=== PATIENT | female | born 1995 | race Caucasian/White ===

== ENCOUNTER 2016-05-26 13:53 | Emergency (ER) | payer MEDICAID, OTHER ==
[~2016-05-26 13:53] MED LIST: ACCUTES VI; CLIN1CAP5 PO; METF500T PO; [UNRECOGNIZED DRUG - CODE] VI
--- NOTE | 2016-05-26 16:03 | EDDOCDS ---
Nurse's Notes [facility] Name: Elena Morejon Age: 20 yrs Sex: Female : 1995 Arrival Date: 05/26/2016 Time: 13:53 Bed [facility] Private MD: NO PRIMARY PHYSICIAN, . Diagnosis: Adjustment disorder with depressed mood Presentation: 05/26 14:02 Presenting complaint: Patient states: MHE, states feeling sad because her father joann doesn't love her. Denies feeling suicidal or homicidal, ''I just want to talk to someone''. Mental Health Triage Level: Level 1- Pt displays no suicidal or homicidal ideations and does not appear to be a danger to self or others. Adult Sepsis Screening: The patient does not have new or worsening altered mentation. Patient's respiratory rate is less than 22. Systolic blood pressure is greater than 100. Patient has a qSOFA score of 0- Negative Sepsis Screen. Suicide/Homicide risk assessment- the patient denies having any suicidal and/or homicidal ideations and does not present with any other emotional, behavioral or mental health complaints. Status: Patient is not a food service substitute or dependent. Transition of care: patient was not received from another setting of care. 14:02 Acuity: SILVIA Level 4 [facility] 14:02 Method Of Arrival: Walkin/Carried/Asstd [facility] 14:11 Red Flag criteria, patient assessed and taken directly to a bed. [facility] Triage Assessment: 14:07 General: Appears in no apparent distress, comfortable, Behavior is cooperative. Pain: dwg Denies pain. Pt Declines HIV testing. 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 metformin 500 mg Oral Tb24 1 tab 2 times per day (Last dose: 05/26/2016 08:00) 2. Toujeo SoloStar 300 unit/mL (1.5 mL) subcutaneous inpn 26 unit nightly (Last dose: 05/25/2016) 3. NR insulin sliding scale three times a day 4. omeprazole 20 mg Oral cpDR 1 cap 2 times per day (Last dose: 05/26/2016 08:00) - PMHx: GERD; right knee pain; Type 2 Diabetes on Insulin with poor control; - PSHx: Drained fluid form right knee; - Social history: Smoking status: Patient states was never smoker of tobacco. No barriers to communication noted, The patient speaks fluent Italian. - Family history: Not pertinent. - : The pt / caregiver states he / she is not on anticoagulants. Home medication list is obtained from. - Exposure Risk Screening:: None identified. Screenin:00 Infection Control. elp 16:00 Screening information is obtained from the patient. Fall risk: No risks identified. pml Assistance ADL's: requires no assistance with activities of daily living. Abuse/DV Screen: The patient / caregiver reports he/she is: not in a situation that causes fear, pain or injury. Nutritional screening: No deficits noted. Advance Directives: Currently, there is no health care proxy. home support is adequate. Assessment: 14:15 General: Appears in no apparent distress, comfortable, Behavior is appropriate for age, pml crying. General: Appears unkempt. Neurological: Level of Consciousness is awake, alert, Oriented to person, place, time. Cardiovascular: Capillary refill < 3 seconds. Respiratory: Airway is patent Respiratory effort is even, unlabored. GI: Abdomen is non- distended. Derm: Skin is pink, warm & dry. 15:16 General: pt pacing in room. SO at bedside. awaiting conversation with PSA. pml 16:00 General: Appears in no apparent distress, comfortable, Behavior is appropriate for age. pml Neurological: Neurological: Level of Consciousness is awake, alert, Oriented to person, place, time. Cardiovascular: Capillary refill < 3 seconds. Respiratory: Airway is patent Respiratory effort is even, unlabored. Derm: Skin is pink, warm & dry. Vital Signs: 14:01 BP 146 / 95; Pulse 135; Resp 20; Temp 98.8; Pulse Ox 97% ; Weight 104.33 kg; Height 5 elp ft. 10 in. (177.80 cm); Pain 0/10; 16:00 BP 150 / 91; Pulse 120; Resp 20; Temp 97.4; Pulse Ox 98% on R/A; pml 14:01 Body Mass Index 33.00 (104.33 kg, 177.80 cm) elp Vitals: 14:01 Log In Time: May 26, 2016 at 13:59. RN notified that patient meets Red Flag elp criteria. ED Course: 13:59 Patient visited by Patchen, Bernice, LEAD MOBILE DEVELOPER. elp 13:59 Patient moved to Waiting elp 14:00 NO PRIMARY PHYSICIAN, . is Private Physician. elp 14:00 Patient moved to 31 elp 14:04 Triage Initiated dwg 14:29 Patient moved to [facility] pml 14:36 Jaylin Main, MATTHEW [facility]. le 14:42 Patient visited by Liam Oneil. dpm 14:43 Patient visited by Jaylin Main FNP. le 14:50 Patient visited by Liam Oneil. dpm 14:57 Patient visited by Yodit Veras,KOMAL. pml 15:11 Patient visited by Liam Oneil. dpm 15:16 Patient visited by Yodit Veras RN. pml 15:33 Patient visited by Liam Oneil. dpm 15:45 Patient visited by Liam Oneil. dpm 15:45 [facility] [place] Agreement was scanned into [employer] and attached to record. lg 15:47 Referral list, As provided by PFS is Referral Physician. le 16:00 The patient / caregiver is instructed regarding the plan of care and ED course. Patient pml has correct armband on for positive identification. Placed in gown. Bed in low position. Call light in reach. Side rails up X2. 16:00 No IV's were initiated during this patient's visit. No procedures done that require pml assistance. Order Results: There are currently no results for this order. Outcome: 15:47 Discharge ordered by Provider. le 16:00 Discharge Assessment: Patient awake, alert and oriented x 3. No cognitive and/or pml functional deficits noted. Patient verbalized understanding of disposition instructions. patient administered narcotics - no. The following High Risk Discharge criteria are identified: None. Discharged to home ambulatory. Condition: good Condition: stable. Discharge instructions given to patient, Instructed on discharge instructions, follow up and referral plans. No special radiology studies were completed. Property sent home with patient. 16:02 Patient left the ED. pml Signatures: Chance Benson RN RN Enrico Francois, Reg Reg lg Jaylin Main, MATTHEW SALESPERSON [employer] le Yodit Veras RN RN pml Liam Oneil dpm Bernice Rodriguez, LEAD MOBILE DEVELOPER LEAD MOBILE DEVELOPER elp MTDD
--- NOTE | 2016-05-26 16:03 | EDDOCDS ---
Physician Documentation [facility] Name: Elena Morejon Age: 20 yrs Sex: Female : 1995 Arrival Date: 05/26/2016 Time: 13:53 Bed [facility] Private MD: NO PRIMARY PHYSICIAN, . Disposition: 05/26/16 15:47 Discharged to Home/Self Care. Impression: Adjustment disorder with depressed mood. - Condition is Stable. - Discharge Instructions: Depression, Adult. - Medication Reconciliation, Local Pharmacy Hours form. - Follow up: Referral list, As provided by PFS; When: Call to arrange an appointment; Reason: Recheck today's complaints, Continuance of care. - Problem is an acute exacerbation. - Symptoms are unchanged. - Notes: Return to the ED for worsening symptoms. Especially if feeling suicidal Historical: - Allergies: no known allergies; - Home Meds: 1. metformin 500 mg Oral Tb24 1 tab 2 times per day (Last dose: 05/26/2016 08:00) 2. Toujeo SoloStar 300 unit/mL (1.5 mL) subcutaneous inpn 26 unit nightly (Last dose: 05/25/2016) 3. NR insulin sliding scale three times a day 4. omeprazole 20 mg Oral cpDR 1 cap 2 times per day (Last dose: 05/26/2016 08:00) - PMHx: GERD; right knee pain; Type 2 Diabetes on Insulin with poor control; - PSHx: Drained fluid form right knee; - Social history: Smoking status: Patient states was never smoker of tobacco. No barriers to communication noted, The patient speaks fluent Khmer. - Family history: Not pertinent. - : The pt / caregiver states he / she is not on anticoagulants. Home medication list is obtained from. - Exposure Risk Screening:: None identified. 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 10 in. (177.80 cm); Pain 0/10; 16:00 BP 150 / 91; Pulse 120; Resp 20; Temp 97.4; Pulse Ox 98% on R/A; pml 14:01 Body Mass Index 33.00 (104.33 kg, 177.80 cm) elp MDM: 15:29 Financial registration complete. lg 15:45 [facility] Payment Agreement was scanned into [employer] and attached to record. lg Signatures: Chance Benson, RN RN dwEnrico Francois, Reg Reg lg Jaylin Main, COLDFUSION COLDFUSION Yodit Nichole RN RN pml The chart was reviewed and I authenticate all verbal orders and agree with the evaluation and treatment provided.Attachments: 15:45 [facility] Payment Agreement lg MTDD
--- NOTE | 2016-05-28 17:04 | EDDOCDS ---
Physician Documentation [facility] Name: Elena Morejon Age: 20 yrs Sex: Female : 1995 Arrival Date: 05/26/2016 Time: 13:53 Bed [facility] Private MD: NO PRIMARY PHYSICIAN, . Disposition: 05/26/16 15:47 Discharged to Home/Self Care. Impression: Adjustment disorder with depressed mood. - Condition is Stable. - Discharge Instructions: Depression, Adult. - Medication Reconciliation, Local Pharmacy Hours form. - Follow up: Referral list, As provided by PFS; When: Call to arrange an appointment; Reason: Recheck today's complaints, Continuance of care. - Problem is an acute exacerbation. - Symptoms are unchanged. - Notes: Return to the ED for worsening symptoms. Especially if feeling suicidal Historical: - Allergies: no known allergies; - Home Meds: 1. metformin 500 mg Oral Tb24 1 tab 2 times per day (Last dose: 05/26/2016 08:00) 2. Toujeo SoloStar 300 unit/mL (1.5 mL) subcutaneous inpn 26 unit nightly (Last dose: 05/25/2016) 3. NR insulin sliding scale three times a day 4. omeprazole 20 mg Oral cpDR 1 cap 2 times per day (Last dose: 05/26/2016 08:00) - PMHx: GERD; right knee pain; Type 2 Diabetes on Insulin with poor control; - PSHx: Drained fluid form right knee; - Social history: Smoking status: Patient states was never smoker of tobacco. No barriers to communication noted, The patient speaks fluent Azeri. - Family history: Not pertinent. - : The pt / caregiver states he / she is not on anticoagulants. Home medication list is obtained from. - Exposure Risk Screening:: None identified. 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 10 in. (177.80 cm); Pain 0/10; 16:00 BP 150 / 91; Pulse 120; Resp 20; Temp 97.4; Pulse Ox 98% on R/A; pml 14:01 Body Mass Index 33.00 (104.33 kg, 177.80 cm) elp MDM: 15:29 Financial registration complete. lg 15:45 [facility] [place] Payment Agreement was scanned into [employer] and attached to record. lg 16:03 PSA Outpatient Referrals was scanned into [employer] and attached to record. jl 05/27 11:06 T-Sheet-- Draft Copy was scanned into [employer] and attached to record. gb Signatures: Chance Benson, RN RN dwg Markos Smith, PSA PSA jl Brenda Apodaca, Reg Reg gb Enrico Beaulieu, Reg Reg lg Jaylin Main, PRECISION DYER PRECISION DYER Yodit Nichole RN RN pml The chart was reviewed and I authenticate all verbal orders and agree with the evaluation and treatment provided.Attachments: 05/26 15:45 [facility] [place] Payment Agreement lg 05/27 11:06 T-Sheet-- Draft Copy gb Chart Complete MTDD
--- NOTE | 2016-05-28 17:04 | EDDOCDS ---
Nurse's Notes [facility] Name: Elena Morejon Age: 20 yrs Sex: Female : 1995 Arrival Date: 05/26/2016 Time: 13:53 Bed [facility] Private MD: NO PRIMARY PHYSICIAN, . Diagnosis: Adjustment disorder with depressed mood Presentation: 05/26 14:02 Presenting complaint: Patient states: MHE, states feeling sad because her father joann doesn't love her. Denies feeling suicidal or homicidal, ''I just want to talk to someone''. Mental Health Triage Level: Level 1- Pt displays no suicidal or homicidal ideations and does not appear to be a danger to self or others. Adult Sepsis Screening: The patient does not have new or worsening altered mentation. Patient's respiratory rate is less than 22. Systolic blood pressure is greater than 100. Patient has a qSOFA score of 0- Negative Sepsis Screen. Suicide/Homicide risk assessment- the patient denies having any suicidal and/or homicidal ideations and does not present with any other emotional, behavioral or mental health complaints. Status: Patient is not a auto service representative or dependent. Transition of care: patient was not received from another setting of care. 14:02 Acuity: SILVIA Level 4 [facility] 14:02 Method Of Arrival: Walkin/Carried/Asstd [facility] 14:11 Red Flag criteria, patient assessed and taken directly to a bed. [facility] Triage Assessment: 14:07 General: Appears in no apparent distress, comfortable, Behavior is cooperative. Pain: dwg Denies pain. Pt Declines HIV testing. VP INTEGRATION: 14:07 LMP 05/22/2016 [facility] Historical: - Allergies: no known allergies; - Home Meds: 1. metformin 500 mg Oral Tb24 1 tab 2 times per day (Last dose: 05/26/2016 08:00) 2. Toujeo SoloStar 300 unit/mL (1.5 mL) subcutaneous inpn 26 unit nightly (Last dose: 05/25/2016) 3. NR insulin sliding scale three times a day 4. omeprazole 20 mg Oral cpDR 1 cap 2 times per day (Last dose: 05/26/2016 08:00) - PMHx: GERD; right knee pain; Type 2 Diabetes on Insulin with poor control; - PSHx: Drained fluid form right knee; - Social history: Smoking status: Patient states was never smoker of tobacco. No barriers to communication noted, The patient speaks fluent Arabic. - Family history: Not pertinent. - : The pt / caregiver states he / she is not on anticoagulants. Home medication list is obtained from. - Exposure Risk Screening:: None identified. Screenin:00 Infection Control. elp 16:00 Screening information is obtained from the patient. Fall risk: No risks identified. pml Assistance ADL's: requires no assistance with activities of daily living. Abuse/DV Screen: The patient / caregiver reports he/she is: not in a situation that causes fear, pain or injury. Nutritional screening: No deficits noted. Advance Directives: Currently, there is no health care proxy. home support is adequate. Assessment: 14:15 General: Appears in no apparent distress, comfortable, Behavior is appropriate for age, pml crying. General: Appears unkempt. Neurological: Level of Consciousness is awake, alert, Oriented to person, place, time. Cardiovascular: Capillary refill < 3 seconds. Respiratory: Airway is patent Respiratory effort is even, unlabored. GI: Abdomen is non- distended. Derm: Skin is pink, warm & dry. 15:16 General: pt pacing in room. SO at bedside. awaiting conversation with PSA. pml 16:00 General: Appears in no apparent distress, comfortable, Behavior is appropriate for age. pml Neurological: Neurological: Level of Consciousness is awake, alert, Oriented to person, place, time. Cardiovascular: Capillary refill < 3 seconds. Respiratory: Airway is patent Respiratory effort is even, unlabored. Derm: Skin is pink, warm & dry. Mental Health Eval: 16:04 Mental health consult is initiated at 15:15. Status: The patient is not a auto service representative or dependent. [facility] Behavioral Health: The patient is not an established patient of [facility] Behavioral Health. Referral Information: Evaluation referral is generated by the patent herself, after attempting to be seen as a walk-in at [facility] by her s.o.'s therapist. The patient was referred for evaluation because of depressed mood & sadness related to her strained relationship with her father. Subjective: The patients chief complaint is "I went up to the clinic where my boyfriend goes, but they couldn't see me. They said if I came here you could give me a referral". Delusions are denied. Patient's mood is depressed. Hallucinations are denied. Patient is here with her boyfriend, who reports that he sees Edna Mendoza at [facility]. She reports that she attempted to speak with his therapist today as a walk-in, however was advised that it would not be possible. Patent's boyfriend reports that Ms. Mendoza told them that if they came here, they'd be given a referral & could then be seen. Patient describes feeling sad & depressed over the strained relationship with her father. She says that they used to be very close, however he is now involved with a new girlfriend & that his attitude toward her has changed. She states that he doesn't spend much time with her & never tells her that he loves her. She reports seeing him in public today, at which time she approached him. She says that she gave him a hug, told him that she missed him & that she loved him. She states that he did not reciprocate, prompting her to feel rejected. She places the blame upon the new girlfriend & says that her boyfriend even chastised her father for his behavior. She denies SI/HI & is easily able to CFS. She is requesting assistance in getting into treatment with the [facility] clinic, and otherwise denies having any needs. Mental Health history: depression, Mental Health Admissions: None. Current Outpatient Mental Health Services: No current treatment. She states that she used to see the mental health clinic at [facility], although has not been an active patient there for 2-3 months. Current living environment is The patient currently lives with her boyfriend. Patient presents to Emergency Department with the following symptoms within the past 2 weeks: depressed mood, relational problem. Substance abuse: Patient denies having any relevant substance abuse hx & used to see [facility] strictly for mental health. Mental status exam: Patients appearance is disheveled Patient's behavior is cooperative, Speech is normal. Affect is restricted. Mood is depressed. Hallucinations are denied. Appetite is normal. Memory is good. Energy level is normal. Content of thought is normal. Thought process is intact. Cognitive level is oriented to person, place, time and situation Patient's insight is good. Judgement is good. Rapport with interviewer is good. Suicidal Ideation is denied. Homicidal ideation is denied. Disposition: Medically cleared for disposition by Jaylin CASTRO Psychiatric Consult is deferred per ED physician, MATTHEW Quinn. The patient has a safe destination which is home with her boyfriend. [facility] Admission Criteria: Not Applicable. 16:23 Narrative: Sandra Carrilloa, [facility] Sail Repair Person, was unable to be reached by phone. Per patient request, an email has been sent to Ms. Hall, with request to either follow up with the patient or ED PSA on Sunday to arrange patient's intake appointment. Vital Signs: 14:01 BP 146 / 95; Pulse 135; Resp 20; Temp 98.8; Pulse Ox 97% ; Weight 104.33 kg; Height 5 elp ft. 10 in. (177.80 cm); Pain 0/10; 16:00 BP 150 / 91; Pulse 120; Resp 20; Temp 97.4; Pulse Ox 98% on R/A; pml 14:01 Body Mass Index 33.00 (104.33 kg, 177.80 cm) elp Vitals: 14:01 Log In Time: May 26, 2016 at 13:59. RN notified that patient meets Red Flag elp criteria. ED Course: 13:59 Patient visited by Bernice Rodriguez PCA. elp 13:59 Patient moved to Waiting elp 14:00 NO PRIMARY PHYSICIAN, . is Private Physician. elp 14:00 Patient moved to 31 elp 14:04 Triage Initiated dwg 14:29 Patient moved to [facility] pml 14:36 Jaylin Main FNP [facility]. le 14:42 Patient visited by Liam Oneil. dpm 14:43 Patient visited by Jaylin Main FNP. le 14:50 Patient visited by Liam Oneil. dpm 14:57 Patient visited by Yodit Veras,KOMAL. pml 15:11 Patient visited by Liam Oneil. dpm 15:16 Patient visited by Yodit Versa,KOMAL. pml 15:33 Patient visited by Liam Oneil. dpm 15:45 Patient visited by Liam Oneil. dpm 15:45 [facility] [place] was scanned into [employer] and attached to record. lg 15:47 Referral list, As provided by PFS is Referral Physician. le 16:00 The patient / caregiver is instructed regarding the plan of care and ED course. Patient pml has correct armband on for positive identification. Placed in gown. Bed in low position. Call light in reach. Side rails up X2. 16:00 No IV's were initiated during this patient's visit. No procedures done that require pml assistance. 16:03 PSA Outpatient Referrals was scanned into [employer] and attached to record. esvin 05/27 11:06 T-Sheet-- Draft Copy was scanned into [employer] and attached to record. gb Order Results: There are currently no results for this order. Outcome: 05/26 15:47 Discharge ordered by Provider. le 16:00 Discharge Assessment: Patient awake, alert and oriented x 3. No cognitive and/or pml functional deficits noted. Patient verbalized understanding of disposition instructions. patient administered narcotics - no. The following High Risk Discharge criteria are identified: None. Discharged to home ambulatory. Condition: good Condition: stable. Discharge instructions given to patient, Instructed on discharge instructions, follow up and referral plans. No special radiology studies were completed. Property sent home with patient. 16:02 Patient left the ED. pml Signatures: Chance Benson, RN RN dwg Markos Smith, PSA PSA jl Brenda Apodaca, Reg Reg gb Enrico Beaulieu, Reg Reg lg Jaylin Main, DOT COMPLIANCE SPECIALIST DOT COMPLIANCE SPECIALIST Yodit Nichole RN RN pml Liam Oneil dpm, Erin, PV DESIGN AND INSTALLATION TECHNICIAN PV DESIGN AND INSTALLATION TECHNICIAN elp Chart Complete MTDD
--- NOTE | 2016-05-28 17:04 | EDDOCDS ---
Physician Documentation [facility] Name: Elena Morejon Age: 20 yrs Sex: Female : 1995 Arrival Date: 05/26/2016 Time: 13:53 Bed [facility] Private MD: NO PRIMARY PHYSICIAN, . Disposition: 05/26/16 15:47 Discharged to Home/Self Care. Impression: Adjustment disorder with depressed mood. - Condition is Stable. - Discharge Instructions: Depression, Adult. - Medication Reconciliation, Local Pharmacy Hours form. - Follow up: Referral list, As provided by [facility]; When: Call to arrange an appointment; Reason: Recheck today's complaints, Continuance of care. - Problem is an acute exacerbation. - Symptoms are unchanged. - Notes: Return to the ED for worsening symptoms. Especially if feeling suicidal Historical: - Allergies: no known allergies; - Home Meds: 1. metformin 500 mg Oral Tb24 1 tab 2 times per day (Last dose: 05/26/2016 08:00) 2. Toujeo SoloStar 300 unit/mL (1.5 mL) subcutaneous inpn 26 unit nightly (Last dose: 05/25/2016) 3. NR insulin sliding scale three times a day 4. omeprazole 20 mg Oral cpDR 1 cap 2 times per day (Last dose: 05/26/2016 08:00) - PMHx: GERD; right knee pain; Type 2 Diabetes on Insulin with poor control; - PSHx: Drained fluid form right knee; - Social history: Smoking status: Patient states was never smoker of tobacco. No barriers to communication noted, The patient speaks fluent Hebrew. - Family history: Not pertinent. - : The pt / caregiver states he / she is not on anticoagulants. Home medication list is obtained from. - Exposure Risk Screening:: None identified. APPEALS SPECIALIST: 05/26 14:07 LMP 05/22/2016 dwg Vital Signs: 14:01 BP 146 / 95; Pulse 135; Resp 20; Temp 98.8; Pulse Ox 97% ; Weight 104.33 kg / 230.01 elp lbs; Height 5 ft. 10 in. (177.80 cm); Pain 0/10; 16:00 BP 150 / 91; Pulse 120; Resp 20; Temp 97.4; Pulse Ox 98% on R/A; pml 14:01 Body Mass Index 33.00 (104.33 kg, 177.80 cm) elp MDM: 15:29 Financial registration complete. lg 15:45 [facility] Payment Agreement was scanned into [employer] and attached to record. lg 16:03 [facility] Outpatient Referrals was scanned into [employer] and attached to record. jl 05/27 11:06 T-Sheet-- Draft Copy was scanned into [employer] and attached to record. gb Signatures: Chance Benson, RN RN dwg Markos Smith, PSA PSA jl Brenda Apodaca, Reg Reg gb Enrico Beaulieu, Reg Reg lg Jaylin Main, FISH HATCHERY SUPERVISOR FISH HATCHERY SUPERVISOR Yodit Nichole RN RN pml The chart was reviewed and I authenticate all verbal orders and agree with the evaluation and treatment provided.Attachments: 05/26 15:45 [facility] Payment Agreement lg 05/27 11:06 T-Sheet-- Draft Copy gb Chart Complete MTDD
== END 2016-05-26 16:02 | disposition home or self-care (01) ==
LOC: M ED 13:53
DX: F32.9 Major depressive disorder, single episode, unspecified (principal); E11.9 Type 2 diabetes mellitus without complications; K21.9 Gastro-esophageal reflux disease without esophagitis; M25.561 Pain in right knee; Z79.899 Other long term (current) drug therapy; Z79.4 Long term (current) use of insulin; Z79.84 Long term (current) use of oral hypoglycemic drugs

== ENCOUNTER 2016-05-31 20:16 | Emergency (ER) | payer OTHER | END 2016-05-31 20:45 | disposition left against medical advice (07) | LOC: M ED 20:16 | DX: R10.9 Unspecified abdominal pain (principal); Z53.29 Procedure and treatment not carried out because of patient's decision for other reasons ==

== ENCOUNTER 2016-06-13 11:42 | Emergency (ER) | payer OTHER ==
--- NOTE | 2016-06-13 12:51 | EDDOCDS ---
Physician Documentation [facility] Name: Elena Morejon Age: 20 yrs Sex: Female : 1995 Arrival Date: 06/13/2016 Time: 11:42 Bed TR7 Private MD: NO PRIMARY PHYSICIAN, . Disposition: 06/13 12:22 The patient was provided with a printed prescription due complicated or complex ke instructions that prevent electronic transmission. Disposition: 06/13/16 12:48 Discharged to Home/Self Care. Impression: Encounter for issue of repeat prescription. - Condition is Stable. - Discharge Instructions: Medicine Refill at the Emergency Department. - Prescriptions for SOLOSTAR - inject 26 unit by SUBCUTANEOUS route at bedtime; 1 Applicator. insulin NPH and regular human - inject 1 Container by SUBCUTANEOUS route as needed sliding scale as directed; 1 bottle. omeprazole 20 mg Oral capsule,delayed release(DR/EC) - take 1 capsule by ORAL route once daily; 15 capsule. Metformin 500 mg Oral Tablet - take 1 tablet by ORAL route 3 times per day with morning and evening meals; 45 tablet. - Medication Reconciliation, Local Pharmacy Hours form. - Follow up[facility]; When: Call to arrange an appointment; Reason: Recheck today's complaints. - Problem is an ongoing problem. - Symptoms are resolved. Historical: - Allergies: no known allergies; - Home Meds: 1. metformin 500 mg Oral Tb24 1 tab three times a day (Last dose: 06/07/2016) 2. Toujeo SoloStar 300 unit/mL (1.5 mL) subcutaneous inpn 26 unit nightly (Last dose: 06/07/2016) 3. NR insulin sliding scale three times a day (Last dose: 06/07/2016) 4. Vitamin D Oral 25,000 unit weekly (Last dose: 06/07/2016) 5. omeprazole 20 mg Oral cpDR 1 cap 2 times per day (Last dose: 06/12/2016 09:00) - PMHx: GERD; right knee pain; Type 2 Diabetes on Insulin with poor control; - PSHx: Drained fluid form right knee; - Social history: Smoking status: Patient states former smoker of tobacco. No barriers to communication noted, The patient speaks fluent Ecuadorean, Speaks appropriately for age. - : The pt / caregiver states he / she is not on anticoagulants. Home medication list is obtained from the patient, family members, Unable to Verify Home Med List with the patient / caregiver. - Exposure Risk Screening:: None identified. 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 10 in. (177.80 cm); 11:43 Body Mass Index 34.87 (110.22 kg, 177.80 cm) elp MDM: 11:50 Accucheck ordered. cc10 12:43 Financial registration complete. mm15 12:47 [facility] Payment Agreement was scanned into [employer] and attached to record. mm15 Point of Care Testing: Blood Glucose: 12:05 Blood Glucose: 330 mg/dL; mlb1 Ranges: Signatures: Filemon Gray, ELEMENTARY INSTRUCTIONAL COACH ELEMENTARY INSTRUCTIONAL COACH Kaia Chavez RN RN hs1 Audelia Go mm15 Sena Jose RN RN mk4 Vipul Armstrong, PASmitha PA-C cc10 The chart was reviewed and I authenticate all verbal orders and agree with the evaluation and treatment provided.Attachments: 12:47 [facility] Payment Agreement mm15 MTDD
--- NOTE | 2016-06-13 12:51 | EDDOCDS ---
Nurse's Notes [facility] Name: Elena Morejon Age: 20 yrs Sex: Female : 1995 Arrival Date: 06/13/2016 Time: 11:42 Bed TR7 Private MD: NO PRIMARY PHYSICIAN, . Diagnosis: Encounter for issue of repeat prescription Presentation: 06/13 11:45 Presenting complaint: Patient states: does not have primary care provider however is hs1 out of test strips and Novolin insulin, Toujeo Insulin and also out of metformin and Vitamin D. Father reports that she has been out of test strips for 1 week, vitamin D since last , and out of insulins for the past week as well. Adult Sepsis Screening: The patient does not have new or worsening altered mentation. Patient's respiratory rate is less than 22. Systolic blood pressure is greater than 100. Patient has a qSOFA score of 0- Negative Sepsis Screen. Suicide/Homicide risk assessment- the patient denies having any suicidal and/or homicidal ideations and does not present with any other emotional, behavioral or mental health complaints. Status: Patient is not a territory service representative or dependent. Transition of care: patient was not received from another setting of care. 11:45 Method Of Arrival: Walkin/Carried/Asstd hs1 11:52 Acuity: Unassigned hs1 12:05 Acuity: SILVIA Level 4 mlb1 Triage Assessment: 11:51 General: Appears unkempt, Behavior is appropriate for age, inappropriate for age. hs1 General: Patient reports checking her sugar this morning at 321 mg/dL . Pain: Denies pain. HIV screening NA for this visit Offered previously. Respiratory: No deficits noted. Derm: Skin is pink, warm & dry. normal. 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 metformin 500 mg Oral Tb24 1 tab three times a day (Last dose: 06/07/2016) 2. Toujeo SoloStar 300 unit/mL (1.5 mL) subcutaneous inpn 26 unit nightly (Last dose: 06/07/2016) 3. NR insulin sliding scale three times a day (Last dose: 06/07/2016) 4. Vitamin D Oral 25,000 unit weekly (Last dose: 06/07/2016) 5. omeprazole 20 mg Oral cpDR 1 cap 2 times per day (Last dose: 06/12/2016 09:00) - PMHx: GERD; right knee pain; Type 2 Diabetes on Insulin with poor control; - PSHx: Drained fluid form right knee; - Social history: Smoking status: Patient states former smoker of tobacco. No barriers to communication noted, The patient speaks fluent Nauruan, Speaks appropriately for age. - : The pt / caregiver states he / she is not on anticoagulants. Home medication list is obtained from the patient, family members, Unable to Verify Home Med List with the patient / caregiver. - Exposure Risk Screening:: None identified. Screenin:45 Infection Control. elp 12:06 Screening information is obtained from the patient. Fall risk: No risks identified. mlb1 Assistance ADL's: requires no assistance with activities of daily living. Abuse/DV Screen: The patient / caregiver reports he/she is: not in a situation that causes fear, pain or injury. Nutritional screening: No deficits noted. Advance Directives: Currently, there is no health care proxy. home support is adequate. Vital Signs: 11:43 BP 151 / 78; Pulse 102; Resp 16; Temp 98.3(O); Pulse Ox 99% on R/A; Weight 110.22 kg; elp Height 5 ft. 10 in. (177.80 cm); 11:43 Body Mass Index 34.87 (110.22 kg, 177.80 cm) el Vitals: 11:43 Log In Time: June 13, 2016 at 11:41. [facility] ED Course: 11:42 Patient visited by Bernice Rodriguez PCA. elp 11:42 Patient moved to Waiting elp 11:43 NO PRIMARY PHYSICIAN, . is Private Physician. elp 11:44 Patient visited by Bernice Rodriguez PCA. elp 11:44 Patient moved to Pre RCE elp 11:48 Triage Initiated hs1 11:53 Patient moved to Triage 2 hs1 12:05 Vipul Armstrong PA-C is PHCP. cc10 12:05 Zenobia Joya MD is Attending Physician. cc10 12:06 The patient / caregiver is instructed regarding the plan of care and ED course. mlb1 12:10 Filemon Gray FNP is PHCP. ke 12:10 Patient visited by Filemon Gray FNP. ke 12:10 Patient visited by Filemon Gray FNP. ke 12:36 Patient moved to TR7 mk4 12:43 Patient visited by Sena Jose, RN. mk4 12:45 [facility] is Referral Physician. mk4 12:47 [facility] Payment Agreement was scanned into [employer] and attached to record. mm15 Point of Care Testing: Blood Glucose: 12:05 Blood Glucose: 330 mg/dL; mlb1 Ranges: Order Results: Lab Order: Fingerstick Blood Sugar; SPEC'M 06/13/16 12:04 Test: BEDSIDE GLUCOSE; Value: 330; Range: 70-105; Abnormal: Above high normal; Units: MG/DL; Status: F Outcome: 12:48 Discharge ordered by Provider. mk4 12:50 Patient left the ED. ke Signatures: Filemon Gray FNP FNP ke Barney, Michael B, RN RN mlb1 Kaia Marques RN RN hs1 Audelia Go mm15 Bernice Rodriguez, MOWER MECHANIC MOWER MECHANIC elp Sena Jose, RN RN mk4 Vipul Armstrong, PA-C PA-C cc10 Corrections: (The following items were deleted from the chart) 11:52 11:45 Acuity: SILVIA Level 3 hs1 hs1 11:52 11:52 Acuity: SILVIA Level 5 hs1 hs1 MTDD
--- NOTE | 2016-06-15 13:51 | EDDOCDS ---
Nurse's Notes [facility] Name: Elena Morejon Age: 20 yrs Sex: Female : 1995 Arrival Date: 06/13/2016 Time: 11:42 Bed TR7 Private MD: NO PRIMARY PHYSICIAN, . Diagnosis: Encounter for issue of repeat prescription Presentation: 06/13 11:45 Presenting complaint: Patient states: does not have primary care provider however is hs1 out of test strips and Novolin insulin, Toujeo Insulin and also out of metformin and Vitamin D. Father reports that she has been out of test strips for 1 week, vitamin D since last , and out of insulins for the past week as well. Adult Sepsis Screening: The patient does not have new or worsening altered mentation. Patient's respiratory rate is less than 22. Systolic blood pressure is greater than 100. Patient has a qSOFA score of 0- Negative Sepsis Screen. Suicide/Homicide risk assessment- the patient denies having any suicidal and/or homicidal ideations and does not present with any other emotional, behavioral or mental health complaints. Status: Patient is not a service center assistant or dependent. Transition of care: patient was not received from another setting of care. 11:45 Method Of Arrival: Walkin/Carried/Asstd hs1 11:52 Acuity: Unassigned hs1 12:05 Acuity: SILVIA Level 4 mlb1 Triage Assessment: 11:51 General: Appears unkempt, Behavior is appropriate for age, inappropriate for age. hs1 General: Patient reports checking her sugar this morning at 321 mg/dL . Pain: Denies pain. HIV screening NA for this visit Offered previously. Respiratory: No deficits noted. Derm: Skin is pink, warm & dry. normal. 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 metformin 500 mg Oral Tb24 1 tab three times a day (Last dose: 06/07/2016) 2. Toujeo SoloStar 300 unit/mL (1.5 mL) subcutaneous inpn 26 unit nightly (Last dose: 06/07/2016) 3. NR insulin sliding scale three times a day (Last dose: 06/07/2016) 4. Vitamin D Oral 25,000 unit weekly (Last dose: 06/07/2016) 5. omeprazole 20 mg Oral cpDR 1 cap 2 times per day (Last dose: 06/12/2016 09:00) - PMHx: GERD; right knee pain; Type 2 Diabetes on Insulin with poor control; - PSHx: Drained fluid form right knee; - Social history: Smoking status: Patient states former smoker of tobacco. No barriers to communication noted, The patient speaks fluent Central African, Speaks appropriately for age. - Family history: Not pertinent. - : The pt / caregiver states he / she is not on anticoagulants. Home medication list is obtained from the patient, family members, Unable to Verify Home Med List with the patient / caregiver. - Exposure Risk Screening:: None identified. Screenin:45 Infection Control. elp 12:06 Screening information is obtained from the patient. Fall risk: No risks identified. mlb1 Assistance ADL's: requires no assistance with activities of daily living. Abuse/DV Screen: The patient / caregiver reports he/she is: not in a situation that causes fear, pain or injury. Nutritional screening: No deficits noted. Advance Directives: Currently, there is no health care proxy. home support is adequate. Assessment: 12:10 General: Appears in no apparent distress. Pain: Denies pain. Awake, alert, oriented. mk4 Skin warm and dry. Moves all extremities. No apparent distress. The patient / caregiver is instructed regarding the plan of care and ED course. Physical assessment to be completed by PA/EDMD. Vital Signs: 11:43 BP 151 / 78; Pulse 102; Resp 16; Temp 98.3(O); Pulse Ox 99% on R/A; Weight 110.22 kg; elp Height 5 ft. 10 in. (177.80 cm); 11:43 Body Mass Index 34.87 (110.22 kg, 177.80 cm) [facility] Vitals: 11:43 Log In Time: June 13, 2016 at 11:41. [facility] ED Course: 11:42 Patient visited by Bernice Rodriguez PCA. elp 11:42 Patient moved to Waiting el 11:43 NO PRIMARY PHYSICIAN, . is Private Physician. elp 11:44 Patient visited by Bernice Rodriguez PCA. elp 11:44 Patient moved to Pre RCE elp 11:48 Triage Initiated hs1 11:53 Patient moved to Triage 2 hs1 12:05 [place], Vipul, [facility] cc10 12:05 Zenobia Joya MD is Attending Physician. cc10 12:06 The patient / caregiver is instructed regarding the plan of care and ED course. mlb1 12:10 Filemon Gray FNP is PHCP. ke 12:10 Patient visited by Filemon Gray FNP. ke 12:10 Patient visited by Filemon Gray FNP. ke 12:10 Accompanied by Caregiver, Family Member. mk4 12:36 Patient moved to TR7 mk4 12:43 Patient visited by Sena Jose, KOMAL. mk4 12:45 [facility] is Referral Physician. mk4 12:47 [facility] Payment Agreement was scanned into [employer] and attached to record. mm15 12:53 No IV's were initiated during this patient's visit. No procedures done that require mk4 assistance. 15:27 T-Sheet-- Draft Copy was scanned into [employer] and attached to record. gb Point of Care Testing: Blood Glucose: 12:05 Blood Glucose: 330 mg/dL; mlb1 Ranges: Order Results: Lab Order: Fingerstick Blood Sugar; SPEC'M 06/13/16 12:04 Test: BEDSIDE GLUCOSE; Value: 330; Range: 70-105; Abnormal: Above high normal; Units: MG/DL; Status: F Outcome: 12:48 Discharge ordered by Provider. mk4 12:50 Patient left the ED. ke 12:52 Discharge Assessment: Patient awake and alert. patient administered narcotics - no. The [facility] following High Risk Discharge criteria are identified: None. Discharged to home ambulatory. Condition: good Condition: stable. No special radiology studies were completed. Property sent home with patient. 12:53 The following High Risk Discharge criteria are identified: None. Discharged to home [facility] ambulatory. Signatures: Brenda Apodaca, Reg Reg gb Filemon Gray FNP SPOOLER RUBBER STRANDSeth Brannon RN RN mlb1 Kaia Marques RN RN hs1 Audelia Go mm15 Patchen, Bernice, SUPERSONIC ENGINEER SUPERSONIC ENGINEER elp Sena Jose RN RN 4 Vipul Armstrong PA-C PA-C cc10 Corrections: (The following items were deleted from the chart) 11:45 Acuity: SILVIA Level 3 hs1 hs1 11:52 Acuity: SILVIA Level 5 hs1 hs1 Chart Complete MTDD
--- NOTE | 2016-06-15 13:51 | EDDOCDS ---
Physician Documentation [facility] Name: Elena Morejon Age: 20 yrs Sex: Female : 1995 Arrival Date: 06/13/2016 Time: 11:42 Bed TR7 Private MD: NO PRIMARY PHYSICIAN, . Disposition: 06/13 12:22 The patient was provided with a printed prescription due complicated or complex ke instructions that prevent electronic transmission. Disposition: 06/13/16 12:48 Discharged to Home/Self Care. Impression: Encounter for issue of repeat prescription. - Condition is Stable. - Discharge Instructions: Medicine Refill at the Emergency Department. - Prescriptions for SOLOSTAR - inject 26 unit by SUBCUTANEOUS route at bedtime; 1 Applicator. insulin NPH and regular human - inject 1 Container by SUBCUTANEOUS route as needed sliding scale as directed; 1 bottle. omeprazole 20 mg Oral capsule,delayed release(DR/EC) - take 1 capsule by ORAL route once daily; 15 capsule. Metformin 500 mg Oral Tablet - take 1 tablet by ORAL route 3 times per day with morning and evening meals; 45 tablet. - Medication Reconciliation, Local Pharmacy Hours form. - Follow up: [facility]; When: Call to arrange an appointment; Reason: Recheck today's complaints. - Problem is an ongoing problem. - Symptoms are resolved. Historical: - Allergies: no known allergies; - Home Meds: 1. metformin 500 mg Oral Tb24 1 tab three times a day (Last dose: 06/07/2016) 2. Toujeo SoloStar 300 unit/mL (1.5 mL) subcutaneous inpn 26 unit nightly (Last dose: 06/07/2016) 3. NR insulin sliding scale three times a day (Last dose: 06/07/2016) 4. Vitamin D Oral 25,000 unit weekly (Last dose: 06/07/2016) 5. omeprazole 20 mg Oral cpDR 1 cap 2 times per day (Last dose: 06/12/2016 09:00) - PMHx: GERD; right knee pain; Type 2 Diabetes on Insulin with poor control; - PSHx: Drained fluid form right knee; - Social history: Smoking status: Patient states former smoker of tobacco. No barriers to communication noted, The patient speaks fluent Sammarinese, Speaks appropriately for age. - Family history: Not pertinent. - : The pt / caregiver states he / she is not on anticoagulants. Home medication list is obtained from the patient, family members, Unable to Verify Home Med List with the patient / caregiver. - Exposure Risk Screening:: None identified. 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 10 in. (177.80 cm); 11:43 Body Mass Index 34.87 (110.22 kg, 177.80 cm) elp MDM: 11:50 Accucheck ordered. cc10 12:43 Financial registration complete. 15 12:47 [facility] Payment Agreement was scanned into [employer] and attached to record. mm15 15:27 T-Sheet-- Draft Copy was scanned into [employer] and attached to record. gb Point of Care Testing: Blood Glucose: 12:05 Blood Glucose: 330 mg/dL; mlb1 Ranges: Signatures: Brenda Apodaca, Reg Reg gb Filemon Gray, CHISEL GRINDER CHISEL GRINDER Kaia Chavez RN RN hs1 Audelia Go mm15 Sena Jose RN RN mk4 Vipul Armstrong, PALMA PASmitha cc10 The chart was reviewed and I authenticate all verbal orders and agree with the evaluation and treatment provided.Attachments: 12:47 [facility] Payment Agreement mm15 15:27 T-Sheet-- Draft Copy gb Chart Complete MTDD
--- NOTE | 2016-06-15 13:51 | EDDOCDS ---
Physician Documentation [facility] Name: Elena Morejon Age: 20 yrs Sex: Female : 1995 Arrival Date: 06/13/2016 Time: 11:42 Bed TR7 Private MD: NO PRIMARY PHYSICIAN, . Disposition: 06/13 12:22 The patient was provided with a printed prescription due complicated or complex ke instructions that prevent electronic transmission. Disposition: 06/13/16 12:48 Discharged to Home/Self Care. Impression: Encounter for issue of repeat prescription. - Condition is Stable. - Discharge Instructions: Medicine Refill at the Emergency Department. - Prescriptions for SOLOSTAR - inject 26 unit by SUBCUTANEOUS route at bedtime; 1 Applicator. insulin NPH and regular human - inject 1 Container by SUBCUTANEOUS route as needed sliding scale as directed; 1 bottle. omeprazole 20 mg Oral capsule,delayed release(DR/EC) - take 1 capsule by ORAL route once daily; 15 capsule. Metformin 500 mg Oral Tablet - take 1 tablet by ORAL route 3 times per day with morning and evening meals; 45 tablet. - Medication Reconciliation, Local Pharmacy Hours form. - Follow up: [facility]; When: Call to arrange an appointment; Reason: Recheck today's complaints. - Problem is an ongoing problem. - Symptoms are resolved. Historical: - Allergies: no known allergies; - Home Meds: 1. metformin 500 mg Oral Tb24 1 tab three times a day (Last dose: 06/07/2016) 2. Toujeo SoloStar 300 unit/mL (1.5 mL) subcutaneous inpn 26 unit nightly (Last dose: 06/07/2016) 3. NR insulin sliding scale three times a day (Last dose: 06/07/2016) 4. Vitamin D Oral 25,000 unit weekly (Last dose: 06/07/2016) 5. omeprazole 20 mg Oral cpDR 1 cap 2 times per day (Last dose: 06/12/2016 09:00) - PMHx: GERD; right knee pain; Type 2 Diabetes on Insulin with poor control; - PSHx: Drained fluid form right knee; - Social history: Smoking status: Patient states former smoker of tobacco. No barriers to communication noted, The patient speaks fluent [place] Guinean, Speaks appropriately for age. - Family history: Not pertinent. - : The pt / caregiver states he / she is not on anticoagulants. Home medication list is obtained from the patient, family members, Unable to Verify Home Med List with the patient / caregiver. - Exposure Risk Screening:: None identified. 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 10 in. (177.80 cm); 11:43 Body Mass Index 34.87 (110.22 kg, 177.80 cm) elp MDM: 11:50 Accucheck ordered. cc10 12:43 Financial registration complete. 15 12:47 [facility] Payment Agreement was scanned into [employer] and attached to record. mm15 15:27 T-Sheet-- Draft Copy was scanned into [employer] and attached to record. gb Point of Care Testing: Blood Glucose: 12:05 Blood Glucose: 330 mg/dL; mlb1 Ranges: Signatures: Brenda Apodaca, Reg Reg gb Filemon Gray, FAMILY INTERVENTION SPECIALIST FAMILY INTERVENTION SPECIALIST Kaia Chavez RN RN hs1 Audelia Go mm15 Sena Jose RN RN mk4 Vipul Armstrong, PALMA PASmitha cc10 The chart was reviewed and I authenticate all verbal orders and agree with the evaluation and treatment provided.Attachments: 12:47 [facility] Payment Agreement mm15 15:27 T-Sheet-- Draft Copy gb Chart Complete MTDD
== END 2016-06-13 12:50 | disposition home or self-care (01) ==
LOC: M ED 11:42
DX: Z76.0 Encounter for issue of repeat prescription (principal); K21.9 Gastro-esophageal reflux disease without esophagitis; M25.561 Pain in right knee; E11.65 Type 2 diabetes mellitus with hyperglycemia; Z79.84 Long term (current) use of oral hypoglycemic drugs; Z79.4 Long term (current) use of insulin; Z79.899 Other long term (current) drug therapy

== ENCOUNTER 2016-06-27 23:17 | Emergency (ER) | payer OTHER ==
--- NOTE | 2016-06-28 00:48 | EDDOCDS ---
Physician Documentation [facility] Name: Elena Morejon Age: 21 yrs Sex: Female : 1995 Arrival Date: 06/27/2016 Time: 23:17 Bed I1 / M1 Private MD: NO PRIMARY PHYSICIAN, . Disposition: 06/28/16 00:30 Discharged to Home/Self Care. Impression: Sprain of unspecified ligament of right ankle. - Condition is Stable. - Discharge Instructions: Elastic Bandage and RICE, Ankle Sprain. - Medication Reconciliation, Local Pharmacy Hours form. - Follow up: Private Physician; When: Call to arrange an appointment; Reason: Recheck today's complaints, Continuance of care. - Problem is new. - Symptoms are unchanged. Historical: - Allergies: no known allergies; - Home Meds: 1. metformin 500 mg Oral Tb24 1 tab three times a day 2. NR insulin sliding scale three times a day 3. omeprazole 20 mg Oral cpDR 1 cap 2 times per day 4. Toujeo SoloStar 300 unit/mL (1.5 mL) subcutaneous inpn 26 unit nightly 5. Vitamin D Oral 20752 unit weekly - PMHx: GERD; right knee pain; Type 2 Diabetes on Insulin with poor control; Arthritis; - PSHx: Knee surgery- Right; R hand; - Social history: Smoking status: Patient states was never smoker of tobacco. No barriers to communication noted, The patient speaks fluent Congolese. - Family history: Not pertinent. - : The pt / caregiver states he / she is not on anticoagulants. Home medication list is obtained from the patient. - Exposure Risk Screening:: None identified. Vital Signs: 06/27 23:19 BP 149 / 84; Pulse 99; Resp 18 S; Temp 97.5(O); Pulse Ox 97% on R/A; Weight 104.78 kg / gr2 231 lbs (R); Height 5 ft. 9 in. (175.26 cm) (R); Pain 5/10; 06/28 00:41 BP 139 / 89; Pulse 105; Resp 18; Temp 97.8; Pulse Ox 99% ; ajs 06/27 23:19 Body Mass Index 34.11 (104.78 kg, 175.26 cm) gr2 MDM: 06/27 23:29 Ankle, Complete Ordered. EDMS 06/28 00:29 Ivan Wrap ordered. mo1 Signatures: Dispatcher [employer] [place] Seth Jaeger PA PA mo1 Alejandra BuschRN RN ms18 Luma Busch RN RN kas2 MTDD
--- NOTE | 2016-06-28 00:48 | EDDOCDS ---
Nurse's Notes [facility] Name: Elena Morejon Age: 21 yrs Sex: Female : 1995 Arrival Date: 06/27/2016 Time: 23:17 Bed I1 / M1 Private MD: NO PRIMARY PHYSICIAN, . Diagnosis: Sprain of unspecified ligament of right ankle Presentation: 06/27 23:23 Presenting complaint: Patient states: that her boyfriend accidentally sat on her R ms18 ankle and heard a "popping" sound. The patients lower extremity appears normal on examination. Adult Sepsis Screening: The patient does not have new or worsening altered mentation. Patient's respiratory rate is less than 22. Systolic blood pressure is greater than 100. Patient has a qSOFA score of 0- Negative Sepsis Screen. Suicide/Homicide risk assessment- the patient denies having any suicidal and/or homicidal ideations and does not present with any other emotional, behavioral or mental health complaints. Status: Patient is not a human services instructor or dependent. Transition of care: patient was not received from another setting of care. 23:23 Acuity: SILVIA Level 4 ms18 23:23 Method Of Arrival: Walkin/Carried/Asstd ms18 Triage Assessment: 23:26 General: Appears in no apparent distress, comfortable, Behavior is appropriate for age, ms18 cooperative. Pain: Location: right lateral malleolus Pain currently is 5 out of 10 on a pain scale. HIV screening NA for this visit Offered previously. Neurological: No deficits noted. Musculoskeletal: Capillary refill < 3 seconds Range of motion intact in all extremities. No deformity noted Reports pain in right lateral malleolus. Historical: - Allergies: no known allergies; - Home Meds: 1. metformin 500 mg Oral Tb24 1 tab three times a day 2. NR insulin sliding scale three times a day 3. omeprazole 20 mg Oral cpDR 1 cap 2 times per day 4. Toujeo SoloStar 300 unit/mL (1.5 mL) subcutaneous inpn 26 unit nightly 5. Vitamin D Oral 22357 unit weekly - PMHx: GERD; right knee pain; Type 2 Diabetes on Insulin with poor control; Arthritis; - PSHx: Knee surgery- Right; R hand; - Social history: Smoking status: Patient states was never smoker of tobacco. No barriers to communication noted, The patient speaks fluent Lao. - Family history: Not pertinent. - : The pt / caregiver states he / she is not on anticoagulants. Home medication list is obtained from the patient. - Exposure Risk Screening:: None identified. Screenin/22 00:46 Screening information is obtained from the patient. Fall risk: No risks identified. kas2 Assistance ADL's: requires no assistance with activities of daily living. Abuse/DV Screen: The patient / caregiver reports he/she is: not in a situation that causes fear, pain or injury. Nutritional screening: No deficits noted. Advance Directives: Currently, there is no health care proxy. There is no active DNR order. There is no living will. There is no Power of Environmental Field Office Manager. home support is adequate. Assessment: 00:45 General: Appears in no apparent distress, uncomfortable, well nourished, well groomed, kas2 Behavior is appropriate for age, cooperative. Pain: Location: right foot and right lateral malleolus Pain currently is 5 out of 10 on a pain scale. Neurological: Level of Consciousness is awake, alert, Oriented to person, place, time. Cardiovascular: Rhythm is regular. Respiratory: Airway is patent Respiratory effort is even, unlabored, Respiratory pattern is regular, symmetrical, Breath sounds are clear bilaterally. Derm: Skin is intact, Skin is dry, Skin is pink, warm & dry. Skin temperature is warm. Musculoskeletal: Circulation, motion, and sensation intact Capillary refill < 3 seconds Range of motion limited in right foot Swelling absent. 00:47 Musculoskeletal: Signs and Symptoms of Compartment Syndrome: no signs of compartment kas2 syndrome. Vital Signs: 06/27 23:19 BP 149 / 84; Pulse 99; Resp 18 S; Temp 97.5(O); Pulse Ox 97% on R/A; Weight 104.78 kg gr2 (R); Height 5 ft. 9 in. (175.26 cm) (R); Pain 5/10; 06/28 00:41 BP 139 / 89; Pulse 105; Resp 18; Temp 97.8; Pulse Ox 99% ; ajs 06/27 23:19 Body Mass Index 34.11 (104.78 kg, 175.26 cm) gr2 Vitals: 06/27 23:19 Log In Time: June 27, 2016 at 23:19. gr2 ED Course: 23:19 Patient visited by Jazmín Lane. gr2 23:19 NO PRIMARY PHYSICIAN, . is Private Physician. gr2 23:19 Patient moved to Waiting gr2 23:20 Patient visited by Jazmín Lane. gr2 23:20 Patient moved to Pre RCE gr2 23:25 Triage Initiated ms18 23:34 Patient moved to Triage 3 af2 23:59 Seth Jaeger PA is PHCP. mo1 23:59 Wong Bronson MD is Attending Physician. mo1 02 00:11 Patient moved to Radiology temo 00:13 Patient visited by Seth Jaeger PA. mo1 00:14 Patient moved to I1 / M1 af2 00:16 Patient moved to Radiology temo 00:17 Patient moved to I1 / M1 temo 00:41 Patient visited by Sol Huerta. ajs 00:47 The patient / caregiver is instructed regarding the plan of care and ED course. kas2 00:47 No IV's were initiated during this patient's visit. No procedures done that require kas2 assistance. Order Results: There are currently no results for this order. Outcome: 00:30 Discharge ordered by Provider. mo1 00:46 Discharge Assessment: patient administered narcotics - no. The following High Risk kas2 Discharge criteria are identified: None. Discharged to home ambulatory. Condition: good Condition: stable Condition: improved. No special radiology studies were completed. Property :Personal belongings accompany Pt. 00:47 Patient left the ED. kas2 Signatures: Maury Alejo Amanda [facility] Jazmín Lane gr2 Seth Jaeger PA PA mo1 Alejandra Busch RN RN ms18 Tram Goldstein RN RN af2 Luma Busch RN RN kas2 MTDD
--- NOTE | 2016-06-28 07:47 | REP ---
Clinical: Trauma . Technique: AP, lateral, bilateral oblique views right ankle . Findings: No acute fracture or dislocation. Skeletal structures and joint spaces are intact and normal. Ankle mortise appears stable. No subcutaneous emphysema or radiodense foreign body. Impression: Normal right ankle radiograph series. Signed by Flavio Fiore MD 06/28/2016 07:39 A
--- NOTE | 2016-06-30 01:48 | EDDOCDS ---
Nurse's Notes [facility] Name: Elena Morejon Age: 21 yrs Sex: Female : 1995 Arrival Date: 06/27/2016 Time: 23:17 Bed I1 / M1 Private MD: NO PRIMARY PHYSICIAN, . Diagnosis: Sprain of unspecified ligament of right ankle Presentation: 06/27 23:23 Presenting complaint: Patient states: that her boyfriend accidentally sat on her R ms18 ankle and heard a "popping" sound. The patients lower extremity appears normal on examination. Adult Sepsis Screening: The patient does not have new or worsening altered mentation. Patient's respiratory rate is less than 22. Systolic blood pressure is greater than 100. Patient has a qSOFA score of 0- Negative Sepsis Screen. Suicide/Homicide risk assessment- the patient denies having any suicidal and/or homicidal ideations and does not present with any other emotional, behavioral or mental health complaints. Status: Patient is not a line servicer or dependent. Transition of care: patient was not received from another setting of care. 23:23 Acuity: SILVIA Level 4 ms18 23:23 Method Of Arrival: Walkin/Carried/Asstd ms18 Triage Assessment: 23:26 General: Appears in no apparent distress, comfortable, Behavior is appropriate for age, ms18 cooperative. Pain: Location: right lateral malleolus Pain currently is 5 out of 10 on a pain scale. HIV screening NA for this visit Offered previously. Neurological: No deficits noted. Musculoskeletal: Capillary refill < 3 seconds Range of motion intact in all extremities. No deformity noted Reports pain in right lateral malleolus. Historical: - Allergies: no known allergies; - Home Meds: 1. metformin 500 mg Oral Tb24 1 tab three times a day 2. NR insulin sliding scale three times a day 3. omeprazole 20 mg Oral cpDR 1 cap 2 times per day 4. Toujeo SoloStar 300 unit/mL (1.5 mL) subcutaneous inpn 26 unit nightly 5. Vitamin D Oral 99692 unit weekly - PMHx: GERD; right knee pain; Type 2 Diabetes on Insulin with poor control; Arthritis; - PSHx: Knee surgery- Right; R hand; - Social history: Smoking status: Patient states was never smoker of tobacco. No barriers to communication noted, The patient speaks fluent North Korean. - Family history: Not pertinent. - : The pt / caregiver states he / she is not on anticoagulants. Home medication list is obtained from the patient. - Exposure Risk Screening:: None identified. Screenin/22 00:46 Screening information is obtained from the patient. Fall risk: No risks identified. kas2 Assistance ADL's: requires no assistance with activities of daily living. Abuse/DV Screen: The patient / caregiver reports he/she is: not in a situation that causes fear, pain or injury. Nutritional screening: No deficits noted. Advance Directives: Currently, there is no health care proxy. There is no active DNR order. There is no living will. There is no Power of Charge Manager. home support is adequate. Assessment: 00:45 General: Appears in no apparent distress, uncomfortable, well nourished, well groomed, kas2 Behavior is appropriate for age, cooperative. Pain: Location: right foot and right lateral malleolus Pain currently is 5 out of 10 on a pain scale. Neurological: Level of Consciousness is awake, alert, Oriented to person, place, time. Cardiovascular: Rhythm is regular. Respiratory: Airway is patent Respiratory effort is even, unlabored, Respiratory pattern is regular, symmetrical, Breath sounds are clear bilaterally. Derm: Skin is intact, Skin is dry, Skin is pink, warm & dry. Skin temperature is warm. Musculoskeletal: Circulation, motion, and sensation intact Capillary refill < 3 seconds Range of motion limited in right foot Swelling absent. 00:47 Musculoskeletal: Signs and Symptoms of Compartment Syndrome: no signs of compartment kas2 syndrome. Vital Signs: 06/27 23:19 BP 149 / 84; Pulse 99; Resp 18 S; Temp 97.5(O); Pulse Ox 97% on R/A; Weight 104.78 kg gr2 (R); Height 5 ft. 9 in. (175.26 cm) (R); Pain 5/10; 06/28 00:41 BP 139 / 89; Pulse 105; Resp 18; Temp 97.8; Pulse Ox 99% ; ajs 06/27 23:19 Body Mass Index 34.11 (104.78 kg, 175.26 cm) gr2 Vitals: 06/27 23:19 Log In Time: June 27, 2016 at 23:19. gr2 ED Course: 23:19 Patient visited by Jazmín Lane. gr2 23:19 NO PRIMARY PHYSICIAN, . is Private Physician. gr2 23:19 Patient moved to Waiting gr2 23:20 Patient visited by Jazmín Lane. gr2 23:20 Patient moved to Pre RCE gr2 23:25 Triage Initiated ms18 23:34 Patient moved to Triage 3 af2 23:59 Seth Jaeger PA is PHCP. mo1 23:59 Wong Bronson MD is Attending Physician. mo1 0222 00:11 Patient moved to Radiology temo 00:13 Patient visited by Seth Jaeger PA. mo1 00:14 Patient moved to I1 / M1 af2 00:16 Patient moved to Radiology temo 00:17 Patient moved to I1 / M1 temo 00:41 Patient visited by Sol Huerta. ajs 00:47 The patient / caregiver is instructed regarding the plan of care and ED course. kas2 00:47 No IV's were initiated during this patient's visit. No procedures done that require kas2 assistance. 04:11 [facility] Payment Agreement was scanned into [employer] and attached to record. hs2 08:03 Ankle, Complete Returned. EDMS 12:19 T-Sheet-- Draft Copy was scanned into [employer]n and attached to record. gb Order Results: Radiology Order: Ankle, Complete Test: Ankle, Complete REASON FOR EXAMINATION: Trauma; Clinical: Trauma .; ; Technique: AP, lateral, bilateral oblique views right ankle .; ; Findings: No acute fracture or dislocation. Skeletal structures and joint; spaces are intact and normal. Ankle mortise appears stable. No subcutaneous; emphysema or radiodense foreign body.; ; Impression:; Normal right ankle radiograph series.; ; ; Signed by; Flavio Fiore MD 06/28/2016 07:39 A; Outcome: 00:30 Discharge ordered by Provider. mo1 00:46 Discharge Assessment: patient administered narcotics - no. The following High Risk kas2 Discharge criteria are identified: None. Discharged to home ambulatory. Condition: good Condition: stable Condition: improved. No special radiology studies were completed. Property :Personal belongings accompany Pt. 00:47 Patient left the ED. kas2 Signatures: Dispatcher [employer] EDMS Maury Alejo temo Brenda Apodaca, Reg Reg gb Sol Huerta Gainslee gr2 Seth Jaeger PA PA [email or web address] Alejandra Busch,RN RN ms18 Tram Goldstein RN RN af2 Suni Ingram, [facility] hs2 Luma Busch,RN RN kas2 Chart Complete MTDD
--- NOTE | 2016-06-30 01:48 | EDDOCDS ---
Physician Documentation [facility] Name: Elena Morejon Age: 21 yrs Sex: Female : 1995 Arrival Date: 06/27/2016 Time: 23:17 Bed I1 / M1 Private MD: NO PRIMARY PHYSICIAN, . Disposition: 06/28/16 00:30 Discharged to Home/Self Care. Impression: Sprain of unspecified ligament of right ankle. - Condition is Stable. - Discharge Instructions: Elastic Bandage and RICE, Ankle Sprain. - Medication Reconciliation, Local Pharmacy Hours form. - Follow up: Private Physician; When: Call to arrange an appointment; Reason: Recheck today's complaints, Continuance of care. - Problem is new. - Symptoms are unchanged. Historical: - Allergies: no known allergies; - Home Meds: 1. metformin 500 mg Oral Tb24 1 tab three times a day 2. NR insulin sliding scale three times a day 3. omeprazole 20 mg Oral cpDR 1 cap 2 times per day 4. Toujeo SoloStar 300 unit/mL (1.5 mL) subcutaneous inpn 26 unit nightly 5. Vitamin D Oral 71624 unit weekly - PMHx: GERD; right knee pain; Type 2 Diabetes on Insulin with poor control; Arthritis; - PSHx: Knee surgery- Right; R hand; - Social history: Smoking status: Patient states was never smoker of tobacco. No barriers to communication noted, The patient speaks fluent Fijian. - Family history: Not pertinent. - : The pt / caregiver states he / she is not on anticoagulants. Home medication list is obtained from the patient. - Exposure Risk Screening:: None identified. Vital Signs: 06/27 23:19 BP 149 / 84; Pulse 99; Resp 18 S; Temp 97.5(O); Pulse Ox 97% on R/A; Weight 104.78 kg / gr2 231 lbs (R); Height 5 ft. 9 in. (175.26 cm) (R); Pain 5/10; 06/28 00:41 BP 139 / 89; Pulse 105; Resp 18; Temp 97.8; Pulse Ox 99% ; ajs 06/27 23:19 Body Mass Index 34.11 (104.78 kg, 175.26 cm) gr2 MDM: 06/27 23:29 Ankle, Complete Ordered. EDMS 06/28 00:29 Ivan Wrap ordered. mo1 04:11 [facility] Payment Agreement was scanned into [employer] and attached to record. hs2 12:19 T-Sheet-- Draft Copy was scanned into [employer] and attached to record. gb Signatures: Dispatcher [employer] EDMS Brenda Apodaca, Reg Reg gb Seth Jaeger PA PA mo1 Alejandra Busch RN RN ms18 Suni Ingram, Reg Reg hs2 Luma Busch RN RN kas2 The chart was reviewed and I authenticate all verbal orders and agree with the evaluation and treatment provided.Attachments: 04:11 [facility] Payment Agreement hs2 12:19 T-Sheet-- Draft Copy gb Chart Complete MTDD
--- NOTE | 2016-06-30 01:48 | EDDOCDS ---
Physician Documentation [facility] Name: Elena Morejon Age: 21 yrs Sex: Female : 1995 Arrival Date: 06/27/2016 Time: 23:17 Bed I1 / M1 Private MD: NO PRIMARY PHYSICIAN, . Disposition: 06/28/16 00:30 Discharged to Home/Self Care. Impression: Sprain of unspecified ligament of right ankle. - Condition is Stable. - Discharge Instructions: Elastic Bandage and RICE, Ankle Sprain. - Medication Reconciliation, Local Pharmacy Hours form. - Follow up: Private Physician; When: Call to arrange an appointment; Reason: Recheck today's complaints, Continuance of care. - Problem is new. - Symptoms are unchanged. Historical: - Allergies: no known allergies; - Home Meds: 1. metformin 500 mg Oral Tb24 1 tab three times a day 2. NR insulin sliding scale three times a day 3. omeprazole 20 mg Oral cpDR 1 cap 2 times per day 4. Toujeo SoloStar 300 unit/mL (1.5 mL) subcutaneous inpn 26 unit nightly 5. Vitamin D Oral 38279 unit weekly - PMHx: GERD; right knee pain; Type 2 Diabetes on Insulin with poor control; Arthritis; - PSHx: Knee surgery- Right; R hand; - Social history: Smoking status: Patient states was never smoker of tobacco. No barriers to communication noted, The patient speaks fluent Eritrean. - Family history: Not pertinent. - : The pt / caregiver states he / she is not on anticoagulants. Home medication list is obtained from the patient. - Exposure Risk Screening:: None identified. Vital Signs: 06/27 23:19 BP 149 / 84; Pulse 99; Resp 18 S; Temp 97.5(O); Pulse Ox 97% on R/A; Weight 104.78 kg / gr2 231 lbs (R); Height 5 ft. 9 in. (175.26 cm) (R); Pain 5/10; 06/28 00:41 BP 139 / 89; Pulse 105; Resp 18; Temp 97.8; Pulse Ox 99% ; ajs 06/27 23:19 Body Mass Index 34.11 (104.78 kg, 175.26 cm) gr2 MDM: 06/27 23:29 Ankle, Complete Ordered. EDMS 06/28 00:29 Ivan Wrap ordered. mo1 04:11 [facility] Payment Agreement was scanned into MEDHOST and attached to record. hs2 12:19 T-Sheet-- Draft Copy was scanned into [employer] and attached to record. gb Signatures: Dispatcher [employer] EDMS Brenda Apodaca, Reg Reg gb Seth Jaeger PA PA mo1 Alejandra Busch RN RN ms18 Suni Ingram, Reg Reg hs2 Luma Busch RN RN kas2 The chart was reviewed and I authenticate all verbal orders and agree with the evaluation and treatment provided.Attachments: 04:11 [facility] Payment Agreement hs2 12:19 T-Sheet-- Draft Copy gb Chart Complete MTDD
== END 2016-06-28 00:47 | disposition home or self-care (01) ==
LOC: M ED 23:17
DX: S93.401A Sprain of unspecified ligament of right ankle, initial encounter (principal); W50.0XXA Accidental hit or strike by another person, initial encounter; Y92.018 Other place in single-family (private) house as the place of occurrence of the external cause; Y93.89 Activity, other specified; Y99.8 Other external cause status; E11.9 Type 2 diabetes mellitus without complications; K21.9 Gastro-esophageal reflux disease without esophagitis; M19.90 Unspecified osteoarthritis, unspecified site; Z79.899 Other long term (current) drug therapy; Z79.4 Long term (current) use of insulin; Z79.84 Long term (current) use of oral hypoglycemic drugs

== ENCOUNTER 2016-07-17 10:47 | Emergency (ER) | payer OTHER ==
[~2016-07-17] VITALS: Ht 175.3 cm; Wt 95.3 kg
[2016-07-17] MEDS ORDERED: TOUJ1.2I SC ×2 (11:46→13:36)
[2016-07-17] MEDS ORDERED: INSURSD SC ×2 (11:48→13:36)
[2016-07-17 13:34] VITALS: BP 146/98
[2016-07-17] MEDS ORDERED: METF500T PO (13:36)
[2016-07-17] MEDS ORDERED: ADVO31MI2 XX (13:38)
[2016-07-17] MEDS ORDERED: [UNRECOGNIZED DRUG - CODE] XX (13:40)
== END 2016-07-17 13:52 | disposition home or self-care (01) ==
LOC: M ED 13:02
DX: Z76.0 Encounter for issue of repeat prescription (principal); E10.9 Type 1 diabetes mellitus without complications; Z79.2 Long term (current) use of antibiotics; Z79.899 Other long term (current) drug therapy

== ENCOUNTER 2016-07-19 20:45 | Emergency (ER) | payer OTHER ==
[~2016-07-19] VITALS: Ht 177.8 cm; Wt 95.3 kg
[~2016-07-19 20:45] MED LIST changes: +ADVO31MI2 XX; +INSURSD SC; +TOUJ1.2I SC; +[UNRECOGNIZED DRUG - CODE] XX
[2016-07-19] MEDS ORDERED: HumuLIN R (REGULAR) INSULIN (NovoLIN R) **100U/ML** PER UNIT SC STA (22:47)
[2016-07-19] MEDS ORDERED: NS 1,000 ML IV ONE (23:00)
[2016-07-19] MEDS ORDERED: ACETAMINOPHEN 325 MG TAB PO ONE (23:00)
[2016-07-19 23:40] LABS: BASO % 0.5 % (0.0-1.0); EOS # 0.3 K/mm3 (0.0-0.50); EOS % 2.6 % (0.0-3.0); LARGE UNSTAINED CELL # 0.2 K/mm3 (0.0-0.4); LARGE UNSTAINED CELL % 1.4 % (0.0-4.0); LYMPH # 2.4 K/mm3 (1.5-6.5); LYMPH % 21.8 % (24.0-44.0); MEAN CORPUSCULAR HEMOGLOBIN 29.8 pg (27.0-33.0); MEAN CORPUSCULAR HGB CONC 34.5 g/dl (32.0-36.5); MEAN CORPUSCULAR VOLUME 86.4 fl (80.0-96.0); MONO # 0.4 K/mm3 (0.0-0.8); MONO % 3.9 % (0.0-5.0); NEUTROPHILS # 7.7 K/mm3 (1.8-7.7); NEUTROPHILS % 69.9 % (36.0-66.0); PLATELET COUNT, AUTOMATED 318 k/mm3 (150-450); RED CELL DISTRIBUTION WIDTH 12.1 % (11.5-14.5)
[2016-07-19 23:59] LABS: ANION GAP 9 MEQ/L (8-16); BLOOD UREA NITROGEN 10 MG/DL (7-18); CALCIUM LEVEL 9.6 MG/DL (8.5-10.1); CARBON DIOXIDE LEVEL 27 MEQ/L (21-32); CHLORIDE LEVEL 101 MEQ/L (98-107); CREATININE FOR GFR 0.71 MG/DL (0.55-1.02); GLUCOSE, FASTING 261 MG/DL (70-105); POTASSIUM SERUM 4.2 MEQ/L (3.5-5.1); SODIUM LEVEL 137 MEQ/L (136-145)
[2016-07-20] MEDS ORDERED: GLUC1TES2 VI (00:47)
[2016-07-20 01:03] VITALS: BP 149/73
== END 2016-07-20 01:04 | disposition home or self-care (01) ==
LOC: M ED 21:38
DX: E11.65 Type 2 diabetes mellitus with hyperglycemia (principal); Z76.0 Encounter for issue of repeat prescription; Z79.84 Long term (current) use of oral hypoglycemic drugs; Z79.4 Long term (current) use of insulin; Z79.899 Other long term (current) drug therapy; Z79.2 Long term (current) use of antibiotics

== ENCOUNTER → 2016-08-01 | Outpatient (CLI) | payer OTHER ==
[~2016-08-01] MED LIST changes: +GLUC1TES2 VI
[2016-08-01 09:47] LABS: MEAN CORPUSCULAR HGB CONC 34.1 g/dl (32.0-36.5); RED CELL DISTRIBUTION WIDTH 12.2 % (11.5-14.5); WHITE BLOOD COUNT 6.6 K/mm3 (4.0-10.0)
== END ==
LOC: M LAB 08:44
PROVIDERS: ATTEND Nurse Practitioner Family
DX: E55.9 Vitamin D deficiency, unspecified (principal); E11.9 Type 2 diabetes mellitus without complications; E66.9 Obesity, unspecified; Z68.39 Body mass index [BMI] 39.0-39.9, adult; Z13.220 Encounter for screening for lipoid disorders

== ENCOUNTER 2016-08-21 03:04 | Emergency (ER) | payer OTHER ==
[~2016-08-21] VITALS: Ht 177.8 cm; Wt 122.5 kg
[2016-08-21 05:32] VITALS: BP 138/79
--- NOTE | 2016-08-22 08:07 | REP ---
Clinical: Pain . Technique: AP, lateral views of the right ankle. Findings: No acute fracture or dislocation. Skeletal structures and joint spaces are intact and normal. Ankle mortise appears stable. No subcutaneous emphysema or radiodense foreign body. Impression: Normal right ankle radiograph series. Signed by Flavio Fiore MD 08/22/2016 07:58 A
== END 2016-08-21 05:42 | disposition home or self-care (01) ==
LOC: M ED 05:14
DX: S93.401A Sprain of unspecified ligament of right ankle, initial encounter (principal); X58.XXXA Exposure to other specified factors, initial encounter; Y92.410 Unspecified street and highway as the place of occurrence of the external cause; Y93.01 Activity, walking, marching and hiking; Y99.9 Unspecified external cause status

== ENCOUNTER → 2016-08-22 | Emergency (ER) | payer OTHER ==
[~2016-08-22] VITALS: Ht 177.8 cm; Wt 122.5 kg
[~2016-08-22] MED LIST changes: +ZOFR4TAB3 PO
[2016-08-22 20:03] VITALS: BP 137/85
== END | disposition left against medical advice (07) ==
LOC: M ED 20:41
DX: S69.91XA Unspecified injury of right wrist, hand and finger(s), initial encounter (principal); Z53.21 Procedure and treatment not carried out due to patient leaving prior to being seen by health care provider

== ENCOUNTER 2016-08-23 21:04 | Emergency (ER) | payer OTHER ==
[~2016-08-23] VITALS: Ht 177.8 cm; Wt 122.5 kg
[~2016-08-23 21:04] MED LIST changes: -ZOFR4TAB3 PO
[2016-08-23] MEDS ORDERED: TOUJ1.2I SC (21:09)
[2016-08-23 22:51] VITALS: BP 137/98
[2016-08-23] MEDS ORDERED: IBUPROFEN 600 MG TAB PO ONE (23:00)
== END 2016-08-23 22:53 | disposition home or self-care (01) ==
LOC: M ED 21:53
DX: S63.521A Sprain of radiocarpal joint of right wrist, initial encounter (principal); X58.XXXA Exposure to other specified factors, initial encounter; Y92.099 Unspecified place in other non-institutional residence as the place of occurrence of the external cause; Y93.89 Activity, other specified; Y99.9 Unspecified external cause status

== ENCOUNTER 2016-08-28 20:07 | Emergency (ER) | payer OTHER ==
[~2016-08-28] VITALS: Ht 177.8 cm; Wt 112.5 kg
[~2016-08-28 20:07] MED LIST changes: -ZOFR4TAB3 PO
[2016-08-28 20:27] VITALS: BP 136/90
[2016-08-28] MEDS ORDERED: ZOFR4TAB3 PO (21:57)
[2016-08-28] MEDS ORDERED: ONDANSETRON 4 MG ORAL DISINTEGRATING TAB (S0181) PO ONE (22:00)
== END 2016-08-28 22:04 | disposition home or self-care (01) ==
LOC: M ED 21:40
DX: R10.32 Left lower quadrant pain (principal); R11.0 Nausea; R19.7 Diarrhea, unspecified; E11.9 Type 2 diabetes mellitus without complications; Z79.84 Long term (current) use of oral hypoglycemic drugs; Z79.4 Long term (current) use of insulin; F17.210 Nicotine dependence, cigarettes, uncomplicated

== ENCOUNTER → 2016-08-28 | Outpatient (CLI) | payer OTHER ==
[~2016-08-28] MED LIST changes: +ZOFR4TAB3 PO
[2016-08-28 10:44] LABS: ALBUMIN 3.7 GM/DL (3.2-5.2); ALBUMIN/GLOBULIN RATIO 1.06 (1.00-1.93); ALKALINE PHOSPHATASE 64 U/L (45-117); ALT/SGPT 39 U/L (12-78); ANION GAP 8 MEQ/L (8-16); AST/SGOT 18 U/L (15-37); BILIRUBIN,TOTAL 0.6 MG/DL (0.2-1.0); BLOOD UREA NITROGEN 9 MG/DL (7-18); CALCIUM LEVEL 8.6 MG/DL (8.5-10.1); CARBON DIOXIDE LEVEL 27 MEQ/L (21-32); CHLORIDE LEVEL 100 MEQ/L (98-107); CREATININE FOR GFR 0.74 MG/DL (0.55-1.02); GLUCOSE, FASTING 253 MG/DL (70-105); POTASSIUM SERUM 4.6 MEQ/L (3.5-5.1); SODIUM LEVEL 135 MEQ/L (136-145); TOTAL PROTEIN 7.2 GM/DL (6.4-8.2)
== END ==
LOC: M LAB 08-27 13:58
PROVIDERS: ATTEND Nurse Practitioner Family
DX: E66.9 Obesity, unspecified (principal); E11.9 Type 2 diabetes mellitus without complications

== ENCOUNTER → 2016-09-13 | Outpatient (REF) | payer OTHER ==
[~2016-09-13] MED LIST changes: +ZOFR4TAB3 PO
[2016-09-13 17:31] LABS: MEAN CORPUSCULAR HEMOGLOBIN 30.6 pg (27.0-33.0); MEAN CORPUSCULAR HGB CONC 33.3 g/dl (32.0-36.5); MEAN CORPUSCULAR VOLUME 91.9 fl (80.0-96.0); RED CELL DISTRIBUTION WIDTH 11.9 % (11.5-14.5); WHITE BLOOD COUNT 12.7 K/mm3 (4.0-10.0)
[2016-09-13 19:43] LABS: FREE T4 0.96 NG/DL (0.78-1.33)
== END ==
LOC: M LAB REF 16:52
PROVIDERS: ATTEND Obstetrics & Gynecology
DX: O36.80X0 Pregnancy with inconclusive fetal viability, not applicable or unspecified (principal); Z3A.00 Weeks of gestation of pregnancy not specified

== ENCOUNTER 2016-09-26 19:51 | Emergency (ER) | payer OTHER ==
[~2016-09-26] VITALS: Ht 175.3 cm; Wt 106.1 kg
[2016-09-26 19:52] VITALS: BP 140/88
== END 2016-09-26 20:27 | disposition left against medical advice (07) ==
LOC: M ED 20:27
DX: Z53.29 Procedure and treatment not carried out because of patient's decision for other reasons (principal)

== ENCOUNTER → 2016-09-26 | Outpatient (REF) | payer OTHER | LOC: M LAB REF 17:10 | PROVIDERS: ATTEND Nurse Practitioner Family | DX: Z11.4 Encounter for screening for human immunodeficiency virus [HIV] (principal) ==

== ENCOUNTER → 2016-10-19 | Outpatient (REF) | payer OTHER | LOC: M LAB REF 16:50 | PROVIDERS: ATTEND Obstetrics & Gynecology | DX: Z34.81 Encounter for supervision of other normal pregnancy, first trimester (principal) ==

== ENCOUNTER → 2016-10-20 | Outpatient (REF) | payer OTHER | LOC: M LAB REF 09:58 | PROVIDERS: ATTEND Obstetrics & Gynecology | DX: O24.111 Pre-existing type 2 diabetes mellitus, in pregnancy, first trimester (principal); Z3A.00 Weeks of gestation of pregnancy not specified ==

== ENCOUNTER → 2016-12-21 | Outpatient (REF) | payer MEDICAID, OTHER ==
[~2016-12-21] MED LIST changes: +CLIN150C14 PO; -CLIN1CAP5 PO; +INSUN SC; +INSUR SC; +LABE10TAB PO; +LABE20TAB PO; +MACR100C43 PO; -METF500T PO; +METF500T13 PO; +NOVOINJ12 SC; +NOVOINJ5 SC; +PREN1PAK PO
== END ==
LOC: M LAB REF 17:36
PROVIDERS: ATTEND Obstetrics & Gynecology
DX: O09.893 Supervision of other high risk pregnancies, third trimester (principal); Z3A.00 Weeks of gestation of pregnancy not specified

== ENCOUNTER 2017-01-15 21:49 | Emergency (ER) | payer MEDICAID, OTHER ==
[~2017-01-15] VITALS: Ht 177.8 cm; Wt 109.3 kg
[~2017-01-15 21:49] MED LIST changes: -INSUN SC; -INSUR SC; -LABE10TAB PO; -LABE20TAB PO; -MACR100C43 PO; -NOVOINJ12 SC; -NOVOINJ5 SC; -PREN1PAK PO
[2017-01-15] MEDS ORDERED: PREN1PAK PO (22:18)
[2017-01-15] MEDS ORDERED: NS 1,000 ML IV ONE (23:00)
[2017-01-16 00:13] LABS: ANION GAP 9 MEQ/L (8-16); BLOOD UREA NITROGEN 6 MG/DL (7-18); CALCIUM LEVEL 8.9 MG/DL (8.5-10.1); CARBON DIOXIDE LEVEL 24 MEQ/L (21-32); CHLORIDE LEVEL 104 MEQ/L (98-107); CREATININE FOR GFR 0.61 MG/DL (0.55-1.02); GLUCOSE, FASTING 238 MG/DL (70-105); POTASSIUM SERUM 3.8 MEQ/L (3.5-5.1); SODIUM LEVEL 137 MEQ/L (136-145)
[2017-01-16] MEDS ORDERED: HumuLIN R (REGULAR) INSULIN (NovoLIN R) **100U/ML** PER UNIT IV ONE (00:30)
[2017-01-16 01:49] VITALS: BP 164/88
--- NOTE | 2017-01-16 06:04 | ECGEPIP ---
Stationary ECG Study [facility] - ED Test Date: 2017-01-15 Pat Name: JANINE CACERES Department: Room: - Gender: F Supervisor Lens Generating: CortesB: 1995 Requested By: JACKIE MAK Order Number: [id number] Reading MD: John Paul Wong Measurements Intervals [place] Rate: 94 P: 19 FL: 169 QRS: 37 QRSD: 96 T: 5 QT: 357 QTc: 448 Interpretive Statements SINUS RHYTHM NSTTW ABNORMALITIES Electronically Signed On 01-16-2017 6:03:34 EDT by John Paul Wong
[2017-03-03] MEDS ORDERED: NOVOINJ5 SC (14:02)
[2017-03-03] MEDS ORDERED: NOVOINJ12 SC (14:03)
[2017-03-03] MEDS ORDERED: MACR100C43 PO (14:06)
[2017-03-04] MEDS ORDERED: LABE20TAB PO (16:13)
[2017-03-04] MEDS ORDERED: INSUN SC ×2 (17:16)
[2017-03-04] MEDS ORDERED: INSUR SC (17:16)
[2017-03-04] MEDS ORDERED: LABE10TAB PO (17:16)
== END 2017-01-16 01:57 | disposition home or self-care (01) ==
LOC: M ED 21:49
DX: E11.65 Type 2 diabetes mellitus with hyperglycemia (principal); Z91.11 Patient's noncompliance with dietary regimen

== ENCOUNTER → 2017-03-22 | Outpatient (REF) | payer OTHER ==
[~2017-03-22] MED LIST changes: +ACET-683 PO; +INSUN SC; +INSUNSD SC; +INSUR SC; +LABE10TAB PO; +LABE20TAB PO; +MACR100C43 PO; +NOVOINJ12 SC; +NOVOINJ5 SC; +PREN1PAK PO
== END ==
LOC: M LAB REF 16:26
PROVIDERS: ATTEND Advanced Practice Midwife
DX: O24.113 Pre-existing type 2 diabetes mellitus, in pregnancy, third trimester (principal)

== ENCOUNTER 2017-03-26 12:14 | Inpatient (IN) | payer OTHER ==
[~2017-03-26] VITALS: Ht 175.3 cm; Wt 121.6 kg
[2017-03-26] VITALS (9 sets, daily range): BP systolic 110–142; BP diastolic 57–82
[~2017-03-26 12:14] MED LIST changes: -ACET-683 PO; -INSUNSD SC
[2017-03-26] MEDS ORDERED: NOVOINJ12 SC (12:54)
[2017-03-26] MEDS ORDERED: INSUNSD SC (12:54)
[2017-03-26] MEDS ORDERED: NOVOINJ5 SC ×3 (12:54)
[2017-03-26] MEDS ORDERED: ACET-683 PO (12:54)
[2017-03-26 14:15] LABS: MEAN CORPUSCULAR HEMOGLOBIN 29.1 pg (27.0-33.0); MEAN CORPUSCULAR HGB CONC 33.9 g/dl (32.0-36.5); MEAN CORPUSCULAR VOLUME 85.9 fl (80.0-96.0); PLATELET COUNT, AUTOMATED 283 10^3/uL (150-450); RED CELL DISTRIBUTION WIDTH 11.5 % (11.5-14.5); WHITE BLOOD COUNT 5.7 10^3/uL (4.0-10.0)
[2017-03-26 14:48] LABS: ALBUMIN 2.6 GM/DL (3.2-5.2); ALBUMIN/GLOBULIN RATIO 0.72 (1.00-1.93); ALKALINE PHOSPHATASE 104 U/L (45-117); ALT/SGPT 23 U/L (12-78); ANION GAP 10 MEQ/L (8-16); AST/SGOT 25 U/L (7-37); BILIRUBIN,TOTAL 0.3 MG/DL (0.2-1.0); BLOOD UREA NITROGEN 6 MG/DL (7-18); CARBON DIOXIDE LEVEL 21 MEQ/L (21-32); CHLORIDE LEVEL 106 MEQ/L (98-107); CREATININE FOR GFR 0.63 MG/DL (0.55-1.02); GLUCOSE, FASTING 140 MG/DL (70-105); POTASSIUM SERUM 4.3 MEQ/L (3.5-5.1); SODIUM LEVEL 137 MEQ/L (136-145); TOTAL PROTEIN 6.2 GM/DL (6.4-8.2); URIC ACID 5.1 MG/DL (2.6-6.0)
--- NOTE | 2017-03-26 14:52 | REP ---
OB ULTRASOUND: Real-time sonographic evaluation of the gravid uterus is performed. There is a single living intrauterine gestation. The estimated gestational age is reportedly 34 weeks with EDC 05/07/2017. Today's measurements indicate appropriate growth. Biometry and Growth: BPD 85 mm = 34 weeks 2 days, 54th percentile HC 314 mm = 35 weeks 2 days, 69th percentile AC 335 mm = 37 weeks 3 days, greater than 95th percentile FL 61 mm = 31 weeks 5 days, 15th percentile. HC/AC ratio 0.94 is at the lower limits of normal range 0.94 to 1.13. Estimated weight 2677 grams 74th percentile. The lateral ventricles and choroid plexus appear unremarkable. Four chamber emergency room heart is visualized as well as ventricular outflow tracts, with what appears to be thickening of the myocardium diffusely. There appears to be a very small pericardial effusion. The stomach, kidneys and bladder are visualized and are grossly unremarkable. heart rate: 136 beats per minute. position: Vertex. Placenta: Fundal and grade 2 with no previa or abruption. Amniotic fluid: Appears within normal limits with DYLAN 18.4 within normal range of 8.1 to 24.8. Biophysical profile score: 6 out of 8 with no points for breathing. S/D ratio: 4.2 is above normal range of 2.0 to 3.0. RI: 0.76 is slightly above normal range of 0.59 to 0.75. Signed by Chance Medina MD 03/26/2017 04:09 P
[2017-03-26] MEDS: LR 1,000 ML IV SCH ×2 (15:51→21:59)
[2017-03-26] MEDS ORDERED: HumuLIN N INSULIN (NovoLIN N) PER UNIT SC ONE ×2 (17:15→21:00)
[2017-03-26] MEDS ORDERED: HumuLIN R (REGULAR) INSULIN (NovoLIN R) **100U/ML** PER UNIT SC SCH (17:30)
[2017-03-26] MEDS: BETAMETHASONE SOLUSPAN 6MG/ML INJ 5ML (J0702) IM SCH (19:52)
[2017-03-26] MEDS: LABETALOL 200 MG TAB PO SCH (20:45)
[2017-03-27] VITALS (21 sets, daily range): BP systolic 108–155; BP diastolic 57–91
[2017-03-27] MEDS: LR 1,000 ML IV SCH (06:15)
[2017-03-27 07:12] LABS: ALBUMIN 2.3 GM/DL (3.2-5.2); ALBUMIN/GLOBULIN RATIO 0.58 (1.00-1.93); ALKALINE PHOSPHATASE 96 U/L (45-117); ALT/SGPT 26 U/L (12-78); ANION GAP 9 MEQ/L (8-16); AST/SGOT 26 U/L (7-37); BILIRUBIN,TOTAL 0.4 MG/DL (0.2-1.0); BLOOD UREA NITROGEN 6 MG/DL (7-18); CARBON DIOXIDE LEVEL 22 MEQ/L (21-32); CHLORIDE LEVEL 105 MEQ/L (98-107); CREATININE FOR GFR 0.57 MG/DL (0.55-1.02); GLUCOSE, FASTING 176 MG/DL (70-105); SODIUM LEVEL 136 MEQ/L (136-145); TOTAL PROTEIN 6.3 GM/DL (6.4-8.2)
[2017-03-27] MEDS ORDERED: HumuLIN N INSULIN (NovoLIN N) PER UNIT SC SCH ×3 (07:30→21:00)
[2017-03-27] MEDS ORDERED: HumuLIN R (REGULAR) INSULIN (NovoLIN R) **100U/ML** PER UNIT SC SCH ×4 (07:30→17:39)
--- NOTE | 2017-03-27 08:16 | HPE ---
DATE OF ADMISSION: 03/26/2017 Elena is a 21-year-old female 3, para 0-0-2-0 with an EDC of 05/24/2017, EGA 34-1/7 weeks gestation who presented to the office for routine NST. Upon evaluation of the NST she had two spontaneous deceleration with a couple of late deceleration. At this point given her history of chronic hypertension and type 2 diabetes, a decision was made to send the patient to labor and delivery for further monitoring and an ultrasound. Her tracing was reviewed. It did recover nicely with heart rate in the 140s to 150s with good acceleration. Her record reviewed. She is a type 2 diabetic, poorly controlled. She is currently on insulin. Her last hemoglobin A1c was 9.5. Her previous one was 7.5. The patient does have a history of asthma, currently controlled on as needed albuterol. She has a history of depression, anxiety. Her record reviewed. Blood type is O+, rubella immune, hepatitis negative, HIV negative, GC chlamydia negative. Her last 24-hour urine collection shows total protein of 209. Her GBS status is unknown. PAST MEDICAL HISTORY: Significant for: Type 2 diabetes. Chronic hypertension, currently on labetalol. Asthma on as needed albuterol. Anxiety/depression. SOCIAL HISTORY: She lives with family friends which she calls as her adopted family. She denies any alcohol or drug use. REVIEW OF SYSTEMS: Unremarkable. MEDICATIONS: - labetalol - albuterol - insulin ALLERGIES: No known drug allergies. PHYSICAL EXAMINATION: Obese female in no acute distress. Abdomen: Soft, nontender, nondistended. Tracing reviewed while on labor and delivery. Reactive tracing with no further deceleration. Vaginal exam done in the office, closed, thick and posterior with a floating vertex. ASSESSMENT: 1. Intrauterine at 34 weeks gestation with spontaneous deceleration nor reassuring tracing. 2. Type 2 diabetic, poorly controlled on insulin. 3. Chronic hypertension, currently on labetalol. 4. History of asthma. 5. Anxiety and depression. PLAN: The patient will be admitted to labor and delivery for observation and further monitoring. Labs sent. Biophysical profile ordered. Continuous monitoring for now. The patient will be re-evaluated. If further spontaneous deceleration, we will consider steroid for lung maturity as delivery might be eminent. The patient counseled extensively given her poorly controlled diabetes, the risks of steroid also discussed. Will hold off steroid at this point unless there is further deceleration. She will be given insulin while in labor and delivery as well as her labetalol. Risk associated with delivery at this point also discussed and the possibility for section also discussed.
[2017-03-27] MEDS: LABETALOL 200 MG TAB PO SCH ×2 (08:46→21:03)
[2017-03-27] MEDS ORDERED: HumuLIN R (REGULAR) INSULIN (NovoLIN R) **100U/ML** PER UNIT SC ONE ×2 (11:30→16:00)
[2017-03-27] MEDS: BETAMETHASONE SOLUSPAN 6MG/ML INJ 5ML (J0702) IM SCH (19:52)
[2017-03-28] VITALS (9 sets, daily range): BP systolic 118–141; BP diastolic 57–79
[2017-03-28] MEDS ORDERED: AZITHROMYCIN INJ 500 MG, VIAL MATE ADAPTER 1 EACH in D5W 250 ML IV STA (06:49)
[2017-03-28] MEDS ORDERED: BICITRA 30ML SOLN UDC PO ONE (07:00)
[2017-03-28 07:01] LABS: BASO % 0.1 % (0.0-1.0); IMMATURE GRANULOCYTE % 0.7 % (0-0); LYMPH # 0.7 10^3/uL (1.5-6.5); LYMPH % 10.4 % (24.0-44.0); MEAN CORPUSCULAR HEMOGLOBIN 29.3 pg (27.0-33.0); MEAN CORPUSCULAR HGB CONC 32.8 g/dl (32.0-36.5); MEAN CORPUSCULAR VOLUME 89.4 fl (80.0-96.0); MONO # 0.5 10^3/uL (0.0-0.8); MONO % 6.7 % (0.0-5.0); NEUTROPHILS # 5.7 10^3/uL (1.8-7.7); NEUTROPHILS % 82.1 % (36.0-66.0); PLATELET COUNT, AUTOMATED 284 10^3/uL (150-450); RED CELL DISTRIBUTION WIDTH 11.8 % (11.5-14.5); WHITE BLOOD COUNT 6.9 10^3/uL (4.0-10.0)
[2017-03-28 07:11] LABS: ALT/SGPT 31 U/L (12-78); AST/SGOT 28 U/L (7-37); BILIRUBIN,TOTAL 0.3 MG/DL (0.2-1.0); CREATININE FOR GFR 0.62 MG/DL (0.55-1.02); URIC ACID 6.3 MG/DL (2.6-6.0)
[2017-03-28] MEDS ORDERED: HumuLIN R (REGULAR) INSULIN (NovoLIN R) **100U/ML** PER UNIT SC ONE (07:15)
[2017-03-28] MEDS ORDERED: KETOROLAC 60 MG/2 ML VIAL (J1885) As Ordered ONE (08:05)
[2017-03-28] MEDS ORDERED: ePHEDrine SULFATE 25 MG/5 ML(5MG/ML) SYRINGE As Ordered ONE (08:05)
[2017-03-28] MEDS ORDERED: OXYTOCIN INJ 10 UNITS/ML VIAL (J2590) As Ordered ONE (08:05)
[2017-03-28] MEDS ORDERED: PHENYLephrine HCL 500 MCG/5 ML (100MCG/ML) SYRINGE (J2370) As Ordered ONE (08:05)
[2017-03-28] MEDS ORDERED: MORPHINE PRES-FREE INJ 10 MG/10 ML VIAL (J2274) As Ordered ONE (08:05)
[2017-03-28] MEDS ORDERED: dexameTHASONE 4 MG/ML 1ML VIAL (J1100) As Ordered ONE (08:05)
[2017-03-28] MEDS ORDERED: ONDANSETRON 4MG/2ML VIAL (J2405) As Ordered ONE (08:05)
[2017-03-28 08:33] LABS: CORD GAS ABE A -3.1; CORD GAS HCO3 A 26.9 MEQ/L; CORD GAS O2 SAT A 21.7 %; CORD GAS PCO2 A 72.3 mmHg; CORD GAS PH A 7.188 UNITS; CORD GAS PO2 A 14.6 mmHg; CORD GAS SBC A 20.1 MEQ/L; CORD GAS TCO2 A 29.1 MEQ/L
[2017-03-28 08:34] LABS: CORD GAS ABE V -1.2; CORD GAS HCO3 V 27.6 MEQ/L; CORD GAS O2 SAT V 39.8 %; CORD GAS PCO2 V 64.5 mmHg; CORD GAS PH V 7.249 UNITS; CORD GAS PO2 V 20.7 mmHg; CORD GAS SBC V 22.2 MEQ/L; CORD GAS TCO2 V 29.6 MEQ/L
[2017-03-28] MEDS ORDERED: ONDANSETRON 4MG/2ML VIAL (J2405) IV PRN ×2 (08:45→09:15)
[2017-03-28] MEDS ORDERED: RHOGAM 300 MCG (1500 IU) INJ (J2790) IM SCH (08:45)
[2017-03-28] MEDS ORDERED: NORCO, ANEXSIA 5/325MG TABLET (HYDROcodone/ACETAMINOPHEN) PO PRN (08:45)
[2017-03-28] MEDS ORDERED: MEASLES,MUMPS,RUBELLA VACCINE INJ (MMR-II) (90707) SC SCH (08:45)
[2017-03-28] MEDS ORDERED: DOCUSATE SODIUM 100 MG CAP PO PRN (08:45)
[2017-03-28] MEDS ORDERED: diphenhydrAMINE INJ 50MG/ML VIAL (J1200) IV PRN (09:15)
[2017-03-28] MEDS ORDERED: MORPHINE 2 MG/ML 1ML SYRINGE IV PRN (09:15)
[2017-03-28] MEDS ORDERED: LR 1,000 ML IV SCH (09:15)
[2017-03-28] MEDS ORDERED: NALBUPHINE HCL 10 MG/ML AMP (J2300) IV PRN (09:15)
[2017-03-28] MEDS ORDERED: fentaNYL 100 MCG/2 ML INJECTION (J3010) IV PRN (09:15)
[2017-03-28] MEDS ORDERED: DEXTROSE 50% 50 ML SYRINGE IV PRN (09:45)
[2017-03-28] MEDS ORDERED: GLUCAGON FOR INJ 1 MG VIAL (J1610) SC PRN ×2 (09:45→10:15)
[2017-03-28] MEDS ORDERED: GLUCOSE 4 GM CHEW TABLET PO PRN (10:15)
[2017-03-28] MEDS: HumaLOG INSULIN (NovoLOG) PER UNIT SC SCH ×7 (11:03→22:00)
[2017-03-28] MEDS: PRENATAL VITAMINS CHEWABLE TABLET PO SCH (12:46)
[2017-03-28] MEDS: LR 1,000 ML IV SCH ×2 (12:46→20:10)
[2017-03-28] MEDS: KETOROLAC 30 MG/ML VIAL (J1885) IV SCH ×2 (14:16→20:30)
--- NOTE | 2017-03-28 16:51 | RO ---
DATE OF PROCEDURE: 03/28/2017 Agnes is a 21-year-old female, 3, para 0-0-2-0, who is admitted at 40-1/7 weeks gestation after having spontaneous deceleration. She was monitored on labor and delivery, had two doses of steroid, continued to have deceleration with good recovery. Patient was remote from delivery and after extensive counseling with the patient a decision was made to proceed with delivery via primary section. PREOPERATIVE DIAGNOSES: 1. Intrauterine at 34-2/7 weeks gestation. 2. Nonreassuring heart rate tracing remote from delivery. 3. History of chronic hypertension and type 2 diabetes poorly controlled on insulin. POSTOPERATIVE DIAGNOSES: 1. Intrauterine at 34-2/7 weeks gestation. 2. Nonreassuring heart rate tracing remote from delivery. 3. History of chronic hypertension and type 2 diabetes poorly controlled on insulin. 4. Cannot rule out an abruption. PROCEDURE: Primary low transverse section. SURGEON: Isaac Koroma MD EDUCATIONAL AID: Jeimy Noriega ANESTHESIA: Spinal. COMPLICATIONS: None. ESTIMATED BLOOD LOSS: 500 mL. FINDINGS: Live female infant in occiput transverse position. 9/9. weight 6 pounds 10 ounces. Normal-appearing tube and ovaries. Questionable placental abruption noted. DESCRIPTION OF PROCEDURE: After obtaining informed consent, patient was taken to the operating room where spinal anesthetic was found to be adequate. She was then draped and prepped in usual sterile fashion in the supine position. At this point, a Pfannenstiel incision was made. This was carried down to the fascia. Fascia was incised in midline fashion and carried through laterally. Superior aspect of the fascia then grasped with Domingo clamps, tented off and dissected off the rectus muscles sharply. The inferior aspect was dissected off in similar fashion. Rectus muscles midline fashion. Perineum identified. Perineal cavity entered bluntly. Superior and inferior dissection of the peritoneum was then done with good visualization of the bladder. At this point, a Mobius skin retractor was placed. A low transverse uterine incision was made. Infant was delivered in atraumatic fashion. Nose and mouth bulb suctioned. Cord doubly clamped and cut. and infant was handed over to the waiting go go dancer. Cord blood and cord gas were sent. Placenta removed manually. Uterus cleared of all clot and debris and the uterine incision was then repaired in two separate layers of #0 Vicryl sutures. All superficial bleeder were coaculated Attention was then turned to the peritoneum, which was closed in a running fashion using #2-0 Vicryl. Fascia closed in two separate segment of #0 Vicryl sutures. The skin was reapproximated in subcuticular fashion using #3-0 Vicryl on a Timur. Steri-Strips placed. Patient tolerated procedure well. She was then transferred to recovery room in stable condition. JADE
[2017-03-29] MEDS: LR 1,000 ML IV SCH ×3 (00:09→16:43)
[2017-03-29] MEDS: HumaLOG INSULIN (NovoLOG) PER UNIT SC SCH ×10 (02:00→20:27)
[2017-03-29 02:14] VITALS: BP 126/64
[2017-03-29] MEDS: KETOROLAC 30 MG/ML VIAL (J1885) IV SCH ×2 (02:21→08:12)
[2017-03-29 06:19] VITALS: BP 132/69
[2017-03-29 07:12] LABS: MEAN CORPUSCULAR VOLUME 87.9 fl (80.0-96.0); PLATELET COUNT, AUTOMATED 240 10^3/uL (150-450); RED CELL DISTRIBUTION WIDTH 11.7 % (11.5-14.5); WHITE BLOOD COUNT 9.3 10^3/uL (4.0-10.0)
[2017-03-29] MEDS: PRENATAL VITAMINS CHEWABLE TABLET PO SCH (08:12)
[2017-03-29 10:28] VITALS: BP 123/64
[2017-03-29] MEDS: NORCO, ANEXSIA 5/325MG TABLET (HYDROcodone/ACETAMINOPHEN) PO PRN (13:25)
[2017-03-29 14:11] VITALS: BP 138/79
[2017-03-29 18:26] VITALS: BP 137/80
[2017-03-29 22:00] VITALS: BP 127/70
[2017-03-30] MEDS: NORCO, ANEXSIA 5/325MG TABLET (HYDROcodone/ACETAMINOPHEN) PO PRN (04:05)
[2017-03-30 06:14] VITALS: BP 135/81
[2017-03-30] MEDS: PRENATAL VITAMINS CHEWABLE TABLET PO SCH (07:25)
[2017-03-30] MEDS: HumaLOG INSULIN (NovoLOG) PER UNIT SC SCH ×4 (07:26→19:49)
[2017-03-30 18:30] VITALS: BP 143/89
[2017-03-31] MEDS: NORCO, ANEXSIA 5/325MG TABLET (HYDROcodone/ACETAMINOPHEN) PO PRN (01:38)
[2017-03-31 06:00] VITALS: BP 144/86
[2017-03-31] MEDS: HumaLOG INSULIN (NovoLOG) PER UNIT SC SCH ×3 (06:56→14:00)
[2017-03-31] MEDS: PRENATAL VITAMINS CHEWABLE TABLET PO SCH (09:09)
[2017-03-31] MEDS ORDERED: NORC1TAB4 PO ×2 (09:53→09:54)
[2017-03-31] MEDS ORDERED: GLUC1INJ11 SC (09:55)
== END 2017-03-31 14:30 | disposition home or self-care (01) | DRG 540 ==
LOC: M LDO 12:14 → M LDI 20:04 → M OBS 03-28 11:25
PROVIDERS: ADMIT Obstetrics & Gynecology; ATTEND Obstetrics & Gynecology
PROC: 10D00Z1 Extraction of Products of Conception, Low, Open Approach (ICD-10-PCS; principal; 2017-03-28 07:42)
DX: O76 Abnormality in fetal heart rate and rhythm complicating labor and delivery (principal); O24.12 Pre-existing type 2 diabetes mellitus, in childbirth; O10.02 Pre-existing essential hypertension complicating childbirth; Z3A.34 34 weeks gestation of pregnancy; Z79.4 Long term (current) use of insulin; Z37.0 Single live birth; E11.9 Type 2 diabetes mellitus without complications

== ENCOUNTER → 2017-05-10 | Outpatient (REF) | payer OTHER ==
[2017-05-10 18:59] LABS: ESTIMATED AVERAGE GLUCOSE 200 MG/DL (60-110); HEMOGLOBIN A1c 8.6 %
== END ==
LOC: M LAB REF 17:14
DX: E11.9 Type 2 diabetes mellitus without complications (principal)

== ENCOUNTER → 2017-08-27 | Outpatient (REF) | payer OTHER ==
[2017-08-27 15:25] LABS: ESTIMATED AVERAGE GLUCOSE 235 MG/DL (60-110); HEMOGLOBIN A1c 9.8 %
== END ==
LOC: M LAB REF 12:04
DX: E11.9 Type 2 diabetes mellitus without complications (principal)
CPT/HCPCS: 83036

== ENCOUNTER → 2017-12-05 | Outpatient (REF) | payer OTHER ==
[2017-12-05 18:04] LABS: ESTIMATED AVERAGE GLUCOSE 312 MG/DL (60-110); HEMOGLOBIN A1c 12.5 %
== END ==
LOC: M LAB REF 17:22
DX: E11.9 Type 2 diabetes mellitus without complications (principal)

== ENCOUNTER 2018-01-08 17:57 | Emergency (ER) | payer OTHER ==
[2018-01-08 19:08] LABS: BASO # 0.1 10^3/uL (0.0-0.2); BASO % 0.7 % (0.0-1.0); EOS # 0.7 10^3/uL (0.0-0.50); EOS % 8.3 % (0.0-3.0); HEMOGLOBIN 16.2 g/dl (12.0-15.5); IMMATURE GRANULOCYTE % 0.2 % (0-3.0); LYMPH # 2.2 10^3/uL (1.5-6.5); LYMPH % 25.4 % (24.0-44.0); MEAN CORPUSCULAR HEMOGLOBIN 28.7 pg (27.0-33.0); MEAN CORPUSCULAR HGB CONC 34.5 g/dl (32.0-36.5); MEAN CORPUSCULAR VOLUME 83.2 fl (80.0-96.0); MONO # 0.5 10^3/uL (0.0-0.8); MONO % 6.1 % (0.0-5.0); NEUTROPHILS # 5.2 10^3/uL (1.8-7.7); NEUTROPHILS % 59.3 % (36.0-66.0); PLATELET COUNT, AUTOMATED 328 10^3/uL (150-450); RED BLOOD COUNT 5.65 10^6/uL (4.00-5.40); RED CELL DISTRIBUTION WIDTH 11.8 % (11.5-14.5); WHITE BLOOD COUNT 8.8 10^3/uL (4.0-10.0)
[2018-01-08 19:14] LABS: ANION GAP 13 MEQ/L (8-16); BLOOD UREA NITROGEN 10 MG/DL (7-18); CALCIUM LEVEL 10.3 MG/DL (8.5-10.1); CARBON DIOXIDE LEVEL 22 MEQ/L (21-32); CHLORIDE LEVEL 100 MEQ/L (98-107); CREATININE FOR GFR 1.21 MG/DL (0.55-1.30); GLOMERULAR FILTRATION RATE 59.8 (>60); SODIUM LEVEL 135 MEQ/L (136-145)
[2018-01-08 19:33] LABS: GLUCOSE, FASTING 448 MG/DL (70-100)
[2018-01-08] MEDS: HumaLOG INSULIN (NovoLOG) PER UNIT SC (19:46)
[2018-01-08 20:21] LABS: BEDSIDE GLUCOSE 449 MG/DL (70-105)
== END 2018-01-08 20:24 | disposition home or self-care (01) ==
LOC: M ED 17:57
DX: T18.198A Other foreign object in esophagus causing other injury, initial encounter (principal); X58.XXXA Exposure to other specified factors, initial encounter; Y92.89 Other specified places as the place of occurrence of the external cause
CPT/HCPCS: 80048

== ENCOUNTER → 2018-05-28 | Outpatient (REF) | payer OTHER ==
[~2018-05-28] MED LIST changes: +ACET-683 PO; +GLUC1INJ11 SC; +INSUNSD SC; +NORC1TAB4 PO; +ZOFR4TAB14 PO; -ZOFR4TAB3 PO
[2018-05-28 15:59] LABS: FREE T4 1.09 NG/DL (0.76-1.46); THYROID STIMULATING HORMONE 0.835 uIU/ML (0.358-3.740)
[2018-05-28 16:07] LABS: ALBUMIN 4.2 GM/DL (3.2-5.2); ALT/SGPT 64 U/L (12-78); BILIRUBIN,TOTAL 0.7 MG/DL (0.2-1.0); BLOOD UREA NITROGEN 15 MG/DL (7-18); CARBON DIOXIDE LEVEL 24 MEQ/L (21-32); CHLORIDE LEVEL 98 MEQ/L (98-107); CREATININE FOR GFR 0.78 MG/DL (0.55-1.30); GLOMERULAR FILTRATION RATE > 60.0 (>60); GLUCOSE, FASTING 422 MG/DL (70-100); POTASSIUM SERUM 4.5 MEQ/L (3.5-5.1); SODIUM LEVEL 133 MEQ/L (136-145); TOTAL PROTEIN 8.2 GM/DL (6.4-8.2)
[2018-05-28 16:30] LABS: HEMOGLOBIN A1c 13.2 %
[2018-05-29 09:19] LABS: CREATININE, URINE 80.9 MG/DL; MAU/CREAT RATIO 226.2 MCG/MG (0.0-30.0)
== END ==
LOC: M SFHCPLAZ 13:40
PROVIDERS: ATTEND Nurse Practitioner Family
DX: Z86.39 Personal history of other endocrine, nutritional and metabolic disease (principal); E66.9 Obesity, unspecified

== ENCOUNTER → 2018-08-09 | Outpatient (REF) | payer OTHER ==
[~2018-08-09] MED LIST changes: -NORC1TAB4 PO; +NORC1TAB7 PO
[2018-08-09 16:42] LABS: ALBUMIN 4.5 GM/DL (3.2-5.2); ALT/SGPT 78 U/L (12-78); BILIRUBIN,TOTAL 0.6 MG/DL (0.2-1.0); BLOOD UREA NITROGEN 12 MG/DL (7-18); CALCIUM LEVEL 9.9 MG/DL (8.5-10.1); CARBON DIOXIDE LEVEL 26 MEQ/L (21-32); CHLORIDE LEVEL 99 MEQ/L (98-107); GLOMERULAR FILTRATION RATE > 60.0 (>60); GLUCOSE, FASTING 386 MG/DL (70-100); POTASSIUM SERUM 4.3 MEQ/L (3.5-5.1); SODIUM LEVEL 134 MEQ/L (136-145)
[2018-08-09 16:48] LABS: TOTAL 25(OH) VITAMIN D 31.5 NG/ML (30.0-100.0)
[2018-08-09 16:49] LABS: PTH INTACT 15.7 PG/ML (18.5-88.0)
== END ==
LOC: M SFHCPLAZ 14:49
PROVIDERS: ATTEND Physician Assistant Medical
DX: E11.65 Type 2 diabetes mellitus with hyperglycemia (principal); E55.9 Vitamin D deficiency, unspecified

== ENCOUNTER 2018-09-27 14:46 | Emergency (ER) | payer OTHER ==
[~2018-09-27] VITALS: Ht 177.8 cm; Wt 110.5 kg
[2018-09-27] MEDS ORDERED: BASA100I SQ (14:57)
[2018-09-27] MEDS ORDERED: MEDR150I10 (14:57)
[2018-09-27] MEDS ORDERED: METF500T13 PO (14:57)
[2018-09-27] MEDS ORDERED: VITA500045 PO (14:57)
[2018-09-27 15:47] LABS: BASO % 0.5 % (0.0-1.0); EOS # 0.5 10^3/uL (0.0-0.50); EOS % 5.8 % (0.0-3.0); HEMOGLOBIN 16.3 g/dl (12.0-15.5); LYMPH # 1.9 10^3/uL (1.5-6.5); LYMPH % 22.4 % (24.0-44.0); MEAN CORPUSCULAR HEMOGLOBIN 30.6 pg (27.0-33.0); MEAN CORPUSCULAR HGB CONC 35.4 g/dl (32.0-36.5); MEAN CORPUSCULAR VOLUME 86.3 fl (80.0-96.0); MONO # 0.6 10^3/uL (0.0-0.8); MONO % 7.4 % (0.0-5.0); NEUTROPHILS # 5.3 10^3/uL (1.8-7.7); NEUTROPHILS % 63.7 % (36.0-66.0); PLATELET COUNT, AUTOMATED 305 10^3/uL (150-450); RED BLOOD COUNT 5.33 10^6/uL (4.00-5.40); WHITE BLOOD COUNT 8.3 10^3/uL (4.0-10.0)
[2018-09-27] MEDS ORDERED: NS 1,000 ML IV ONE ×2 (16:00→16:30)
[2018-09-27 16:21] LABS: BLOOD UREA NITROGEN 7 MG/DL (7-18); CALCIUM LEVEL 9.4 MG/DL (8.5-10.1); CARBON DIOXIDE LEVEL 23 MEQ/L (21-32); CHLORIDE LEVEL 102 MEQ/L (98-107); CREATININE FOR GFR 0.86 MG/DL (0.55-1.30); GLOMERULAR FILTRATION RATE > 60.0 (>60); GLUCOSE, FASTING 462 MG/DL (70-100); POTASSIUM SERUM 4.1 MEQ/L (3.5-5.1); SODIUM LEVEL 135 MEQ/L (136-145)
[2018-09-27 16:23] LABS: HCG, SERUM QUALITATIVE NEGATIVE (NEGATIVE)
[2018-09-27] MEDS ORDERED: HumuLIN R (REGULAR) INSULIN (NovoLIN R) **100U/ML** PER UNIT IV ONE (16:30)
[2018-09-27 17:02] LABS: HEMOGLOBIN A1c 12.5 %
[2018-09-27 17:14] VITALS: BP 153/97
--- NOTE | 2018-09-27 17:32 | REP ---
Clinical: Vaginal bleeding . Technique: Transabdominal pelvic ultrasound followed by transvaginal examination for better evaluation of the endometrium and adnexa with color Doppler evaluation of the ovaries. Findings: Bladder is unremarkable and measures 8.8 x 10.6 x 5.7 cm . Heterogeneous anteverted uterus measures 9.0 x 3.8 x 4.7 cm. The endometrial complex measures 3.4 mm thickness excluding hemorrhagic debris/clot identified in the lower uterine segment. No discrete uterine abnormality identified. Bilateral ovaries are normal in appearance and vascularity without evidence for torsion. Right ovary measures 2.2 x 1.7 x 2.2 cm ; R I = 0.58 . Left ovary measures 0.1 x 2.0 x 2.8 cm with 2.2 cm dominant follicle ; R I = 0.60 . no pelvic free fluid . Impression: 1. Hemorrhagic debris noted in the endocervical canal. No discrete uterine abnormality identified. 2. Normal ovaries without torsion. Electronically Signed by Flavio Fiore MD 09/27/2018 05:24 P
[2018-09-27] MEDS ORDERED: metroNIDAZOLE (FLAGYL) 500 MG TAB PO ONE (17:45)
[2018-09-27 17:58] LABS: CHLAMYDIA DNA AMPLIFICATION NEGATIVE (NEGATIVE); GC DNA AMPLIFICATION NEGATIVE (NEGATIVE)
== END 2018-09-27 19:10 | disposition home or self-care (01) ==
LOC: M ED 14:46
DX: A59.00 Urogenital trichomoniasis, unspecified (principal); N93.9 Abnormal uterine and vaginal bleeding, unspecified; E11.65 Type 2 diabetes mellitus with hyperglycemia; J45.909 Unspecified asthma, uncomplicated; Z79.4 Long term (current) use of insulin; Z79.84 Long term (current) use of oral hypoglycemic drugs; Z87.891 Personal history of nicotine dependence; Z90.89 Acquired absence of other organs

== ENCOUNTER → 2018-10-16 | Outpatient (CLI) | payer OTHER ==
[~2018-10-16] MED LIST changes: +BASA100I SQ; +MEDR150I10; +VITA500045 PO
[2018-10-16 13:56] LABS: BASO % 0.7 % (0.0-1.0); EOS # 0.4 10^3/uL (0.0-0.50); EOS % 7.2 % (0.0-3.0); HEMATOCRIT 39.9 % (36.0-47.0); HEMOGLOBIN 13.7 g/dl (12.0-15.5); LYMPH # 1.6 10^3/uL (1.5-6.5); LYMPH % 29.2 % (24.0-44.0); MEAN CORPUSCULAR HEMOGLOBIN 29.5 pg (27.0-33.0); MEAN CORPUSCULAR HGB CONC 34.3 g/dl (32.0-36.5); MEAN CORPUSCULAR VOLUME 85.8 fl (80.0-96.0); MONO # 0.5 10^3/uL (0.0-0.8); MONO % 9.4 % (0.0-5.0); NEUTROPHILS % 53.1 % (36.0-66.0); PLATELET COUNT, AUTOMATED 369 10^3/uL (150-450); RED BLOOD COUNT 4.65 10^6/uL (4.00-5.40); WHITE BLOOD COUNT 5.6 10^3/uL (4.0-10.0)
[2018-10-16 14:18] LABS: HEMOGLOBIN A1c 13.3 %
[2018-10-16 14:25] LABS: CREATININE, URINE 28.5 MG/DL; MAU/CREAT RATIO 108.7 MCG/MG (0.0-30.0); TOTAL 25(OH) VITAMIN D 22.5 NG/ML (30.0-100.0)
== END ==
LOC: M LAB 13:13
PROVIDERS: ATTEND Physician Assistant Medical
DX: D75.89 Other specified diseases of blood and blood-forming organs (principal); E11.65 Type 2 diabetes mellitus with hyperglycemia; E55.9 Vitamin D deficiency, unspecified

== ENCOUNTER 2018-10-20 15:47 | Emergency (ER) | payer OTHER ==
[~2018-10-20] VITALS: Ht 177.8 cm; Wt 107.3 kg
[2018-10-20 16:50] VITALS: BP 157/91
== END 2018-10-20 16:52 | disposition home or self-care (01) ==
LOC: M ED 15:47
DX: S80.211A Abrasion, right knee, initial encounter (principal); S80.01XA Contusion of right knee, initial encounter; W22.8XXA Striking against or struck by other objects, initial encounter; Y92.099 Unspecified place in other non-institutional residence as the place of occurrence of the external cause; Y93.9 Activity, unspecified; Y99.9 Unspecified external cause status; E11.9 Type 2 diabetes mellitus without complications; F32.9 Major depressive disorder, single episode, unspecified; Z79.4 Long term (current) use of insulin; Z79.899 Other long term (current) drug therapy

== ENCOUNTER 2020-02-26 15:58 | Emergency (ER) | payer OTHER ==
[~2020-02-26] VITALS: Ht 175.3 cm; Wt 101.4 kg
[2020-02-26 15:59] VITALS: BP 134/86
[2020-02-26] MEDS ORDERED: PENI500T PO (16:35)
== END 2020-02-26 16:43 | disposition home or self-care (01) ==
LOC: M ED 15:58
DX: K04.7 Periapical abscess without sinus (principal); E11.9 Type 2 diabetes mellitus without complications; Z79.4 Long term (current) use of insulin

== ENCOUNTER 2020-04-11 07:14 | Emergency (ER) | payer OTHER ==
[~2020-04-11] VITALS: Ht 175.3 cm; Wt 100.5 kg
[~2020-04-11 07:14] MED LIST changes: +LABE100T4 PO; -LABE10TAB PO; +PENI500T PO
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
[2020-04-11] MEDS ORDERED: IBUP-1022 PO (09:10)
[2020-04-11] MEDS ORDERED: CYCL-707 PO (09:10)
[2020-04-11 09:20] VITALS: BP 142/93
== END 2020-04-11 09:25 | disposition home or self-care (01) ==
LOC: M ED 07:14
DX: S09.90XA Unspecified injury of head, initial encounter (principal); S13.4XXA Sprain of ligaments of cervical spine, initial encounter; V40.6XXA Car passenger injured in collision with pedestrian or animal in traffic accident, initial encounter; Y92.9 Unspecified place or not applicable; Y93.9 Activity, unspecified; Y99.9 Unspecified external cause status; E11.9 Type 2 diabetes mellitus without complications; Z79.4 Long term (current) use of insulin

== ENCOUNTER → 2020-06-25 | Outpatient (REF) | payer OTHER ==
[~2020-06-25] MED LIST changes: -CLIN150C14 PO; +CLIN150C15 PO; +CYCL-707 PO; +IBUP-1022 PO
[2020-06-25 17:48] LABS: BASO # 0.1 10^3/uL (0.0-0.2); BASO % 0.7 % (0.0-1.0); EOS # 0.4 10^3/uL (0.0-0.5); EOS % 4.9 % (0.0-3.0); HEMATOCRIT 46.3 % (36.0-47.0); LYMPH # 2.6 10^3/uL (1.5-5.0); LYMPH % 29.2 % (24.0-44.0); MEAN CORPUSCULAR HEMOGLOBIN 30.7 pg (27.0-33.0); MEAN CORPUSCULAR HGB CONC 34.6 g/dl (32.0-36.5); MEAN CORPUSCULAR VOLUME 88.9 fl (80.0-96.0); MONO # 0.7 10^3/uL (0.0-0.8); MONO % 7.4 % (2.0-8.0); NEUTROPHILS # 5.2 10^3/uL (1.5-8.5); NEUTROPHILS % 57.5 % (36.0-66.0); PLATELET COUNT, AUTOMATED 350 10^3/uL (150-450); RED BLOOD COUNT 5.21 10^6/uL (4.00-5.40)
[2020-06-25 18:03] LABS: HEMOGLOBIN A1c 12.3 %
[2020-06-25 18:27] LABS: CREATININE, URINE 48.7 MG/DL; MALB URINE SIEMENS 25.8 MG/L; MAU/CREAT RATIO 52.9 MCG/MG (0.0-30.0)
[2020-06-25 19:06] LABS: ALBUMIN 3.9 GM/DL (3.2-5.2); ALT/SGPT 52 U/L (12-78); BILIRUBIN,TOTAL 0.5 MG/DL (0.2-1.0); BLOOD UREA NITROGEN 8 MG/DL (7-18); CARBON DIOXIDE LEVEL 30 MEQ/L (21-32); CHLORIDE LEVEL 100 MEQ/L (98-107); CREATININE FOR GFR 0.87 MG/DL (0.55-1.30); FREE T4 1.12 NG/DL (0.76-1.46); GLOMERULAR FILTRATION RATE > 60.0 (>60); GLUCOSE, FASTING 415 MG/DL (70-100); PTH INTACT 11.9 PG/ML (18.5-88.0); SODIUM LEVEL 137 MEQ/L (136-145); TOTAL 25(OH) VITAMIN D 21.9 NG/ML (30.0-100.0); TOTAL PROTEIN 7.3 GM/DL (6.4-8.2); VITAMIN B12 LEVEL 542 PG/ML (247-911)
== END ==
LOC: M SFHCPLAZ 15:18
PROVIDERS: ATTEND Physician Assistant Medical
DX: E66.9 Obesity, unspecified (principal); D75.89 Other specified diseases of blood and blood-forming organs; J45.30 Mild persistent asthma, uncomplicated; E55.9 Vitamin D deficiency, unspecified; E11.65 Type 2 diabetes mellitus with hyperglycemia

== ENCOUNTER → 2020-08-24 | Outpatient (REF) | payer OTHER, MEDICAID ==
[~2020-08-24] MED LIST changes: +BACT800T5 PO
== END ==
LOC: M LAB REF 17:18
PROVIDERS: ATTEND Advanced Practice Midwife
DX: N39.0 Urinary tract infection, site not specified (principal)

== ENCOUNTER 2020-08-25 18:00 | Emergency (ER) | payer MEDICAID, OTHER ==
[~2020-08-25] VITALS: Ht 180.3 cm; Wt 99.5 kg
[~2020-08-25 18:00] MED LIST changes: -BACT800T5 PO
[2020-08-25 20:46] LABS: BASO # 0.1 10^3/uL (0.0-0.2); BASO % 0.4 % (0.0-1.0); EOS # 0.2 10^3/uL (0.0-0.5); EOS % 1.4 % (0.0-3.0); HEMATOCRIT 48.6 % (36.0-47.0); LYMPH # 2.7 10^3/uL (1.5-5.0); MEAN CORPUSCULAR HEMOGLOBIN 30.1 pg (27.0-33.0); MONO # 0.9 10^3/uL (0.0-0.8); MONO % 6.5 % (2.0-8.0); NEUTROPHILS # 9.7 10^3/uL (1.5-8.5); NEUTROPHILS % 71.3 % (36.0-66.0); PLATELET COUNT, AUTOMATED 324 10^3/uL (150-450); RED BLOOD COUNT 5.65 10^6/uL (4.00-5.40); WHITE BLOOD COUNT 13.7 10^3/uL (4.0-10.0)
[2020-08-25 21:26] LABS: ALBUMIN 3.8 GM/DL (3.2-5.2); ALT/SGPT 35 U/L (12-78); BILIRUBIN,DIRECT 0.1 MG/DL (0.0-0.2); BILIRUBIN,TOTAL 0.4 MG/DL (0.2-1.0); BLOOD UREA NITROGEN 11 MG/DL (7-18); CALCIUM LEVEL 9.6 MG/DL (8.5-10.1); CARBON DIOXIDE LEVEL 25 MEQ/L (21-32); CHLORIDE LEVEL 103 MEQ/L (98-107); CREATININE FOR GFR 0.83 MG/DL (0.55-1.30); GLOMERULAR FILTRATION RATE > 60.0 (>60); GLUCOSE, FASTING 379 MG/DL (70-100); LIPASE 202 U/L (73-393); POTASSIUM SERUM 3.9 MEQ/L (3.5-5.1); SODIUM LEVEL 137 MEQ/L (136-145); TOTAL PROTEIN 7.3 GM/DL (6.4-8.2)
[2020-08-25 21:39] LABS: HCG, SERUM QUALITATIVE NEGATIVE (NEGATIVE)
[2020-08-25] MEDS ORDERED: BACT800T5 PO (22:59)
[2020-08-25] MEDS ORDERED: BACTRIM 160MG/800MG DS TAB PO ONE (23:00)
--- NOTE | 2020-08-25 23:02 | REPVR ---
PROCEDURE INFORMATION: Exam: CT Abdomen And Pelvis Without Contrast Exam date and time: 08/25/2020 10:13 PM Age: 25 years old Clinical indication: Abdominal pain; Generalized; Additional info: Bilateral flank pain/ R/O ureterolithiasis TECHNIQUE: Imaging protocol: Computed tomography of the abdomen and pelvis without contrast. Axial, coronal and sagittal reformatted images were created and reviewed. Radiation optimization: All CT scans at this facility use at least one of these dose optimization techniques: automated exposure control; mA and/or kV adjustment per patient size (includes targeted exams where dose is matched to clinical indication); or iterative reconstruction. COMPARISON: US PELVIC NON-OB COMPLETE 09/27/2018 4:59 PM FINDINGS: Heart: Trace pericardial fluid. Liver: Mild hepatomegaly. Diffuse hepatic steatosis. Gallbladder and bile ducts: No radiodense gallstones. No biliary ductal dilatation. Pancreas: Unremarkable. Spleen: Unremarkable. Adrenal glands: Normal. No mass. Kidneys and ureters: No mass. No radiodense calculi. No hydronephrosis. Stomach and bowel: No bowel wall thickening. No obstruction. No pneumatosis. Appendix: Normal. Intraperitoneal space: No free fluid. No organized fluid collection. No free air. Vasculature: Unremarkable. No aneurysm. Lymph nodes: Small mesenteric lymph nodes, nonspecific in appearance. No pathologically enlarged lymph nodes. Urinary bladder: Unremarkable as visualized. Reproductive: Unremarkable. Bones/joints: No acute osseous abnormality. Mild degenerative changes. Soft tissues: Unremarkable. IMPRESSION: 1. Limited noncontrast examination without CT evidence of acute intra-abdominal or pelvic pathology. 2. Additional findings, as above. Electronically signed by: Seth Mcfarland On 08/25/2020 23:02:33 PM
[2020-08-25 23:55] VITALS: BP 136/95
== END 2020-08-25 22:10 | disposition left against medical advice (07) ==
LOC: M ED 18:00
DX: N30.00 Acute cystitis without hematuria (principal); E11.9 Type 2 diabetes mellitus without complications; J45.909 Unspecified asthma, uncomplicated; F41.9 Anxiety disorder, unspecified; F17.200 Nicotine dependence, unspecified, uncomplicated; Z79.4 Long term (current) use of insulin; Z79.899 Other long term (current) drug therapy

== ENCOUNTER 2020-11-05 09:31 | Emergency (ER) | payer MEDICAID, OTHER ==
[~2020-11-05] VITALS: Ht 177.8 cm; Wt 97.3 kg
[~2020-11-05 09:31] MED LIST changes: +BACT800T5 PO
[2020-11-05] MEDS ORDERED: MEDR150I10 (09:50)
[2020-11-05] MEDS ORDERED: NS 1,000 ML IV ONE (12:15)
[2020-11-05 12:59] LABS: ALT/SGPT 33 U/L (12-78); BILIRUBIN,DIRECT < 0.1 MG/DL (0.0-0.2); BILIRUBIN,TOTAL 0.5 MG/DL (0.2-1.0); TOTAL PROTEIN 7.4 GM/DL (6.4-8.2)
[2020-11-05 13:05] LABS: HEMOGLOBIN A1c 11.1 %
[2020-11-05 13:05] LABS: BLOOD UREA NITROGEN 7 MG/DL (7-18); CALCIUM LEVEL 9.9 MG/DL (8.5-10.1); CARBON DIOXIDE LEVEL 27 MEQ/L (21-32); CHLORIDE LEVEL 102 MEQ/L (98-107); GLOMERULAR FILTRATION RATE > 60.0 (>60); GLUCOSE, FASTING 320 MG/DL (70-100); POTASSIUM SERUM 4.6 MEQ/L (3.5-5.1); SODIUM LEVEL 136 MEQ/L (136-145)
[2020-11-05] MEDS ORDERED: metFORMIN (GLUCOPHAGE) 500MG TAB PO ONE (13:20)
[2020-11-05] MEDS ORDERED: BACTRIM 160MG/800MG DS TAB PO ONE (13:20)
[2020-11-05] MEDS ORDERED: METF500T13 PO (13:21)
[2020-11-05] MEDS ORDERED: SULF1TAB23 PO (13:21)
[2020-11-05 13:55] VITALS: BP 145/85
== END 2020-11-05 13:55 | disposition home or self-care (01) ==
LOC: M ED 09:31
DX: N39.0 Urinary tract infection, site not specified (principal); E11.9 Type 2 diabetes mellitus without complications; I10 Essential (primary) hypertension; F41.9 Anxiety disorder, unspecified; F32.9 Major depressive disorder, single episode, unspecified

== ENCOUNTER → 2021-09-15 | Outpatient (CLI) | payer OTHER ==
[~2021-09-15] MED LIST changes: -CLIN150C15 PO; +CLIN150C17 PO; +SULF1TAB23 PO
[2021-09-15 16:10] LABS: HEMOGLOBIN A1c 11.6 %
[2021-09-15 16:28] LABS: CREATININE, URINE 42.5 MG/DL; MALB URINE SIEMENS 24.6 MG/L; MAU/CREAT RATIO 57.8 MCG/MG (0.0-30.0)
[2021-09-15 16:38] LABS: ALBUMIN 3.6 GM/DL (3.2-5.2); ALT/SGPT 37 U/L (12-78); BILIRUBIN,TOTAL 0.6 MG/DL (0.2-1.0); BLOOD UREA NITROGEN 11 MG/DL (7-18); CALCIUM LEVEL 9.7 MG/DL (8.5-10.1); CARBON DIOXIDE LEVEL 28 MEQ/L (21-32); CHLORIDE LEVEL 102 MEQ/L (98-107); CREATININE FOR GFR 0.83 MG/DL (0.55-1.30); FREE T4 0.94 NG/DL (0.76-1.46); GLOMERULAR FILTRATION RATE > 60.0 (>60); GLUCOSE, FASTING 493 MG/DL (70-100); POTASSIUM SERUM 4.3 MEQ/L (3.5-5.1); SODIUM LEVEL 136 MEQ/L (136-145); THYROID STIMULATING HORMONE 0.907 uIU/ML (0.358-3.740); TOTAL PROTEIN 7.1 GM/DL (6.4-8.2)
== END ==
LOC: M PLALAB 13:35
PROVIDERS: ATTEND Nurse Practitioner Adult Health
DX: E11.65 Type 2 diabetes mellitus with hyperglycemia (principal); E66.9 Obesity, unspecified; E55.9 Vitamin D deficiency, unspecified

== ENCOUNTER 2022-01-03 10:05 | Emergency (ER) | payer OTHER ==
[~2022-01-03] VITALS: Ht 175.3 cm; Wt 102.9 kg
[~2022-01-03 10:05] MED LIST changes: -LABE100T4 PO; +LABE100T6 PO
[2022-01-03] MEDS ORDERED: GABA-282 (10:12)
[2022-01-03] MEDS ORDERED: ALBU8.5H (10:12)
[2022-01-03] MEDS ORDERED: ERGO500029 (10:12)
[2022-01-03] MEDS ORDERED: BASA100I (10:12)
[2022-01-03] MEDS ORDERED: NEOSPORIN OINT 0.9 GM PKT TOP ONE (13:25)
[2022-01-03 14:29] LABS: BASO # 0.1 10^3/uL (0.0-0.2); BASO % 0.6 % (0.0-1.0); EOS # 0.5 10^3/uL (0.0-0.5); EOS % 5.8 % (0.0-3.0); HEMATOCRIT 44.6 % (36.0-47.0); HEMOGLOBIN 15.4 g/dl (12.0-15.5); LYMPH % 24.3 % (24.0-44.0); MEAN CORPUSCULAR HEMOGLOBIN 30.7 pg (27.0-33.0); MEAN CORPUSCULAR HGB CONC 34.5 g/dl (32.0-36.5); MONO # 0.5 10^3/uL (0.0-0.8); MONO % 6.1 % (2.0-8.0); NEUTROPHILS # 5.1 10^3/uL (1.5-8.5); NEUTROPHILS % 62.8 % (36.0-66.0); PLATELET COUNT, AUTOMATED 275 10^3/uL (150-450); RED BLOOD COUNT 5.01 10^6/uL (4.00-5.40); WHITE BLOOD COUNT 8.2 10^3/uL (4.0-10.0)
[2022-01-03 14:56] LABS: ERYTHROCYTE SEDIMENTATION RATE 7 mm/hr (0-20)
[2022-01-03 15:04] LABS: ALBUMIN 3.4 GM/DL (3.2-5.2); ALT/SGPT 35 U/L (12-78); BILIRUBIN,DIRECT 0.2 MG/DL (0.0-0.2); BILIRUBIN,TOTAL 0.8 MG/DL (0.2-1.0); BLOOD UREA NITROGEN 7 MG/DL (7-18); CARBON DIOXIDE LEVEL 25 MEQ/L (21-32); CHLORIDE LEVEL 106 MEQ/L (98-107); CREATININE FOR GFR 0.72 MG/DL (0.55-1.30); GLOMERULAR FILTRATION RATE > 60.0 (>60); GLUCOSE, FASTING 337 MG/DL (70-100); POTASSIUM SERUM 4.1 MEQ/L (3.5-5.1); SODIUM LEVEL 135 MEQ/L (136-145); TOTAL PROTEIN 7.3 GM/DL (6.4-8.2)
[2022-01-03] MEDS ORDERED: BACTRIM 160MG/800MG DS TAB PO ONE (15:15)
[2022-01-03] MEDS ORDERED: BACT800T5 PO (15:16)
[2022-01-03 15:33] VITALS: BP 135/88
== END 2022-01-03 15:40 | disposition home or self-care (01) ==
LOC: M ED 10:05
DX: L03.116 Cellulitis of left lower limb (principal); L84 Corns and callosities; E11.9 Type 2 diabetes mellitus without complications; I10 Essential (primary) hypertension; F41.9 Anxiety disorder, unspecified; F32.9 Major depressive disorder, single episode, unspecified; E66.9 Obesity, unspecified

== ENCOUNTER 2022-05-19 11:00 | Emergency (ER) | payer OTHER ==
[~2022-05-19] VITALS: Ht 175.3 cm; Wt 106.1 kg
[~2022-05-19 11:00] MED LIST changes: +ALBU8.5H; +BASA100I; +ERGO500029; +GABA-282
[2022-05-19] MEDS ORDERED: ACETAMINOPHEN 500 MG TAB PO ONE (12:30)
[2022-05-19] MEDS ORDERED: CEPHALEXIN 500 MG CAP PO ONE (12:30)
[2022-05-19] MEDS ORDERED: BOOSTRIX/ADACEL VACCINE (DIPHTH/PERTUSS/ACELL/TETANUS) 0.5ML SYR IM ONE (12:30)
[2022-05-19 13:09] LABS: BASO # 0.1 10^3/uL (0.0-0.2); BASO % 0.8 % (0.0-1.0); EOS # 0.7 10^3/uL (0.0-0.5); EOS % 7.6 % (0.0-3.0); HEMATOCRIT 48.3 % (36.0-47.0); HEMOGLOBIN 16.3 g/dl (12.0-15.5); LYMPH # 2.2 10^3/uL (1.5-5.0); MEAN CORPUSCULAR HEMOGLOBIN 30.2 pg (27.0-33.0); MEAN CORPUSCULAR HGB CONC 33.7 g/dl (32.0-36.5); MEAN CORPUSCULAR VOLUME 89.4 fl (80.0-96.0); MONO # 0.6 10^3/uL (0.0-0.8); MONO % 6.7 % (2.0-8.0); NEUTROPHILS # 5.1 10^3/uL (1.5-8.5); NEUTROPHILS % 58.6 % (36.0-66.0); PLATELET COUNT, AUTOMATED 301 10^3/uL (150-450); WHITE BLOOD COUNT 8.6 10^3/uL (4.0-10.0)
[2022-05-19 13:19] LABS: APPEARANCE, URINE MANUAL CLOUDY (CLEAR); COLOR, URINE MANUAL YELLOW (YELLOW)
[2022-05-19 13:20] LABS: BILIRUBIN, URINE MANUAL NEGATIVE (NEGATIVE); GLUCOSE, URINE (UA) MANUAL NEGATIVE (NEGATIVE); KETONE, URINE MANUAL NEGATIVE (NEGATIVE); PROTEIN, URINE MANUAL NEGATIVE (NEGATIVE); UROBILINOGEN, URINE MANUAL NORMAL (NORMAL)
[2022-05-19 13:21] LABS: BLOOD URINE MANUAL POSITIVE (NEGATIVE); LEUKOCYTE ESTERASE, URINE MAN POSITIVE (NEGATIVE); NITRITE, URINE MANUAL POSITIVE (NEGATIVE)
[2022-05-19 13:36] LABS: BLOOD UREA NITROGEN 12 MG/DL (9-23); CALCIUM LEVEL 9.8 MG/DL (8.5-10.1); CARBON DIOXIDE LEVEL 22 MMOL/L (20-31); CHLORIDE LEVEL 108 MMOL/L (98-107); CREATININE FOR GFR 0.43 MG/DL (0.55-1.30); GLOMERULAR FILTRATION RATE > 60.0 (>60); GLUCOSE, FASTING 117 MG/DL (60-100); POTASSIUM SERUM 4.1 MMOL/L (3.5-5.1); SODIUM LEVEL 140 MMOL/L (136-145)
[2022-05-19 13:57] LABS: BACTERIA, URINE LARGE AMOUNT; HYALINE CAST, URINE NONE SEEN /lpf (0-1); RBC, URINE 15-20 /hpf (0-3); SQUAMOUS EPITHELIAL CELL URINE SMALL AMOUNT /hpf (SMALL AMT)
[2022-05-19 13:58] LABS: AMORPHOUS SEDIMENT, URINE SMALL AMOUNT (NEGATIVE)
[2022-05-19] MEDS ORDERED: CEPH500C PO (14:26)
[2022-05-19 14:49] VITALS: BP 120/85
== END 2022-05-19 14:52 | disposition home or self-care (01) ==
LOC: M ED 11:00
DX: N39.0 Urinary tract infection, site not specified (principal); S91.311A Laceration without foreign body, right foot, initial encounter; X58.XXXA Exposure to other specified factors, initial encounter; Y92.009 Unspecified place in unspecified non-institutional (private) residence as the place of occurrence of the external cause; L03.115 Cellulitis of right lower limb; E11.9 Type 2 diabetes mellitus without complications; I10 Essential (primary) hypertension; F41.9 Anxiety disorder, unspecified; F32.A Depression, unspecified

== ENCOUNTER 2022-10-24 10:35 | Emergency (ER) | payer OTHER ==
[~2022-10-24] VITALS: Ht 175.3 cm; Wt 108.4 kg
[2022-10-24 10:35] VITALS: TEMP 98.7
[~2022-10-24 10:35] MED LIST changes: +CEPH500C PO
[2022-10-24] MEDS ORDERED: NOVOINJ3 (11:30)
[2022-10-24] MEDS ORDERED: SERT50TA29 (11:30)
[2022-10-24] MEDS ORDERED: NAPR-837 PO (12:37)
[2022-10-24 12:41] VITALS: BP 132/91; O2SAT 96
== END 2022-10-24 12:43 | disposition home or self-care (01) ==
LOC: M ED 10:35
DX: M67.833 Other specified disorders of tendon, right wrist (principal); E11.9 Type 2 diabetes mellitus without complications; F41.9 Anxiety disorder, unspecified; F32.A Depression, unspecified; Z79.4 Long term (current) use of insulin

== ENCOUNTER 2022-12-26 09:18 | Inpatient (IN) | payer OTHER ==
[~2022-12-26] VITALS: Ht 167.6 cm; Wt 105.9 kg
[2022-12-26] VITALS (15 sets, daily range): BP systolic 132–169; BP diastolic 77–90; TEMP 97.1–98.3; O2SAT 99–100
[~2022-12-26 09:18] MED LIST changes: -BASA100I; +BASA100I SC; -MEDR150I10; +MEDR150I13; +NAPR-837 PO; +NOVOINJ3 SC; +SERT50TA29
[2022-12-26] MEDS ORDERED: GLUCAGON INJ 1MG VIAL As Ordered ONE ×2 (09:22→09:23)
[2022-12-26] MEDS ORDERED: DEXTROSE 50% 50ML SYRINGE As Ordered ONE (09:23)
[2022-12-26] MEDS ORDERED: D10W 250 ML IV ONE (09:30)
[2022-12-26] MEDS ORDERED: DEXTROSE 50% 50ML SYRINGE IV STA ×3 (09:30→12:42)
[2022-12-26 09:41] LABS: ABG BASE EXCESS -5.3 (-2.0-2.0); ABG HCO3 19.4 MMOL/L (22.0-26.0); ABG O2 SATURATION 96.3 % (95.0-99.0); ABG PARTIAL PRESSURE CO2 35.7 mmHg (35.0-45.0); ABG PARTIAL PRESSURE O2 86.9 mmHg (75.0-100.0); ABG STANDARD HCO3 20.1 MMOL/L. (22.0-26.0); ABG TOTAL CO2 20.5 MMOL/L (22.0-29.0); ABG pH (ARTERIAL) 7.353 UNITS (7.350-7.450)
[2022-12-26 09:47] LABS: BASO % 0.2 % (0.0-1.0); EOS # 0.1 10^3/uL (0.0-0.5); EOS % 0.5 % (0.0-3.0); HEMATOCRIT 46.1 % (36.0-47.0); HEMOGLOBIN 16.4 g/dl (12.0-15.5); LYMPH # 2.2 10^3/uL (1.5-5.0); LYMPH % 9.6 % (24.0-44.0); MEAN CORPUSCULAR HEMOGLOBIN 30.7 pg (27.0-33.0); MEAN CORPUSCULAR HGB CONC 35.6 g/dl (32.0-36.5); MEAN CORPUSCULAR VOLUME 86.2 fl (80.0-96.0); MONO # 1.3 10^3/uL (0.0-0.8); MONO % 5.6 % (2.0-8.0); NEUTROPHILS # 18.9 10^3/uL (1.5-8.5); NEUTROPHILS % 83.4 % (36.0-66.0); PLATELET COUNT, AUTOMATED 388 10^3/uL (150-450); RED BLOOD COUNT 5.35 10^6/uL (4.00-5.40); WHITE BLOOD COUNT 22.7 10^3/uL (4.0-10.0)
[2022-12-26 10:22] LABS: BLOOD UREA NITROGEN 9 MG/DL (9-23); CALCIUM LEVEL 10.4 MG/DL (8.5-10.1); CARBON DIOXIDE LEVEL 20 MMOL/L (20-31); CHLORIDE LEVEL 110 MMOL/L (98-107); CREATININE FOR GFR 0.57 MG/DL (0.55-1.30); GLOMERULAR FILTRATION RATE > 60.0 (>60); GLUCOSE, FASTING 20 MG/DL (60-100); POTASSIUM SERUM 2.4 MMOL/L (3.5-5.1); SODIUM LEVEL 146 MMOL/L (136-145)
[2022-12-26 10:26] LABS: HCG, SERUM QUALITATIVE NEGATIVE (NEGATIVE)
[2022-12-26] MEDS ORDERED: KCL 10MEQ/100ML SWI (KRUN) 10 MEQ in IV 1 EA IV ONE (10:30)
[2022-12-26 10:38] LABS: ETHYL ALCOHOL (ETHANOL) 0.005 % (0.000-0.010)
[2022-12-26 10:39] LABS: ACETAMINOPHEN LEVEL < 2.0 UG/ML (10.0-20.0); SALICYLATE LEVEL < 3.0 MG/DL (<30)
[2022-12-26 10:39] LABS: AMPHETAMINES LEVEL URINE NEGATIVE (NEGATIVE); BARBITURATES URINE NEGATIVE (NEGATIVE); BENZODIAZEPINES URINE NEGATIVE (NEGATIVE); CANNABINOIDS URINE NEGATIVE (NEGATIVE); COCAINE METABOLITE URINE NEGATIVE (NEGATIVE); METHADONE URINE NEGATIVE (NEGATIVE); OPIATES URINE NEGATIVE (NEGATIVE); PHENCYCLIDINE URINE NEGATIVE (NEGATIVE)
[2022-12-26 10:40] LABS: HEMOGLOBIN A1c 10.1 % (4.0-6.0)
[2022-12-26] MEDS ORDERED: CEFEPIME HCL 2 GM in D5W MINI-BAG PLUS 50 ML IV ONE (10:45)
[2022-12-26] MEDS: D5W/0.9% SODIUM CHLORIDE 1,000 ML IV SCH ×2 (10:56→15:54)
[2022-12-26] MEDS ORDERED: ALBUTEROL SULFATE 2.5MG/0.5ML INH NEB SOLN NEB PRN (13:15)
[2022-12-26] MEDS ORDERED: MED REC IN PROGRESS XX SCH (14:15)
[2022-12-26] MEDS ORDERED: HOME MED LIST COMPLETE! XX SCH (14:50)
[2022-12-26 15:01] LABS: BLOOD UREA NITROGEN 9 MG/DL (9-23); CALCIUM LEVEL 9.2 MG/DL (8.5-10.1); CARBON DIOXIDE LEVEL 20 MMOL/L (20-31); CHLORIDE LEVEL 111 MMOL/L (98-107); CREATININE FOR GFR 0.44 MG/DL (0.55-1.30); GLOMERULAR FILTRATION RATE > 60.0 (>60); GLUCOSE, FASTING 117 MG/DL (60-100); POTASSIUM SERUM 2.7 MMOL/L (3.5-5.1); SODIUM LEVEL 142 MMOL/L (136-145)
[2022-12-26] MEDS: KCL 10MEQ/100ML SWI (KRUN) 10 MEQ in IV 1 EA IV SCH ×4 (15:55→19:16)
[2022-12-26] MEDS ORDERED: GLUCAGON INJ 1MG VIAL SC PRN (16:15)
[2022-12-26] MEDS ORDERED: GLUCOSE 4GM CHEW TABLET PO PRN (16:15)
[2022-12-26] MEDS ORDERED: DEXTROSE 50% 50ML SYRINGE IV PRN ×2 (16:15→18:00)
[2022-12-26] MEDS ORDERED: D5W/0.9% SODIUM CHLORIDE 1,000 ML IV SCH (17:20)
[2022-12-26] MEDS: CEFEPIME HCL 2 GM in D5W MINI-BAG PLUS 50 ML IV SCH (18:17)
[2022-12-26] MEDS ORDERED: D10W 1,000 ML IV SCH (18:45)
[2022-12-26] MEDS: D5W IV SCH (20:22)
[2022-12-26] MEDS: SODIUM CHLORIDE IV SCH (20:22)
[2022-12-26] MEDS: [UNRECOGNIZED DRUG - OTHER] IV SCH (20:22)
[2022-12-26] MEDS ORDERED: CEFEPIME HCL 2 GM in D5W MINI-BAG PLUS 50 ML IV SCH (22:00)
[2022-12-27] VITALS (34 sets, daily range): BP systolic 111–157; BP diastolic 65–93; TEMP 97.3–99.5; O2SAT 99–100
[2022-12-27] MEDS: [UNRECOGNIZED DRUG - OTHER] IV SCH ×2 (02:17→09:53)
[2022-12-27] MEDS: SODIUM CHLORIDE IV SCH ×2 (02:17→09:53)
[2022-12-27] MEDS: CEFEPIME HCL 2 GM in D5W MINI-BAG PLUS 50 ML IV SCH ×2 (02:17→09:55)
[2022-12-27] MEDS: D5W IV SCH ×2 (02:17→09:53)
[2022-12-27 04:26] LABS: HEMATOCRIT 41.2 % (36.0-47.0); HEMOGLOBIN 14.6 g/dl (12.0-15.5); MEAN CORPUSCULAR HEMOGLOBIN 30.4 pg (27.0-33.0); MEAN CORPUSCULAR HGB CONC 35.4 g/dl (32.0-36.5); MEAN CORPUSCULAR VOLUME 85.8 fl (80.0-96.0); PLATELET COUNT, AUTOMATED 299 10^3/uL (150-450); WHITE BLOOD COUNT 19.4 10^3/uL (4.0-10.0)
[2022-12-27 05:01] LABS: ALBUMIN 3.2 G/DL (3.2-5.2); ALKALINE PHOSPHATASE 45 U/L (46-116); ALT/SGPT 18 U/L (7.0-40); AST/SGOT 25 U/L (<34); BILIRUBIN,TOTAL 0.8 MG/DL (0.3-1.2); BLOOD UREA NITROGEN < 5 MG/DL (9-23); CALCIUM LEVEL 8.6 MG/DL (8.5-10.1); CARBON DIOXIDE LEVEL 20 MMOL/L (20-31); CHLORIDE LEVEL 114 MMOL/L (98-107); CREATININE FOR GFR 0.48 MG/DL (0.55-1.30); GLOMERULAR FILTRATION RATE > 60.0 (>60); GLUCOSE, FASTING 76 MG/DL (60-100); POTASSIUM SERUM 3.6 MMOL/L (3.5-5.1); SODIUM LEVEL 144 MMOL/L (136-145); TOTAL PROTEIN 6.2 G/DL (5.7-8.2)
[2022-12-27] MEDS: ENOXAPARIN 40MG/0.4ML SYRINGE (J1650 PER 10MG) SC SCH (09:53)
[2022-12-27] MEDS ORDERED: ACETAMINOPHEN TAB 650MG DOSE (2X325MG) PO PRN (13:25)
[2022-12-27] MEDS: INSULIN LISPRO (NovoLOG) PER UNIT SC SCH (23:30)
[2022-12-28] VITALS: O2SAT 98
[2022-12-28 04:00] VITALS: BP 141/71; TEMP 98.6; O2SAT 98
[2022-12-28 04:25] LABS: HEMATOCRIT 38.5 % (36.0-47.0); HEMOGLOBIN 13.6 g/dl (12.0-15.5); MEAN CORPUSCULAR HEMOGLOBIN 30.7 pg (27.0-33.0); MEAN CORPUSCULAR HGB CONC 35.3 g/dl (32.0-36.5); MEAN CORPUSCULAR VOLUME 86.9 fl (80.0-96.0); PLATELET COUNT, AUTOMATED 244 10^3/uL (150-450); RED BLOOD COUNT 4.43 10^6/uL (4.00-5.40); WHITE BLOOD COUNT 10.1 10^3/uL (4.0-10.0)
[2022-12-28 05:10] LABS: ALKALINE PHOSPHATASE 49 U/L (46-116); ALT/SGPT 15 U/L (7.0-40); AST/SGOT 13 U/L (<34); BILIRUBIN,TOTAL 0.7 MG/DL (0.3-1.2); BLOOD UREA NITROGEN 6 MG/DL (9-23); CALCIUM LEVEL 8.8 MG/DL (8.5-10.1); CARBON DIOXIDE LEVEL 20 MMOL/L (20-31); CHLORIDE LEVEL 111 MMOL/L (98-107); GLOMERULAR FILTRATION RATE > 60.0 (>60); GLUCOSE, FASTING 195 MG/DL (60-100); POTASSIUM SERUM 3.6 MMOL/L (3.5-5.1); SODIUM LEVEL 142 MMOL/L (136-145); TOTAL PROTEIN 5.8 G/DL (5.7-8.2)
[2022-12-28] MEDS: INSULIN LISPRO (NovoLOG) PER UNIT SC SCH (05:34)
[2022-12-28] MEDS ORDERED: INSULIN LISPRO (NovoLOG) PER UNIT SC SCH ×2 (07:30→21:00)
[2022-12-28 07:57] VITALS: BP 136/73; TEMP 97.6; O2SAT 98
[2022-12-28] MEDS: ENOXAPARIN 40MG/0.4ML SYRINGE (J1650 PER 10MG) SC SCH (08:52)
[2023-01-02 02:07] LABS: C-PEPTIDE 0.2 ng/mL (1.1-4.4); INSULIN ANTIBODY <5.0 uU/mL (.); INSULIN LEVEL 5.4 uIU/mL (2.6-24.9)
== END 2022-12-28 12:00 | disposition home or self-care (01) | DRG 812 ==
LOC: M ED 09:18 → EDBD 09:18 → M ED INP 13:14 → ENRESERV 14:40 → M ICU 15:29
PROVIDERS: ADMIT Internal Medicine Pulmonary Disease; ATTEND Internal Medicine
DX: T38.3X1A Poisoning by insulin and oral hypoglycemic [antidiabetic] drugs, accidental (unintentional), initial encounter (principal); G93.41 Metabolic encephalopathy; E11.649 Type 2 diabetes mellitus with hypoglycemia without coma; E87.20 Acidosis, unspecified; R56.9 Unspecified convulsions; E66.9 Obesity, unspecified; F17.210 Nicotine dependence, cigarettes, uncomplicated; F17.290 Nicotine dependence, other tobacco product, uncomplicated; E87.6 Hypokalemia; Z79.4 Long term (current) use of insulin; Z20.822 Contact with and (suspected) exposure to COVID-19; Z90.79 Acquired absence of other genital organ(s); Z68.38 Body mass index [BMI] 38.0-38.9, adult

== ENCOUNTER → 2023-01-02 | Outpatient (REF) | payer OTHER ==
[2023-01-02 17:27] LABS: BLOOD UREA NITROGEN 7 MG/DL (9-23); CALCIUM LEVEL 9.8 MG/DL (8.5-10.1); CARBON DIOXIDE LEVEL 28 MMOL/L (20-31); CHLORIDE LEVEL 102 MMOL/L (98-107); GLOMERULAR FILTRATION RATE > 60.0 (>60); GLUCOSE, FASTING 196 MG/DL (60-100); POTASSIUM SERUM 4.4 MMOL/L (3.5-5.1); SODIUM LEVEL 139 MMOL/L (136-145)
[2023-01-02 17:28] LABS: TOTAL 25(OH) VITAMIN D 20.2 NG/ML (20.0-100.0)
[2023-01-02 17:36] LABS: HEMOGLOBIN A1c 9.7 % (4.0-6.0)
== END ==
LOC: M LAB REF 16:11
PROVIDERS: ATTEND Nurse Practitioner Family
DX: Z11.9 Encounter for screening for infectious and parasitic diseases, unspecified (principal); E55.9 Vitamin D deficiency, unspecified; E11.65 Type 2 diabetes mellitus with hyperglycemia

== ENCOUNTER 2023-02-27 12:51 | Emergency (ER) | payer OTHER ==
[~2023-02-27] VITALS: Ht 175.3 cm; Wt 108.4 kg
[2023-02-27 14:20] LABS: BASO # 0.1 10^3/uL (0.0-0.2); BASO % 0.6 % (0.0-1.0); EOS # 1.1 10^3/uL (0.0-0.5); EOS % 12.7 % (0.0-3.0); HEMATOCRIT 43.9 % (36.0-47.0); HEMOGLOBIN 15.1 g/dl (12.0-15.5); LYMPH # 2.2 10^3/uL (1.5-5.0); LYMPH % 25.9 % (24.0-44.0); MEAN CORPUSCULAR HEMOGLOBIN 31.1 pg (27.0-33.0); MEAN CORPUSCULAR HGB CONC 34.4 g/dl (32.0-36.5); MEAN CORPUSCULAR VOLUME 90.5 fl (80.0-96.0); MONO # 0.6 10^3/uL (0.0-0.8); MONO % 6.9 % (2.0-8.0); NEUTROPHILS # 4.6 10^3/uL (1.5-8.5); NEUTROPHILS % 53.7 % (36.0-66.0); PLATELET COUNT, AUTOMATED 343 10^3/uL (150-450); RED BLOOD COUNT 4.85 10^6/uL (4.00-5.40); WHITE BLOOD COUNT 8.6 10^3/uL (4.0-10.0)
[2023-02-27 14:46] LABS: BLOOD UREA NITROGEN 10 MG/DL (9-23); C REACTIVE PROTEIN QUANTITATIV < 0.40 MG/DL (<1.0); CALCIUM LEVEL 9.4 MG/DL (8.5-10.1); CARBON DIOXIDE LEVEL 22 MMOL/L (20-31); CHLORIDE LEVEL 106 MMOL/L (98-107); CREATININE FOR GFR 0.47 MG/DL (0.55-1.30); GLOMERULAR FILTRATION RATE > 60.0 (>60); GLUCOSE, FASTING 321 MG/DL (60-100); POTASSIUM SERUM 4.2 MMOL/L (3.5-5.1); SODIUM LEVEL 139 MMOL/L (136-145)
[2023-02-27 14:52] LABS: ERYTHROCYTE SEDIMENTATION RATE 24 mm/hr (0-20)
[2023-02-27 16:12] VITALS: BP 132/87; TEMP 98.5; O2SAT 100
== END 2023-02-27 16:20 | disposition home or self-care (01) ==
LOC: M ED 12:51
DX: M79.671 Pain in right foot (principal); E11.9 Type 2 diabetes mellitus without complications; F17.200 Nicotine dependence, unspecified, uncomplicated; Z79.4 Long term (current) use of insulin

== ENCOUNTER → 2023-03-27 | Outpatient (REF) | payer OTHER ==
[2023-03-27 13:03] LABS: HEMOGLOBIN A1c 7.9 % (4.0-6.0)
== END ==
LOC: M LAB REF 11:35
PROVIDERS: ATTEND Nurse Practitioner Family
DX: E55.9 Vitamin D deficiency, unspecified (principal); E11.65 Type 2 diabetes mellitus with hyperglycemia

== ENCOUNTER → 2023-04-03 | Outpatient (REF) | payer OTHER ==
[2023-04-03 18:06] LABS: CREATININE, URINE 122.5 MG/DL; MAU/CREAT RATIO 29.3 MCG/MG (0.0-30.0)
== END ==
LOC: M LAB REF 16:22
PROVIDERS: ATTEND Nurse Practitioner Family
DX: E11.65 Type 2 diabetes mellitus with hyperglycemia (principal)

== ENCOUNTER → 2023-04-12 | Outpatient (CLI) | payer OTHER ==
[~2023-04-12] MED LIST changes: +INSU100V19 SC; -INSURSD SC
== END ==
LOC: M LAB 08:20
PROVIDERS: ATTEND Nurse Practitioner Family
DX: E11.65 Type 2 diabetes mellitus with hyperglycemia (principal)

== ENCOUNTER 2023-05-15 11:24 | Emergency (ER) | payer OTHER ==
[~2023-05-15] VITALS: Ht 175.3 cm; Wt 113.0 kg
[2023-05-15 11:25] VITALS: BP 143/77; TEMP 98.7; O2SAT 99
== END 2023-05-15 14:16 | disposition left against medical advice (07) ==
LOC: M ED 11:24
DX: Z53.21 Procedure and treatment not carried out due to patient leaving prior to being seen by health care provider (principal)

== ENCOUNTER → 2023-07-02 | Outpatient (CLI) | payer OTHER ==
[2023-07-02 14:45] LABS: BLOOD UREA NITROGEN 9 MG/DL (9-23); CALCIUM LEVEL 9.4 MG/DL (8.5-10.1); CARBON DIOXIDE LEVEL 29 MMOL/L (20-31); CHLORIDE LEVEL 104 MMOL/L (98-107); CREATININE FOR GFR 0.52 MG/DL (0.55-1.30); GLOMERULAR FILTRATION RATE > 60.0 (>60); GLUCOSE, FASTING 245 MG/DL (60-100); POTASSIUM SERUM 4.5 MMOL/L (3.5-5.1); SODIUM LEVEL 137 MMOL/L (136-145)
[2023-07-02 14:52] LABS: HEMOGLOBIN A1c 8.7 % (4.0-6.0)
== END ==
LOC: M LAB 13:37
PROVIDERS: ATTEND Nurse Practitioner Family
DX: E11.65 Type 2 diabetes mellitus with hyperglycemia (principal)

== ENCOUNTER 2023-07-21 09:10 | Emergency (ER) | payer OTHER ==
[~2023-07-21] VITALS: Ht 175.3 cm; Wt 115.4 kg
[2023-07-21] MEDS ORDERED: FARX1TAB3 (09:18)
[2023-07-21] MEDS ORDERED: TRUL10IN (09:18)
[2023-07-21] MEDS ORDERED: VITA200032 (09:18)
[2023-07-21] MEDS ORDERED: LORA-1041 (09:18)
[2023-07-21] MEDS ORDERED: [UNRECOGNIZED DRUG - CODE] TOP (11:36)
[2023-07-21 11:46] VITALS: BP 136/84; TEMP 97.1; O2SAT 98
== END 2023-07-21 11:49 | disposition home or self-care (01) ==
LOC: M ED 09:10
DX: E11.9 Type 2 diabetes mellitus without complications (principal); Z76.0 Encounter for issue of repeat prescription; I10 Essential (primary) hypertension; F41.9 Anxiety disorder, unspecified; F32.A Depression, unspecified; Z79.4 Long term (current) use of insulin

== ENCOUNTER 2023-11-18 15:06 | Emergency (ER) | payer OTHER ==
[~2023-11-18] VITALS: Ht 175.3 cm; Wt 117.6 kg
[~2023-11-18 15:06] MED LIST changes: +FARX1TAB3; +LORA-1041; +TRUL10IN; +VITA200032; +[UNRECOGNIZED DRUG - CODE] TOP
[2023-11-18 16:16] LABS: BASO # 0.1 10^3/uL (0.0-0.2); BASO % 0.5 % (0.0-1.0); EOS # 0.4 10^3/uL (0.0-0.5); HEMATOCRIT 47.1 % (36.0-47.0); LYMPH # 2.1 10^3/uL (1.5-5.0); LYMPH % 18.9 % (24.0-44.0); MEAN CORPUSCULAR HEMOGLOBIN 30.5 pg (27.0-33.0); MEAN CORPUSCULAR VOLUME 89.9 fl (80.0-96.0); MONO # 0.7 10^3/uL (0.0-0.8); MONO % 6.7 % (2.0-8.0); NEUTROPHILS # 7.6 10^3/uL (1.5-8.5); NEUTROPHILS % 69.4 % (36.0-66.0); PLATELET COUNT, AUTOMATED 328 10^3/uL (150-450); RED BLOOD COUNT 5.24 10^6/uL (4.00-5.40)
[2023-11-18 16:50] LABS: HCG, SERUM QUANTITATIVE < 2.6 MIU/ML (<4.2)
[2023-11-18 16:51] LABS: LIPASE 62 U/L (12-53)
[2023-11-18 16:53] LABS: ALBUMIN 3.8 G/DL (3.2-5.2); ALKALINE PHOSPHATASE 64 U/L (46-116); ALT/SGPT 29 U/L (7.0-40); AST/SGOT 14 U/L (<34); BILIRUBIN,DIRECT 0.2 MG/DL (<0.4); BILIRUBIN,TOTAL 0.6 MG/DL (0.3-1.2); BLOOD UREA NITROGEN 9 MG/DL (9-23); CALCIUM LEVEL 9.4 MG/DL (8.5-10.1); CARBON DIOXIDE LEVEL 24 MMOL/L (20-31); CHLORIDE LEVEL 106 MMOL/L (98-107); CREATININE FOR GFR 0.51 MG/DL (0.55-1.30); GLOMERULAR FILTRATION RATE > 60.0 (>60); GLUCOSE, FASTING 196 MG/DL (60-100); SODIUM LEVEL 140 MMOL/L (136-145); TOTAL PROTEIN 7.2 G/DL (5.7-8.2)
[2023-11-18] MEDS: NS 1,000 ML IV ONE (18:19)
[2023-11-18 18:28] VITALS: BP 120/68; TEMP 98.1; O2SAT 96
== END 2023-11-18 18:30 | disposition home or self-care (01) ==
LOC: M ED 15:06
DX: R11.10 Vomiting, unspecified (principal); E11.9 Type 2 diabetes mellitus without complications; I10 Essential (primary) hypertension; Z79.4 Long term (current) use of insulin; Z79.899 Other long term (current) drug therapy

== ENCOUNTER 2023-12-31 11:30 | Emergency (ER) | payer OTHER ==
[~2023-12-31] VITALS: Ht 175.3 cm; Wt 115.9 kg
[2023-12-31] MEDS ORDERED: DULA3PEN (11:53)
[2023-12-31 12:27] LABS: VENOUS BASE EXCESS -0.5 (-2.0-2.0); VENOUS HCO3 24.4 MMOL/L (23.0-27.0); VENOUS O2 SATURATION 86.8 % (60.0-80.0); VENOUS PARTIAL PRESSURE CO2 40.8 mmHg (38.0-50.0); VENOUS PARTIAL PRESSURE O2 52.2 mmHg (30.0-50.0); VENOUS PH 7.394 UNITS (7.330-7.430); VENOUS STANDARD HCO3 23.8 MMOL/L; VENOUS TOTAL CO2 25.6 MMOL/L (24.0-28.0)
[2023-12-31 12:32] LABS: BASO % 0.3 % (0.0-1.0); EOS # 0.4 10^3/uL (0.0-0.5); EOS % 3.4 % (0.0-3.0); HEMATOCRIT 42.1 % (36.0-47.0); HEMOGLOBIN 14.2 g/dl (12.0-15.5); LYMPH # 1.5 10^3/uL (1.5-5.0); MEAN CORPUSCULAR HEMOGLOBIN 29.6 pg (27.0-33.0); MEAN CORPUSCULAR HGB CONC 33.7 g/dl (32.0-36.5); MEAN CORPUSCULAR VOLUME 87.9 fl (80.0-96.0); MONO # 0.8 10^3/uL (0.0-0.8); MONO % 7.4 % (2.0-8.0); NEUTROPHILS # 8.6 10^3/uL (1.5-8.5); NEUTROPHILS % 75.4 % (36.0-66.0); PLATELET COUNT, AUTOMATED 389 10^3/uL (150-450); RED BLOOD COUNT 4.79 10^6/uL (4.00-5.40); WHITE BLOOD COUNT 11.4 10^3/uL (4.0-10.0)
[2023-12-31 12:42] LABS: ERYTHROCYTE SEDIMENTATION RATE 87 mm/hr (0-20)
[2023-12-31 12:52] LABS: BLOOD UREA NITROGEN 8 MG/DL (9-23); CALCIUM LEVEL 9.2 MG/DL (8.5-10.1); CARBON DIOXIDE LEVEL 25 MMOL/L (20-31); CHLORIDE LEVEL 102 MMOL/L (98-107); CREATININE FOR GFR 0.52 MG/DL (0.55-1.30); GLOMERULAR FILTRATION RATE > 60.0 (>60); GLUCOSE, FASTING 378 MG/DL (60-100); POTASSIUM SERUM 3.9 MMOL/L (3.5-5.1); SODIUM LEVEL 133 MMOL/L (136-145)
[2023-12-31 12:58] LABS: HCG, SERUM QUALITATIVE NEGATIVE (NEGATIVE)
[2023-12-31 15:22] VITALS: BP 139/89; TEMP 97.6; O2SAT 98
== END 2023-12-31 16:25 | disposition home or self-care (01) ==
LOC: M ED 11:30 → EDBD 11:30 → M ED 16:25
DX: S91.101A Unspecified open wound of right great toe without damage to nail, initial encounter (principal); X58.XXXA Exposure to other specified factors, initial encounter; Y92.9 Unspecified place or not applicable; Y93.9 Activity, unspecified; Y99.9 Unspecified external cause status; E11.9 Type 2 diabetes mellitus without complications; I10 Essential (primary) hypertension; F41.9 Anxiety disorder, unspecified; F32.A Depression, unspecified; Z79.4 Long term (current) use of insulin; Z79.899 Other long term (current) drug therapy

== ENCOUNTER 2024-01-05 15:00 | Inpatient (IN) | payer OTHER, MEDICAID ==
[~2024-01-05] VITALS: Ht 177.8 cm; Wt 116.1 kg
[~2024-01-05 15:00] MED LIST changes: +DULA3PEN SC; -FARX1TAB3; +FARX1TAB3 PO; +LORA-1041 PO; -VITA200032; +VITA200032 PO
[2024-01-05 15:47] LABS: VENOUS BASE EXCESS 2.4 (-2.0-2.0); VENOUS HCO3 26.8 MMOL/L (23.0-27.0); VENOUS O2 SATURATION 51.3 % (60.0-80.0); VENOUS PARTIAL PRESSURE CO2 40.9 mmHg (38.0-50.0); VENOUS PARTIAL PRESSURE O2 25.6 mmHg (30.0-50.0); VENOUS PH 7.434 UNITS (7.330-7.430); VENOUS STANDARD HCO3 25.4 MMOL/L
[2024-01-05] MEDS: NS 1,000 ML IV ONE ×2 (15:48→18:44)
[2024-01-05] MEDS: ONDANSETRON 4MG 2ML VIAL IV ONE (15:48)
[2024-01-05 15:53] LABS: BASO % 0.2 % (0.0-1.0); EOS % 0.2 % (0.0-3.0); HEMOGLOBIN 12.3 g/dl (12.0-15.5); LYMPH # 1.2 10^3/uL (1.5-5.0); LYMPH % 7.3 % (24.0-44.0); MEAN CORPUSCULAR HEMOGLOBIN 29.8 pg (27.0-33.0); MEAN CORPUSCULAR HGB CONC 34.2 g/dl (32.0-36.5); MEAN CORPUSCULAR VOLUME 87.2 fl (80.0-96.0); MONO # 1.1 10^3/uL (0.0-0.8); MONO % 6.5 % (2.0-8.0); NEUTROPHILS # 13.7 10^3/uL (1.5-8.5); PLATELET COUNT, AUTOMATED 405 10^3/uL (150-450); RED BLOOD COUNT 4.13 10^6/uL (4.00-5.40); WHITE BLOOD COUNT 16.1 10^3/uL (4.0-10.0)
[2024-01-05 16:20] LABS: ALBUMIN 2.8 G/DL (3.2-5.2); ALKALINE PHOSPHATASE 80 U/L (46-116); ALT/SGPT 14 U/L (7.0-40); AST/SGOT 11 U/L (<34); BILIRUBIN,DIRECT 0.3 MG/DL (<0.4); BILIRUBIN,TOTAL 0.8 MG/DL (0.3-1.2); BLOOD UREA NITROGEN 7 MG/DL (9-23); CALCIUM LEVEL 9.1 MG/DL (8.5-10.1); CARBON DIOXIDE LEVEL 28 MMOL/L (20-31); CHLORIDE LEVEL 98 MMOL/L (98-107); CREATININE FOR GFR 0.57 MG/DL (0.55-1.30); GLOMERULAR FILTRATION RATE > 60.0 (>60); GLUCOSE, FASTING 382 MG/DL (60-100); MAGNESIUM LEVEL 1.8 MG/DL (1.8-2.4); POTASSIUM SERUM 4.1 MMOL/L (3.5-5.1); SODIUM LEVEL 134 MMOL/L (136-145); TOTAL PROTEIN 7.7 G/DL (5.7-8.2)
[2024-01-05 16:25] LABS: ACETONE/KETONE 1.41 MMOL/L (0.02-0.27)
[2024-01-05 16:27] LABS: PROCALCITONIN 0.27 ng/ml
[2024-01-05 16:31] LABS: ERYTHROCYTE SEDIMENTATION RATE 101 mm/hr (0-20)
[2024-01-05] MEDS ORDERED: VANCOMYCIN HCL 2,000 MG in D5W 500 ML IV ONE (16:40)
[2024-01-05 16:43] LABS: HEMOGLOBIN A1c 9.4 % (4.0-6.0)
[2024-01-05] MEDS: PIPERACILLIN/TAZOBACTAM SOD 3.375 GM in D5W MINI-BAG PLUS 50 ML IV ONE (17:36)
[2024-01-05] MEDS ORDERED: DEXTROSE 50% 50ML SYRINGE IV PRN (18:05)
[2024-01-05] MEDS ORDERED: GLUCAGON INJ 1MG VIAL SC PRN (18:05)
[2024-01-05] MEDS ORDERED: VANCOMYCIN HCL 1,000 MG, VIAL MATE ADAPTER 1 EACH in D5W 250 ML IV SCH (18:05)
[2024-01-05] MEDS ORDERED: GLUCOSE 4 GM CHEW PO PRN (18:05)
[2024-01-05] MEDS ORDERED: FLON1SPR NARES (18:39)
[2024-01-05] MEDS ORDERED: HOME MED LIST COMPLETE! XX SCH (18:40)
[2024-01-05] MEDS: VANCOMYCIN HCL 1,000 MG, VIAL MATE ADAPTER 1 EACH in D5W 250 ML IV ONE ×2 (18:41→20:06)
[2024-01-05] MEDS ORDERED: ACETAMINOPHEN TAB 650MG DOSE (2X325MG) PO PRN (19:30)
[2024-01-05] MEDS ORDERED: KETOROLAC 30 MG/ML 1ML VIAL IV PRN (20:30)
[2024-01-05] MEDS: NS 1,000 ML IV SCH (20:58)
[2024-01-05] MEDS: INSULIN LISPRO (NovoLOG) PER UNIT SC SCH (21:00)
[2024-01-05] MEDS: DOCUSATE SODIUM 100MG CAPSULE PO SCH (21:00)
[2024-01-05] MEDS: ONDANSETRON 4MG ORAL DISINTEGRATING TAB PO PRN (21:01)
[2024-01-05] MEDS: LEVEMIR (INSULIN DETEMIR) 1 UNITS/0.01ML SC SCH (21:01)
[2024-01-05] MEDS: PIPERACILLIN/TAZOBACTAM SOD 3.375 GM in D5W MINI-BAG PLUS 50 ML IV SCH (22:45)
[2024-01-06 00:45] VITALS: BP 155/93; TEMP 97.7; O2SAT 98
[2024-01-06 01:02] VITALS: BP 157/86; TEMP 100.8; O2SAT 98
[2024-01-06] MEDS: VANCOMYCIN HCL 750 MG, VIAL MATE ADAPTER 1 EACH in D5W 250 ML IV SCH (02:34)
[2024-01-06] MEDS: VANCOMYCIN HCL 500 MG in D5W MINI-BAG PLUS 100 ML IV SCH (02:34)
[2024-01-06 04:00] VITALS: BP 157/93; TEMP 97.7; O2SAT 98
[2024-01-06 07:26] LABS: BASO % 0.2 % (0.0-1.0); EOS # 0.1 10^3/uL (0.0-0.5); EOS % 0.5 % (0.0-3.0); HEMOGLOBIN 11.8 g/dl (12.0-15.5); LYMPH # 1.6 10^3/uL (1.5-5.0); LYMPH % 10.9 % (24.0-44.0); MEAN CORPUSCULAR HEMOGLOBIN 29.6 pg (27.0-33.0); MEAN CORPUSCULAR HGB CONC 33.7 g/dl (32.0-36.5); MEAN CORPUSCULAR VOLUME 87.9 fl (80.0-96.0); MONO % 6.5 % (2.0-8.0); NEUTROPHILS # 11.9 10^3/uL (1.5-8.5); PLATELET COUNT, AUTOMATED 372 10^3/uL (150-450); RED BLOOD COUNT 3.98 10^6/uL (4.00-5.40); WHITE BLOOD COUNT 14.7 10^3/uL (4.0-10.0)
[2024-01-06] MEDS ORDERED: INSULIN LISPRO (NovoLOG) PER UNIT SC SCH ×2 (07:30)
[2024-01-06 08:02] LABS: BLOOD UREA NITROGEN 9 MG/DL (9-23); CALCIUM LEVEL 8.3 MG/DL (8.5-10.1); CARBON DIOXIDE LEVEL 26 MMOL/L (20-31); CHLORIDE LEVEL 99 MMOL/L (98-107); CREATININE FOR GFR 0.95 MG/DL (0.55-1.30); GLOMERULAR FILTRATION RATE > 60.0 (>60); GLUCOSE, FASTING 418 MG/DL (60-100); POTASSIUM SERUM 3.8 MMOL/L (3.5-5.1); SODIUM LEVEL 133 MMOL/L (136-145)
[2024-01-06] MEDS: INSULIN LISPRO (NovoLOG) PER UNIT SC SCH ×2 (08:43→08:44)
[2024-01-06] MEDS: LEVEMIR (INSULIN DETEMIR) 1 UNITS/0.01ML SC SCH (08:43)
[2024-01-06] MEDS: ENOXAPARIN 40MG/0.4ML SYRINGE (J1650 PER 10MG) SC SCH (08:44)
[2024-01-06] MEDS: KETOROLAC 30 MG/ML 1ML VIAL IV PRN (08:51)
[2024-01-06 12:00] VITALS: TEMP 97.5; O2SAT 97
[2024-01-06 13:01] LABS: VANCOMYCIN RANDOM 20.2 UG/ML
[2024-01-06] MEDS: VANCOMYCIN HCL 1,000 MG, VIAL MATE ADAPTER 1 EACH in D5W 250 ML IV SCH (13:11)
[2024-01-06 19:44] LABS: HCG, SERUM QUALITATIVE NEGATIVE (NEGATIVE)
[2024-01-06 20:45] VITALS: BP 153/91; TEMP 97.9; O2SAT 98
[2024-01-07] VITALS (10 sets, daily range): BP systolic 131–147; BP diastolic 77–90; TEMP 97.2–97.9; O2SAT 96–99
[2024-01-07] MEDS: METOCLOPRAMIDE 10MG TAB PO PRN (00:28)
[2024-01-07 07:16] LABS: BASO % 0.2 % (0.0-1.0); EOS # 0.2 10^3/uL (0.0-0.5); EOS % 1.2 % (0.0-3.0); HEMATOCRIT 33.8 % (36.0-47.0); HEMOGLOBIN 11.3 g/dl (12.0-15.5); LYMPH # 1.3 10^3/uL (1.5-5.0); LYMPH % 10.6 % (24.0-44.0); MEAN CORPUSCULAR HEMOGLOBIN 29.6 pg (27.0-33.0); MEAN CORPUSCULAR HGB CONC 33.4 g/dl (32.0-36.5); MEAN CORPUSCULAR VOLUME 88.5 fl (80.0-96.0); MONO # 0.8 10^3/uL (0.0-0.8); MONO % 6.2 % (2.0-8.0); NEUTROPHILS # 10.1 10^3/uL (1.5-8.5); PLATELET COUNT, AUTOMATED 395 10^3/uL (150-450); RED BLOOD COUNT 3.82 10^6/uL (4.00-5.40); WHITE BLOOD COUNT 12.5 10^3/uL (4.0-10.0)
[2024-01-07 07:27] LABS: CALCIUM LEVEL 8.4 MG/DL (8.5-10.1); CREATININE FOR GFR 1.2 MG/DL (0.55-1.30); GLOMERULAR FILTRATION RATE 57.4 (>60); POTASSIUM SERUM 3.4 MMOL/L (3.5-5.1)
[2024-01-07] MEDS ORDERED: fentaNYL 100 MCG/2 ML INJECTION As Ordered ONE (08:18)
[2024-01-07] MEDS ORDERED: MIDAZOLAM INJ 2MG/2ML VIAL As Ordered ONE (08:18)
[2024-01-07] MEDS ORDERED: propofoL 200 MG/20 ML VIAL As Ordered ONE (08:20)
[2024-01-07] MEDS ORDERED: LIDOCAINE 2% 100MG/5ML SDV (FOR ANES.) As Ordered ONE (08:22)
[2024-01-07] MEDS ORDERED: METOCLOPRAMIDE INJ 10MG/2ML VIAL As Ordered ONE (08:24)
[2024-01-07] MEDS ORDERED: ONDANSETRON 4MG 2ML VIAL As Ordered ONE (08:24)
[2024-01-07] MEDS ORDERED: ROCURONIUM BROMIDE 50MG/5ML VIAL As Ordered ONE (08:37)
[2024-01-07] MEDS ORDERED: ACETAMINOPHEN 1000MG 100ML IV BAG As Ordered ONE (08:53)
[2024-01-07] MEDS ORDERED: SUGAMMADEX SODIUM 500 MG/5 ML VIAL (BRIDION) As Ordered ONE (09:06)
[2024-01-07] MEDS ORDERED: SEVOFLURANE INHAL SOLN 250 ML BTL As Ordered ONE (09:34)
[2024-01-07] MEDS ORDERED: GLUCOSE 4 GM CHEW PO PRN (09:45)
[2024-01-07] MEDS ORDERED: ONDANSETRON 4MG 2ML VIAL IV PRN (09:45)
[2024-01-07] MEDS ORDERED: fentaNYL 100 MCG/2 ML INJECTION IV PRN (09:45)
[2024-01-07] MEDS ORDERED: GLUCAGON INJ 1MG VIAL SC PRN (09:45)
[2024-01-07] MEDS ORDERED: DEXTROSE 50% 50ML SYRINGE IV PRN (09:45)
[2024-01-07] MEDS ORDERED: oxyCODONE 5MG TAB PO PRN (09:45)
[2024-01-07] MEDS ORDERED: HYDROMORPHONE HCL 0.5 MG/ 0.5 ML SYRINGE IV PRN (09:45)
[2024-01-07] MEDS: INSULIN LISPRO (NovoLOG) PER UNIT SC PRN (10:05)
[2024-01-07] MEDS: PANTOPRAZOLE 40MG VIAL IV SCH (10:50)
[2024-01-07] MEDS: POTASSIUM CHLORIDE 10MEQ SR TABLET PO ONE (10:50)
[2024-01-07] MEDS: VANCOMYCIN HCL 1,000 MG, VIAL MATE ADAPTER 1 EACH in D5W 250 ML IV SCH (17:51)
[2024-01-07] MEDS: ONDANSETRON 4MG 2ML VIAL IV PRN (20:00)
[2024-01-08] MEDS: KETOROLAC 30 MG/ML 1ML VIAL IV PRN (04:08)
[2024-01-08 04:59] VITALS: BP 152/95; TEMP 97.7; O2SAT 97
[2024-01-08 06:07] LABS: BASO % 0.2 % (0.0-1.0); EOS # 0.2 10^3/uL (0.0-0.5); EOS % 1.5 % (0.0-3.0); HEMOGLOBIN 10.4 g/dl (12.0-15.5); LYMPH # 1.6 10^3/uL (1.5-5.0); LYMPH % 11.9 % (24.0-44.0); MEAN CORPUSCULAR HEMOGLOBIN 29.8 pg (27.0-33.0); MEAN CORPUSCULAR HGB CONC 33.5 g/dl (32.0-36.5); MEAN CORPUSCULAR VOLUME 88.8 fl (80.0-96.0); MONO # 0.8 10^3/uL (0.0-0.8); MONO % 6.4 % (2.0-8.0); NEUTROPHILS # 10.3 10^3/uL (1.5-8.5); PLATELET COUNT, AUTOMATED 360 10^3/uL (150-450); RED BLOOD COUNT 3.49 10^6/uL (4.00-5.40); WHITE BLOOD COUNT 13.1 10^3/uL (4.0-10.0)
[2024-01-08 06:48] LABS: CALCIUM LEVEL 8.1 MG/DL (8.5-10.1); CREATININE FOR GFR 1.32 MG/DL (0.55-1.30); GLOMERULAR FILTRATION RATE 51.4 (>60); POTASSIUM SERUM 3.8 MMOL/L (3.5-5.1)
[2024-01-08] MEDS ORDERED: MORPHINE 2 MG/ML 1ML VIAL IV PRN (07:10)
[2024-01-08 08:00] VITALS: BP 150/90; TEMP 97.3; O2SAT 98
[2024-01-08] MEDS ORDERED: PERCOCET 5MG/325MG TAB PO PRN ×2 (11:00)
[2024-01-08] MEDS ORDERED: IPRATROPIUM 0.5MG/ALBUTEROL 2.5MG INH SOL UD 3ML (DUONEB) NEB PRN (11:05)
[2024-01-08 11:24] VITALS: BP 157/90
[2024-01-08] MEDS: amLODIPine 5 MG TAB PO SCH (11:24)
[2024-01-08 12:00] VITALS: BP 142/82; TEMP 97.5; O2SAT 98
[2024-01-08] MEDS ORDERED: DOXY-440 PO (13:38)
[2024-01-08] MEDS ORDERED: AMOX875T2 PO (13:38)
[2024-01-08] MEDS ORDERED: AMLO1TAB24 PO (13:50)
== END 2024-01-08 14:00 | disposition left against medical advice (07) | DRG 710 ==
LOC: M ED 15:00 → M ED INP 18:04 → M MS5PR 01-06 00:55
PROVIDERS: ADMIT Internal Medicine Nephrology; ATTEND Internal Medicine
PROC: 0Y6P0Z0 Detachment at Right 1st Toe, Complete, Open Approach (ICD-10-PCS; principal; 2024-01-07 08:30)
DX: A41.9 Sepsis, unspecified organism (principal); I96 Gangrene, not elsewhere classified; N17.9 Acute kidney failure, unspecified; E10.621 Type 1 diabetes mellitus with foot ulcer; E10.69 Type 1 diabetes mellitus with other specified complication; L97.519 Non-pressure chronic ulcer of other part of right foot with unspecified severity; E10.65 Type 1 diabetes mellitus with hyperglycemia; L02.611 Cutaneous abscess of right foot; M86.9 Osteomyelitis, unspecified; I10 Essential (primary) hypertension; E66.9 Obesity, unspecified; J45.909 Unspecified asthma, uncomplicated; F41.9 Anxiety disorder, unspecified; Z79.4 Long term (current) use of insulin; Z79.899 Other long term (current) drug therapy; Z68.36 Body mass index [BMI] 36.0-36.9, adult

== ENCOUNTER → 2024-01-11 | Outpatient (REF) | payer OTHER ==
[~2024-01-11] MED LIST changes: +AMLO1TAB24 PO; +AMOX875T2 PO; +DOXY-440 PO; +FLON1SPR NARES
[2024-01-11 18:49] LABS: BLOOD UREA NITROGEN < 5 MG/DL (9-23); CALCIUM LEVEL 9.7 MG/DL (8.5-10.1); CARBON DIOXIDE LEVEL 27 MMOL/L (20-31); CHLORIDE LEVEL 102 MMOL/L (98-107); CREATININE FOR GFR 1.11 MG/DL (0.55-1.30); GLOMERULAR FILTRATION RATE > 60.0 (>60); GLUCOSE, FASTING 365 MG/DL (60-100); POTASSIUM SERUM 3.6 MMOL/L (3.5-5.1); SODIUM LEVEL 137 MMOL/L (136-145)
== END ==
LOC: M LAB REF 16:28
PROVIDERS: ATTEND Nurse Practitioner Family
DX: E11.65 Type 2 diabetes mellitus with hyperglycemia (principal)

== ENCOUNTER → 2024-01-22 | Outpatient (CLI) | payer OTHER | LOC: M SOG 08:14 | PROVIDERS: ATTEND Physician Assistant | DX: M86.171 Other acute osteomyelitis, right ankle and foot (principal); Z89.411 Acquired absence of right great toe ==

== ENCOUNTER 2024-01-28 12:51 | Inpatient (IN) | payer OTHER ==
[~2024-01-28] VITALS: Ht 175.3 cm; Wt 117.0 kg
[2024-01-28] MEDS: NS 1,000 ML IV ONE (13:10)
[2024-01-28 13:30] LABS: VENOUS BASE EXCESS 5.5 (-2.0-2.0); VENOUS HCO3 28.9 MMOL/L (23.0-27.0); VENOUS O2 SATURATION 87.9 % (60.0-80.0); VENOUS PARTIAL PRESSURE CO2 37.9 mmHg (38.0-50.0); VENOUS PARTIAL PRESSURE O2 50.3 mmHg (30.0-50.0); VENOUS STANDARD HCO3 29.2 MMOL/L; VENOUS TOTAL CO2 30.1 MMOL/L (24.0-28.0)
[2024-01-28 13:35] LABS: BASO % 0.3 % (0.0-1.0); EOS # 0.5 10^3/uL (0.0-0.5); EOS % 3.6 % (0.0-3.0); HEMATOCRIT 36.5 % (36.0-47.0); HEMOGLOBIN 12.8 g/dl (12.0-15.5); LYMPH # 1.6 10^3/uL (1.5-5.0); LYMPH % 12.3 % (24.0-44.0); MEAN CORPUSCULAR HEMOGLOBIN 29.6 pg (27.0-33.0); MEAN CORPUSCULAR HGB CONC 35.1 g/dl (32.0-36.5); MEAN CORPUSCULAR VOLUME 84.3 fl (80.0-96.0); MONO # 0.9 10^3/uL (0.0-0.8); NEUTROPHILS # 9.5 10^3/uL (1.5-8.5); NEUTROPHILS % 75.5 % (36.0-66.0); PLATELET COUNT, AUTOMATED 405 10^3/uL (150-450); RED BLOOD COUNT 4.33 10^6/uL (4.00-5.40); WHITE BLOOD COUNT 12.6 10^3/uL (4.0-10.0)
[2024-01-28 13:40] LABS: APPEARANCE, URINE CLEAR (CLEAR); BACTERIA, URINE AUTO NEGATIVE (NEGATIVE); BILIRUBIN, URINE AUTO NEGATIVE (NEGATIVE); BLOOD, URINE BLOOD 1+ (NEGATIVE); COLOR, URINE STRAW (YELLOW); GLUCOSE, URINE (UA) AUTO 3+ mg/dL (NEGATIVE); KETONE, URINE AUTO 1+ mg/dL (NEGATIVE); LEUKOCYTE ESTERASE, URINE AUTO NEGATIVE (NEGATIVE); NITRITE, URINE AUTO NEGATIVE (NEGATIVE); PROTEIN, URINE AUTO 1+ mg/dL (NEGATIVE); RBC, URINE AUTO 6 /HPF (0-3); SPECIFIC GRAVITY URINE AUTO 1.023 (1.002-1.035); SQUAMOUS EPITHELIAL CELL UR AU 2 /HPF (0-6); UROBILINOGEN, URINE AUTO 0.2 mg/dL (0.0-2.0); WBC, URINE AUTO 4 /HPF (0-3)
[2024-01-28 13:44] LABS: ERYTHROCYTE SEDIMENTATION RATE 121 mm/hr (0-20)
[2024-01-28 14:06] LABS: LIPASE 41 U/L (12-53)
[2024-01-28 14:58] LABS: OSMOLALITY SERUM 300 MOSM/KG (275-295)
[2024-01-28 15:02] LABS: PROCALCITONIN 0.27 ng/ml
[2024-01-28 15:04] LABS: ALBUMIN 2.8 G/DL (3.2-5.2); ALKALINE PHOSPHATASE 80 U/L (46-116); ALT/SGPT 12 U/L (7.0-40); AST/SGOT 11 U/L (<34); BILIRUBIN,DIRECT 0.2 MG/DL (<0.4); BILIRUBIN,TOTAL 0.5 MG/DL (0.3-1.2); BLOOD UREA NITROGEN 7 MG/DL (9-23); CALCIUM LEVEL 8.9 MG/DL (8.5-10.1); CARBON DIOXIDE LEVEL 29 MMOL/L (20-31); CHLORIDE LEVEL 91 MMOL/L (98-107); CREATININE FOR GFR 0.71 MG/DL (0.55-1.30); GLOMERULAR FILTRATION RATE > 60.0 (>60); GLUCOSE, FASTING 469 MG/DL (60-100); MAGNESIUM LEVEL 1.2 MG/DL (1.8-2.4); POTASSIUM SERUM 3.5 MMOL/L (3.5-5.1); SODIUM LEVEL 127 MMOL/L (136-145); TOTAL PROTEIN 7.6 G/DL (5.7-8.2)
[2024-01-28] MEDS: MAG SULF 1GM/100ML (MAG RUN) 1 GM in IV 1 EA IV ONE (15:35)
[2024-01-28] MEDS ORDERED: HOME MED LIST COMPLETE! XX SCH (15:40)
[2024-01-28] MEDS ORDERED: DEXTROSE 50% 50ML SYRINGE IV PRN (16:10)
[2024-01-28] MEDS ORDERED: MAALOX 30 ML SUSP *UDC PO PRN (16:10)
[2024-01-28] MEDS ORDERED: VANCOMYCIN HCL 1,000 MG, VIAL MATE ADAPTER 1 EACH in D5W 250 ML IV SCH (16:10)
[2024-01-28] MEDS ORDERED: MOM 30ML SUSPENSION UDC PO PRN (16:10)
[2024-01-28] MEDS ORDERED: GLUCAGON INJ 1MG VIAL SC PRN (16:10)
[2024-01-28] MEDS ORDERED: GLUCOSE 4 GM CHEW PO PRN (16:10)
[2024-01-28] MEDS: NS 1,000 ML IV SCH (16:10)
[2024-01-28] MEDS ORDERED: ALBUTEROL SULFATE 2.5MG/0.5ML INH NEB SOLN INH PRN (16:25)
[2024-01-28] MEDS: INSULIN LISPRO (NovoLOG) PER UNIT SC SCH ×2 (17:30→22:29)
[2024-01-28] MEDS: VANCOMYCIN HCL 1,000 MG, VIAL MATE ADAPTER 1 EACH in D5W 250 ML IV ONE ×2 (18:00→18:06)
[2024-01-28 20:11] LABS: HEMOGLOBIN A1c 12.6 % (4.0-6.0)
[2024-01-28 21:55] VITALS: BP 137/81; TEMP 98; O2SAT 95
[2024-01-28] MEDS: DOCUSATE SODIUM 100MG CAPSULE PO SCH (22:23)
[2024-01-28] MEDS: LEVEMIR (INSULIN DETEMIR) 1 UNITS/0.01ML SC SCH (22:23)
[2024-01-28] MEDS: PIPERACILLIN/TAZOBACTAM SOD 3.375 GM in D5W MINI-BAG PLUS 50 ML IV SCH (22:24)
[2024-01-28 23:49] VITALS: BP 137/88; TEMP 98.3; O2SAT 96
[2024-01-29] VITALS: BP 137/88; TEMP 98.3; O2SAT 96
[2024-01-29] MEDS: VANCOMYCIN HCL 750 MG, VIAL MATE ADAPTER 1 EACH in D5W 250 ML IV SCH ×2 (00:30→14:15)
[2024-01-29] MEDS: ACETAMINOPHEN TAB 650MG DOSE (2X325MG) PO PRN (01:11)
[2024-01-29] MEDS: VANCOMYCIN HCL 500 MG in D5W MINI-BAG PLUS 100 ML IV SCH ×2 (01:49→12:39)
[2024-01-29 05:19] VITALS: BP 136/86; TEMP 97.3; O2SAT 95
[2024-01-29] MEDS: ENOXAPARIN 40MG/0.4ML SYRINGE (J1650 PER 10MG) SC SCH (09:00)
[2024-01-29] MEDS: VITAMIN D 1,000 INTERNATIONAL UNITS TABLET PO SCH (09:23)
[2024-01-29] MEDS: LORATADINE 10 MG TAB PO SCH (09:23)
[2024-01-29] MEDS: FLUTICASONE PROP 0.05% NASAL SPRAY 16 GM (FLONASE) NARES SCH (09:24)
[2024-01-29 09:27] LABS: VANCOMYCIN LEVEL TROUGH 19.7 UG/ML (10.0-20.0)
[2024-01-29 09:31] LABS: ALBUMIN 2.6 G/DL (3.2-5.2); ALKALINE PHOSPHATASE 80 U/L (46-116); ALT/SGPT 10 U/L (7.0-40); AST/SGOT 9 U/L (<34); BILIRUBIN,TOTAL 0.4 MG/DL (0.3-1.2); BLOOD UREA NITROGEN < 5 MG/DL (9-23); CALCIUM LEVEL 8.5 MG/DL (8.5-10.1); CARBON DIOXIDE LEVEL 30 MMOL/L (20-31); CHLORIDE LEVEL 98 MMOL/L (98-107); CREATININE FOR GFR 0.81 MG/DL (0.55-1.30); GLOMERULAR FILTRATION RATE > 60.0 (>60); GLUCOSE, FASTING 349 MG/DL (60-100); MAGNESIUM LEVEL 1.4 MG/DL (1.8-2.4); POTASSIUM SERUM 3.5 MMOL/L (3.5-5.1); SODIUM LEVEL 135 MMOL/L (136-145); TOTAL PROTEIN 7.2 G/DL (5.7-8.2)
[2024-01-29] MEDS ORDERED: VANCOMYCIN HCL 750 MG, VIAL MATE ADAPTER 1 EACH in NS 250 ML IV SCH ×2 (10:00→13:55)
[2024-01-29] MEDS ORDERED: KETOROLAC 60MG 2ML VIAL As Ordered ONE (10:41)
[2024-01-29] MEDS ORDERED: propofoL 200 MG/20 ML VIAL As Ordered ONE (10:41)
[2024-01-29] MEDS ORDERED: LIDOCAINE 2% 100MG/5ML SDV (FOR ANES.) As Ordered ONE (10:41)
[2024-01-29] MEDS ORDERED: fentaNYL 100 MCG/2 ML INJECTION As Ordered ONE (10:42)
[2024-01-29] MEDS ORDERED: MIDAZOLAM INJ 2MG/2ML VIAL As Ordered ONE (10:42)
[2024-01-29] MEDS: INSULIN LISPRO (NovoLOG) PER UNIT SC PRN (11:20)
[2024-01-29] MEDS: INSULIN LISPRO (NovoLOG) PER UNIT As Ordered ONE (11:20)
[2024-01-29] MEDS: LIDOCAINE 1% SDV 30ML VIAL As Ordered ONE (11:29)
[2024-01-29 12:00] VITALS: BP 130/80; TEMP 97; O2SAT 99
[2024-01-29 12:40] VITALS: BP 133/83; TEMP 97; O2SAT 100
[2024-01-29] MEDS ORDERED: VANCOMYCIN HCL 500 MG in NS 100 ML IV SCH (13:56)
[2024-01-29 16:00] VITALS: BP 162/84; TEMP 97.3; O2SAT 99
[2024-01-29] MEDS: MAG SULF 1GM/100ML (MAG RUN) IV SCH (16:17)
[2024-01-29 19:56] VITALS: BP 165/97; TEMP 99.9; O2SAT 96
[2024-01-29] MEDS: VANCOMYCIN HCL 750 MG, VIAL MATE ADAPTER 1 EACH in NS 250 ML IV SCH (21:58)
[2024-01-29] MEDS: VANCOMYCIN HCL 500 MG in NS 100 ML IV SCH (23:32)
[2024-01-30 04:07] VITALS: BP 139/80; TEMP 97.1; O2SAT 97
[2024-01-30 07:52] VITALS: BP 131/85; TEMP 97.6; O2SAT 97
[2024-01-30 09:16] LABS: ALBUMIN 2.3 G/DL (3.2-5.2); ALKALINE PHOSPHATASE 83 U/L (46-116); ALT/SGPT < 9 U/L (7.0-40); AST/SGOT 9 U/L (<34); BILIRUBIN,TOTAL 0.3 MG/DL (0.3-1.2); BLOOD UREA NITROGEN 10 MG/DL (9-23); CALCIUM LEVEL 8.7 MG/DL (8.5-10.1); CARBON DIOXIDE LEVEL 23 MMOL/L (20-31); CHLORIDE LEVEL 98 MMOL/L (98-107); CREATININE FOR GFR 2.11 MG/DL (0.55-1.30); GLOMERULAR FILTRATION RATE 29.9 (>60); GLUCOSE, FASTING 448 MG/DL (60-100); MAGNESIUM LEVEL 1.7 MG/DL (1.8-2.4); POTASSIUM SERUM 3.7 MMOL/L (3.5-5.1); SODIUM LEVEL 131 MMOL/L (136-145); TOTAL PROTEIN 6.6 G/DL (5.7-8.2)
[2024-01-30 10:54] LABS: VANCOMYCIN LEVEL TROUGH 29.5 UG/ML (10.0-20.0)
[2024-01-30 12:00] VITALS: BP 159/92; TEMP 97; O2SAT 98
[2024-01-30] MEDS: NS 1,000 ML IV SCH (12:11)
[2024-01-30 12:21] LABS: HEMATOCRIT 34.1 % (36.0-47.0); HEMOGLOBIN 11.7 g/dl (12.0-15.5); MEAN CORPUSCULAR HEMOGLOBIN 29.4 pg (27.0-33.0); MEAN CORPUSCULAR HGB CONC 34.3 g/dl (32.0-36.5); MEAN CORPUSCULAR VOLUME 85.7 fl (80.0-96.0); PLATELET COUNT, AUTOMATED 406 10^3/uL (150-450); RED BLOOD COUNT 3.98 10^6/uL (4.00-5.40); WHITE BLOOD COUNT 13.2 10^3/uL (4.0-10.0)
[2024-01-30] MEDS ORDERED: cefTRIAXone SOD 1 GM in D5W MINI-BAG PLUS 50 ML IV SCH (13:10)
[2024-01-30] MEDS: metroNIDAZOLE (FLAGYL) 500MG TABLET PO SCH (14:00)
[2024-01-30] MEDS ORDERED: HEPARIN SOD (PORCINE) 5000UNITS/ML 1ML VIAL/SYRINGE SQ SCH (14:00)
[2024-01-30] MEDS: cefTRIAXone SOD 2 GM in D5W MINI-BAG PLUS 50 ML IV SCH (15:29)
[2024-01-30 15:59] VITALS: BP 139/80; TEMP 97.5; O2SAT 98
[2024-01-30] MEDS: INSULIN LISPRO (NovoLOG) PER UNIT SC SCH (17:30)
[2024-01-30 20:42] VITALS: BP 151/81; TEMP 98.9; O2SAT 97
[2024-01-30 20:54] LABS: CALCIUM LEVEL 9.1 MG/DL (8.5-10.1); CREATININE FOR GFR 2.62 MG/DL (0.55-1.30); GLOMERULAR FILTRATION RATE 23.3 (>60); POTASSIUM SERUM 3.6 MMOL/L (3.5-5.1)
[2024-01-30] MEDS: LEVEMIR (INSULIN DETEMIR) 1 UNITS/0.01ML SC SCH (21:09)
[2024-01-31 04:00] VITALS: BP 165/99; TEMP 97; O2SAT 97
[2024-01-31] MEDS: HEPARIN SOD (PORCINE) 5000UNITS/ML 1ML VIAL/SYRINGE SQ SCH (05:22)
[2024-01-31 05:58] LABS: BASO # 0.1 10^3/uL (0.0-0.2); BASO % 0.7 % (0.0-1.0); EOS # 0.8 10^3/uL (0.0-0.5); EOS % 6.9 % (0.0-3.0); HEMATOCRIT 31.1 % (36.0-47.0); HEMOGLOBIN 10.3 g/dl (12.0-15.5); LYMPH # 1.7 10^3/uL (1.5-5.0); LYMPH % 15.4 % (24.0-44.0); MEAN CORPUSCULAR HGB CONC 33.1 g/dl (32.0-36.5); MEAN CORPUSCULAR VOLUME 87.6 fl (80.0-96.0); MONO # 0.7 10^3/uL (0.0-0.8); MONO % 5.9 % (2.0-8.0); NEUTROPHILS # 7.3 10^3/uL (1.5-8.5); NEUTROPHILS % 66.6 % (36.0-66.0); PLATELET COUNT, AUTOMATED 398 10^3/uL (150-450); RED BLOOD COUNT 3.55 10^6/uL (4.00-5.40)
[2024-01-31 06:22] LABS: CALCIUM LEVEL 8.7 MG/DL (8.5-10.1); CREATININE FOR GFR 2.71 MG/DL (0.55-1.30); GLOMERULAR FILTRATION RATE 22.4 (>60); MAGNESIUM LEVEL 1.4 MG/DL (1.8-2.4); POTASSIUM SERUM 3.4 MMOL/L (3.5-5.1)
[2024-01-31] MEDS: MAG SULF 1GM/100ML (MAG RUN) 1 GM in IV 1 EA IV SCH (06:56)
[2024-01-31] MEDS: POTASSIUM CHLORIDE 10MEQ SR TABLET PO ONE (06:56)
[2024-01-31 08:00] VITALS: BP 167/92; TEMP 97.1; O2SAT 98
[2024-01-31 12:00] VITALS: BP 144/90; TEMP 97.2; O2SAT 98
[2024-01-31] MEDS: INSULIN LISPRO (NovoLOG) PER UNIT SC SCH (18:14)
[2024-01-31 19:57] VITALS: BP 167/99; TEMP 97.6; O2SAT 98
[2024-01-31 21:12] VITALS: BP 155/65
[2024-01-31] MEDS: LEVEMIR (INSULIN DETEMIR) 1 UNITS/0.01ML SC SCH (21:22)
[2024-01-31] MEDS: ONDANSETRON 4MG 2ML VIAL IV ONE (22:26)
[2024-02-01 00:58] VITALS: BP 170/96; TEMP 98.4; O2SAT 98
[2024-02-01] MEDS: METOCLOPRAMIDE INJ 10MG/2ML VIAL IV ONE (01:20)
[2024-02-01] MEDS: hydrALAZINE 20MG/ML 1ML VIAL IV ONE (01:52)
[2024-02-01 03:16] VITALS: BP 153/85; TEMP 98.4; O2SAT 95
[2024-02-01 05:56] LABS: BASO # 0.1 10^3/uL (0.0-0.2); BASO % 0.5 % (0.0-1.0); EOS # 0.6 10^3/uL (0.0-0.5); HEMATOCRIT 31.7 % (36.0-47.0); HEMOGLOBIN 10.3 g/dl (12.0-15.5); LYMPH # 1.6 10^3/uL (1.5-5.0); LYMPH % 13.8 % (24.0-44.0); MEAN CORPUSCULAR HEMOGLOBIN 28.2 pg (27.0-33.0); MEAN CORPUSCULAR HGB CONC 32.5 g/dl (32.0-36.5); MEAN CORPUSCULAR VOLUME 86.8 fl (80.0-96.0); MONO # 0.6 10^3/uL (0.0-0.8); MONO % 5.5 % (2.0-8.0); NEUTROPHILS # 8.5 10^3/uL (1.5-8.5); NEUTROPHILS % 72.3 % (36.0-66.0); PLATELET COUNT, AUTOMATED 443 10^3/uL (150-450); RED BLOOD COUNT 3.65 10^6/uL (4.00-5.40); WHITE BLOOD COUNT 11.7 10^3/uL (4.0-10.0)
[2024-02-01] MEDS: ONDANSETRON 4MG 2ML VIAL IV ONE (06:16)
[2024-02-01 06:18] LABS: CALCIUM LEVEL 8.8 MG/DL (8.5-10.1); CREATININE FOR GFR 2.48 MG/DL (0.55-1.30); GLOMERULAR FILTRATION RATE 24.8 (>60); MAGNESIUM LEVEL 1.6 MG/DL (1.8-2.4); POTASSIUM SERUM 3.8 MMOL/L (3.5-5.1)
[2024-02-01] MEDS: ONDANSETRON 4MG 2ML VIAL IV PRN (08:24)
[2024-02-01 08:34] VITALS: BP 162/77; TEMP 97.4; O2SAT 89
[2024-02-01] MEDS: MAG SULF 1GM/100ML (MAG RUN) 1 GM in IV 1 EA IV SCH (10:06)
[2024-02-01 12:00] VITALS: BP 138/64
[2024-02-01] MEDS: METOCLOPRAMIDE INJ 10MG/2ML VIAL IV SCH (16:59)
[2024-02-01] MEDS: metroNIDAZOLE 500 MG in IV 1 EA IV SCH (16:59)
[2024-02-01 20:26] VITALS: BP 162/91; TEMP 97.9; O2SAT 97
[2024-02-01] MEDS: LEVEMIR (INSULIN DETEMIR) 1 UNITS/0.01ML SC SCH (21:11)
[2024-02-01] MEDS: LINEZOLID 600 MG in IV 1 EA IV SCH (21:12)
[2024-02-02 03:36] VITALS: BP 146/74; TEMP 97.5; O2SAT 95
[2024-02-02 05:46] LABS: BASO % 0.3 % (0.0-1.0); EOS # 0.4 10^3/uL (0.0-0.5); HEMOGLOBIN 10.3 g/dl (12.0-15.5); LYMPH # 1.5 10^3/uL (1.5-5.0); LYMPH % 12.3 % (24.0-44.0); MEAN CORPUSCULAR HEMOGLOBIN 28.4 pg (27.0-33.0); MEAN CORPUSCULAR HGB CONC 32.2 g/dl (32.0-36.5); MEAN CORPUSCULAR VOLUME 88.2 fl (80.0-96.0); MONO # 0.8 10^3/uL (0.0-0.8); MONO % 6.4 % (2.0-8.0); NEUTROPHILS # 9.5 10^3/uL (1.5-8.5); NEUTROPHILS % 76.1 % (36.0-66.0); PLATELET COUNT, AUTOMATED 451 10^3/uL (150-450); RED BLOOD COUNT 3.63 10^6/uL (4.00-5.40); WHITE BLOOD COUNT 12.5 10^3/uL (4.0-10.0)
[2024-02-02 06:18] LABS: CALCIUM LEVEL 8.9 MG/DL (8.5-10.1); CREATININE FOR GFR 2.25 MG/DL (0.55-1.30); GLOMERULAR FILTRATION RATE 27.8 (>60); MAGNESIUM LEVEL 1.5 MG/DL (1.8-2.4); POTASSIUM SERUM 3.6 MMOL/L (3.5-5.1)
[2024-02-02 08:00] VITALS: BP 176/84; TEMP 97.4; O2SAT 94
[2024-02-02 10:25] VITALS: BP 154/76
[2024-02-02] MEDS ORDERED: NOVOINJ3 SC (10:39)
[2024-02-02] MEDS ORDERED: BASA100I SC (10:39)
[2024-02-02] MEDS ORDERED: ZYVO1TAB PO (10:47)
[2024-02-02] MEDS ORDERED: NORV5TAB PO (10:47)
[2024-02-02] MEDS ORDERED: CEFD1CAP9 PO (10:47)
[2024-02-02] MEDS: MAG SULF 1GM/100ML (MAG RUN) 1 GM in IV 1 EA IV SCH (11:53)
[2024-02-02 11:54] VITALS: BP 154/76
[2024-02-02] MEDS: amLODIPine 5 MG TAB PO ONE (11:54)
[2024-02-02] MEDS ORDERED: RA M500C PO (11:59)
[2024-02-02 16:00] VITALS: BP 164/80; TEMP 98; O2SAT 96
[2024-02-02] MEDS: CEFDINIR 300 MG CAP (OMNICEF) PO SCH (16:58)
[2024-02-02] MEDS ORDERED: LINEZOLID 600MG TABLET (ZYVOX) PO SCH (21:00)
== END 2024-02-02 17:54 | disposition home or self-care (01) | DRG 314 ==
LOC: M ED 12:51 → M ED INP 16:06 → EEVIPCON 16:06 → M PCU 21:50
PROVIDERS: ADMIT Internal Medicine; ATTEND Internal Medicine
PROC: 0Y6R0Z0 Detachment at Right 2nd Toe, Complete, Open Approach (ICD-10-PCS; principal; 2024-01-29 11:00)
DX: E10.69 Type 1 diabetes mellitus with other specified complication (principal); N17.9 Acute kidney failure, unspecified; M86.171 Other acute osteomyelitis, right ankle and foot; E10.52 Type 1 diabetes mellitus with diabetic peripheral angiopathy with gangrene; E10.40 Type 1 diabetes mellitus with diabetic neuropathy, unspecified; E10.65 Type 1 diabetes mellitus with hyperglycemia; L97.519 Non-pressure chronic ulcer of other part of right foot with unspecified severity; K76.0 Fatty (change of) liver, not elsewhere classified; E66.9 Obesity, unspecified; E87.6 Hypokalemia; F41.9 Anxiety disorder, unspecified; I10 Essential (primary) hypertension; J45.909 Unspecified asthma, uncomplicated; Z68.38 Body mass index [BMI] 38.0-38.9, adult; Z79.4 Long term (current) use of insulin; Z79.899 Other long term (current) drug therapy; E55.9 Vitamin D deficiency, unspecified; E10.621 Type 1 diabetes mellitus with foot ulcer

== ENCOUNTER → 2024-02-07 | Outpatient (REF) | payer OTHER ==
[~2024-02-07] MED LIST changes: +CEFD1CAP9 PO; +GABA-1172; -GABA-282; +NORV5TAB PO; +RA M500C PO; +ZYVO1TAB PO
[2024-02-07 17:38] LABS: BASO # 0.1 10^3/uL (0.0-0.2); BASO % 0.6 % (0.0-1.0); EOS # 0.4 10^3/uL (0.0-0.5); EOS % 3.5 % (0.0-3.0); HEMATOCRIT 39.9 % (36.0-47.0); HEMOGLOBIN 12.7 g/dl (12.0-15.5); LYMPH # 1.7 10^3/uL (1.5-5.0); LYMPH % 13.9 % (24.0-44.0); MEAN CORPUSCULAR HEMOGLOBIN 29.1 pg (27.0-33.0); MEAN CORPUSCULAR HGB CONC 31.8 g/dl (32.0-36.5); MEAN CORPUSCULAR VOLUME 91.3 fl (80.0-96.0); MONO # 0.6 10^3/uL (0.0-0.8); MONO % 5.2 % (2.0-8.0); NEUTROPHILS # 9.4 10^3/uL (1.5-8.5); NEUTROPHILS % 76.1 % (36.0-66.0); PLATELET COUNT, AUTOMATED 504 10^3/uL (150-450); RED BLOOD COUNT 4.37 10^6/uL (4.00-5.40); WHITE BLOOD COUNT 12.4 10^3/uL (4.0-10.0)
[2024-02-07 18:14] LABS: C REACTIVE PROTEIN QUANTITATIV 0.6 MG/DL (<1.0)
[2024-02-07 18:16] LABS: CALCIUM LEVEL 10.3 MG/DL (8.5-10.1); CREATININE FOR GFR 1.98 MG/DL (0.55-1.30); GLOMERULAR FILTRATION RATE 32.2 (>60); POTASSIUM SERUM 4.8 MMOL/L (3.5-5.1)
== END ==
LOC: M LAB REF 16:16
PROVIDERS: ATTEND Nurse Practitioner Family
DX: Z89.429 Acquired absence of other toe(s), unspecified side (principal); E11.8 Type 2 diabetes mellitus with unspecified complications

== ENCOUNTER → 2024-02-12 | Outpatient (REF) | payer OTHER ==
[2024-02-12 16:51] LABS: BASO # 0.1 10^3/uL (0.0-0.2); BASO % 0.7 % (0.0-1.0); EOS # 0.1 10^3/uL (0.0-0.5); EOS % 1.2 % (0.0-3.0); HEMATOCRIT 42.6 % (36.0-47.0); HEMOGLOBIN 13.9 g/dl (12.0-15.5); LYMPH # 1.6 10^3/uL (1.5-5.0); LYMPH % 13.6 % (24.0-44.0); MEAN CORPUSCULAR HEMOGLOBIN 28.8 pg (27.0-33.0); MEAN CORPUSCULAR HGB CONC 32.6 g/dl (32.0-36.5); MEAN CORPUSCULAR VOLUME 88.2 fl (80.0-96.0); MONO # 0.6 10^3/uL (0.0-0.8); MONO % 5.1 % (2.0-8.0); NEUTROPHILS # 9.1 10^3/uL (1.5-8.5); NEUTROPHILS % 78.9 % (36.0-66.0); PLATELET COUNT, AUTOMATED 416 10^3/uL (150-450); RED BLOOD COUNT 4.83 10^6/uL (4.00-5.40); WHITE BLOOD COUNT 11.5 10^3/uL (4.0-10.0)
[2024-02-12 16:52] LABS: C REACTIVE PROTEIN QUANTITATIV < 0.40 MG/DL (<1.0)
[2024-02-12 16:53] LABS: BLOOD UREA NITROGEN 22 MG/DL (9-23); CALCIUM LEVEL 10.3 MG/DL (8.5-10.1); CARBON DIOXIDE LEVEL 30 MMOL/L (20-31); CHLORIDE LEVEL 94 MMOL/L (98-107); CREATININE FOR GFR 1.48 MG/DL (0.55-1.30); GLUCOSE, FASTING 284 MG/DL (60-100); MAGNESIUM LEVEL 1.4 MG/DL (1.8-2.4); POTASSIUM SERUM 4.9 MMOL/L (3.5-5.1); SODIUM LEVEL 134 MMOL/L (136-145)
[2024-02-12 17:24] LABS: HEMOGLOBIN A1c 11.6 % (4.0-6.0)
== END ==
LOC: M LAB REF 16:15
PROVIDERS: ATTEND Nurse Practitioner Family
DX: S91.301A Unspecified open wound, right foot, initial encounter (principal); Z89.411 Acquired absence of right great toe; Z89.421 Acquired absence of other right toe(s); Z87.39 Personal history of other diseases of the musculoskeletal system and connective tissue; E11.65 Type 2 diabetes mellitus with hyperglycemia; E10.69 Type 1 diabetes mellitus with other specified complication; W18.30XA Fall on same level, unspecified, initial encounter; Y92.009 Unspecified place in unspecified non-institutional (private) residence as the place of occurrence of the external cause

== ENCOUNTER → 2024-03-03 | Outpatient (CLI) | payer OTHER ==
[2024-03-03 13:13] LABS: BASO % 0.3 % (0.0-1.0); EOS # 0.4 10^3/uL (0.0-0.5); EOS % 3.5 % (0.0-3.0); HEMATOCRIT 37.8 % (36.0-47.0); HEMOGLOBIN 12.5 g/dl (12.0-15.5); LYMPH # 1.6 10^3/uL (1.5-5.0); LYMPH % 13.6 % (24.0-44.0); MEAN CORPUSCULAR HGB CONC 33.1 g/dl (32.0-36.5); MEAN CORPUSCULAR VOLUME 87.7 fl (80.0-96.0); MONO # 0.7 10^3/uL (0.0-0.8); MONO % 5.9 % (2.0-8.0); NEUTROPHILS # 8.8 10^3/uL (1.5-8.5); NEUTROPHILS % 75.8 % (36.0-66.0); PLATELET COUNT, AUTOMATED 478 10^3/uL (150-450); RED BLOOD COUNT 4.31 10^6/uL (4.00-5.40); WHITE BLOOD COUNT 11.7 10^3/uL (4.0-10.0)
[2024-03-03 13:19] LABS: BLOOD UREA NITROGEN 15 MG/DL (9-23); CALCIUM LEVEL 9.7 MG/DL (8.5-10.1); CARBON DIOXIDE LEVEL 25 MMOL/L (20-31); CHLORIDE LEVEL 104 MMOL/L (98-107); CREATININE FOR GFR 0.81 MG/DL (0.55-1.30); GLOMERULAR FILTRATION RATE > 60.0 (>60); GLUCOSE, FASTING 304 MG/DL (60-100); POTASSIUM SERUM 4.6 MMOL/L (3.5-5.1); SODIUM LEVEL 136 MMOL/L (136-145)
[2024-03-03 13:27] LABS: ERYTHROCYTE SEDIMENTATION RATE 83 mm/hr (0-20)
== END ==
LOC: M PLALAB 09:37
PROVIDERS: ATTEND Internal Medicine Infectious Disease
DX: M86.171 Other acute osteomyelitis, right ankle and foot (principal); E11.621 Type 2 diabetes mellitus with foot ulcer; L97.512 Non-pressure chronic ulcer of other part of right foot with fat layer exposed

== ENCOUNTER 2024-03-10 15:58 | Emergency (ER) | payer OTHER ==
[~2024-03-10] VITALS: Ht 177.8 cm; Wt 107.8 kg
[2024-03-10 16:43] LABS: VENOUS BASE EXCESS -1.6 (-2.0-2.0); VENOUS HCO3 19.8 MMOL/L (23.0-27.0); VENOUS O2 SATURATION 96.6 % (60.0-80.0); VENOUS PARTIAL PRESSURE CO2 25.4 mmHg (38.0-50.0); VENOUS PARTIAL PRESSURE O2 76.9 mmHg (30.0-50.0); VENOUS STANDARD HCO3 23.2 MMOL/L; VENOUS TOTAL CO2 20.6 MMOL/L (24.0-28.0)
[2024-03-10 16:48] LABS: BASO % 0.2 % (0.0-1.0); EOS % 0.3 % (0.0-3.0); HEMOGLOBIN 13.2 g/dl (12.0-15.5); LYMPH # 0.7 10^3/uL (1.5-5.0); LYMPH % 4.6 % (24.0-44.0); MEAN CORPUSCULAR HEMOGLOBIN 28.5 pg (27.0-33.0); MEAN CORPUSCULAR HGB CONC 34.7 g/dl (32.0-36.5); MEAN CORPUSCULAR VOLUME 82.1 fl (80.0-96.0); MONO # 0.9 10^3/uL (0.0-0.8); MONO % 5.9 % (2.0-8.0); NEUTROPHILS % 88.4 % (36.0-66.0); PLATELET COUNT, AUTOMATED 397 10^3/uL (150-450); RED BLOOD COUNT 4.63 10^6/uL (4.00-5.40); WHITE BLOOD COUNT 15.9 10^3/uL (4.0-10.0)
[2024-03-10 17:09] LABS: HEMOGLOBIN A1c 11.1 % (4.0-6.0)
[2024-03-10 17:14] LABS: LIPASE 48 U/L (12-53)
[2024-03-10 17:16] LABS: ACETONE/KETONE 0.62 MMOL/L (0.02-0.27)
[2024-03-10 17:24] LABS: OSMOLALITY SERUM 294 MOSM/KG (275-295)
[2024-03-10 17:27] LABS: ALBUMIN 3.5 G/DL (3.2-5.2); ALKALINE PHOSPHATASE 110 U/L (35-104); ALT/SGPT 14 U/L (7.0-40); AST/SGOT 16 U/L (<34); BILIRUBIN,DIRECT 0.2 MG/DL (<0.4); BILIRUBIN,TOTAL 0.6 MG/DL (0.3-1.2); BLOOD UREA NITROGEN 10 MG/DL (9-23); CALCIUM LEVEL 10.3 MG/DL (8.5-10.1); CARBON DIOXIDE LEVEL 21 MMOL/L (20-31); CHLORIDE LEVEL 94 MMOL/L (98-107); CREATININE FOR GFR 0.82 MG/DL (0.55-1.30); GLOMERULAR FILTRATION RATE > 60.0 (>60); GLUCOSE, FASTING 420 MG/DL (60-100); POTASSIUM SERUM 3.8 MMOL/L (3.5-5.1); SODIUM LEVEL 131 MMOL/L (136-145); TOTAL PROTEIN 8.5 G/DL (5.7-8.2)
[2024-03-10] MEDS: ACETAMINOPHEN 500 MG TAB PO ONE (17:53)
[2024-03-10] MEDS: NS 1,000 ML IV ONE (17:53)
[2024-03-10] MEDS ORDERED: DULA4.5P INJ (19:19)
[2024-03-10] MEDS ORDERED: MAGN500T2 PO (19:19)
[2024-03-10] MEDS ORDERED: AMLO1TAB24 PO (19:19)
[2024-03-10] MEDS ORDERED: HOME MED LIST COMPLETE! XX SCH (19:20)
[2024-03-10] MEDS: cefTRIAXone SOD 2 GM in DEXTROSE 5% (D5W) ADV/MINI-BAG 50 ML IV ONE (19:21)
[2024-03-10] MEDS: HumuLIN R (REGULAR) INSULIN (NovoLIN R) **100U/ML** PER UNIT IV ONE (19:21)
[2024-03-10] MEDS: VANCOMYCIN/WATER FOR INJ (PEG) 2,000 MG in IV 1 EA IV ONE (19:41)
[2024-03-10 19:47] VITALS: TEMP 100.1
[2024-03-10 21:00] VITALS: BP 142/74; O2SAT 98
== END 2024-03-10 21:15 | disposition left against medical advice (07) ==
LOC: EDBD 15:58 → M ED 15:58
DX: M86.171 Other acute osteomyelitis, right ankle and foot (principal); R00.0 Tachycardia, unspecified; E10.9 Type 1 diabetes mellitus without complications; I10 Essential (primary) hypertension; J45.909 Unspecified asthma, uncomplicated; Z79.4 Long term (current) use of insulin; Z79.899 Other long term (current) drug therapy; Z53.9 Procedure and treatment not carried out, unspecified reason
CPT/HCPCS: 36415; 71045; 73630; 80048; 80076; 82010; 82803; 83036; 83605; 83690; 83930; 85025; 85652; 86140; 87040; 87077; 87154; 87186; 87486; 87581; 87633; 87798; 93005; 93041; 94760; 96361; 96365; 96366; 96375; 99285; J0696; J1815; J3372

== ENCOUNTER → 2024-03-18 | Outpatient (REF) | payer OTHER ==
[~2024-03-18] MED LIST changes: +DULA4.5P INJ; +MAGN500T2 PO
== END ==
LOC: M SFHCWOUN 13:17
PROVIDERS: ATTEND Surgery
DX: L97.512 Non-pressure chronic ulcer of other part of right foot with fat layer exposed (principal)

== ENCOUNTER → 2024-04-08 | Outpatient (REF) | payer OTHER ==
[2024-04-08 18:11] LABS: BASO # 0.1 10^3/uL (0.0-0.2); BASO % 0.6 % (0.0-1.0); EOS # 0.4 10^3/uL (0.0-0.5); HEMATOCRIT 37.2 % (36.0-47.0); LYMPH # 1.6 10^3/uL (1.5-5.0); LYMPH % 19.9 % (24.0-44.0); MEAN CORPUSCULAR HEMOGLOBIN 27.9 pg (27.0-33.0); MEAN CORPUSCULAR HGB CONC 32.3 g/dl (32.0-36.5); MEAN CORPUSCULAR VOLUME 86.5 fl (80.0-96.0); MONO # 0.6 10^3/uL (0.0-0.8); MONO % 7.1 % (2.0-8.0); NEUTROPHILS # 5.4 10^3/uL (1.5-8.5); NEUTROPHILS % 66.9 % (36.0-66.0); PLATELET COUNT, AUTOMATED 355 10^3/uL (150-450)
[2024-04-08 18:53] LABS: BLOOD UREA NITROGEN 18 MG/DL (9-23); CALCIUM LEVEL 10.2 MG/DL (8.5-10.1); CARBON DIOXIDE LEVEL 23 MMOL/L (20-31); CHLORIDE LEVEL 100 MMOL/L (98-107); CREATININE FOR GFR 0.63 MG/DL (0.55-1.30); GLOMERULAR FILTRATION RATE > 60.0 (>60); GLUCOSE, FASTING 418 MG/DL (60-100); MAGNESIUM LEVEL 1.5 MG/DL (1.8-2.4); POTASSIUM SERUM 4.7 MMOL/L (3.5-5.1); SODIUM LEVEL 134 MMOL/L (136-145)
== END ==
LOC: M LAB REF 16:41
PROVIDERS: ATTEND Nurse Practitioner Family
DX: S91.301A Unspecified open wound, right foot, initial encounter (principal); Z87.39 Personal history of other diseases of the musculoskeletal system and connective tissue; Z89.411 Acquired absence of right great toe; Z89.421 Acquired absence of other right toe(s); E83.42 Hypomagnesemia; Y93.9 Activity, unspecified; Y92.9 Unspecified place or not applicable

== ENCOUNTER → 2024-04-23 | Outpatient (REF) | payer OTHER ==
[2024-04-23 13:47] LABS: HEMOGLOBIN A1c 10.2 % (4.0-6.0)
== END ==
LOC: M LAB REF 11:29
PROVIDERS: ATTEND Surgery
DX: E11.621 Type 2 diabetes mellitus with foot ulcer (principal)

== ENCOUNTER → 2024-05-22 | Outpatient (REF) | payer OTHER ==
[2024-05-22 18:22] LABS: HCG, SERUM QUALITATIVE NEGATIVE (NEGATIVE)
== END ==
LOC: M LAB REF 16:43
PROVIDERS: ATTEND Nurse Practitioner Family
DX: N92.5 Other specified irregular menstruation (principal)

== ENCOUNTER 2024-06-07 21:00 | Emergency (ER) | payer OTHER ==
[~2024-06-07] VITALS: Ht 175.3 cm; Wt 121.1 kg
[2024-06-07 21:02] VITALS: TEMP 97.5; O2SAT 99
[2024-06-07 21:34] LABS: BASO % 0.5 % (0.0-1.0); EOS # 0.3 10^3/uL (0.0-0.5); EOS % 4.1 % (0.0-3.0); HEMATOCRIT 38.4 % (36.0-47.0); HEMOGLOBIN 12.9 g/dl (12.0-15.5); LYMPH # 1.4 10^3/uL (1.5-5.0); LYMPH % 22.5 % (24.0-44.0); MEAN CORPUSCULAR HEMOGLOBIN 28.5 pg (27.0-33.0); MEAN CORPUSCULAR HGB CONC 33.6 g/dl (32.0-36.5); MEAN CORPUSCULAR VOLUME 84.8 fl (80.0-96.0); MONO # 0.4 10^3/uL (0.0-0.8); MONO % 6.9 % (2.0-8.0); NEUTROPHILS % 65.7 % (36.0-66.0); RED BLOOD COUNT 4.53 10^6/uL (4.00-5.40); WHITE BLOOD COUNT 6.1 10^3/uL (4.0-10.0)
[2024-06-07 21:50] VITALS: BP 122/92
[2024-06-07 22:01] LABS: LIPASE 57 U/L (12-53)
[2024-06-07 22:14] LABS: ALBUMIN 3.3 G/DL (3.2-5.2); ALKALINE PHOSPHATASE 100 U/L (35-104); ALT/SGPT 29 U/L (7.0-40); AST/SGOT 27 U/L (<34); BILIRUBIN,DIRECT < 0.1 MG/DL (<0.4); BILIRUBIN,TOTAL 0.2 MG/DL (0.3-1.2); BLOOD UREA NITROGEN 16 MG/DL (9-23); CALCIUM LEVEL 8.5 MG/DL (8.5-10.1); CARBON DIOXIDE LEVEL 21 MMOL/L (20-31); CHLORIDE LEVEL 102 MMOL/L (98-107); CREATININE FOR GFR 0.65 MG/DL (0.55-1.30); GLOMERULAR FILTRATION RATE > 60.0 (>60); GLUCOSE, FASTING 403 MG/DL (60-100); POTASSIUM SERUM 4.1 MMOL/L (3.5-5.1); SODIUM LEVEL 136 MMOL/L (136-145); TOTAL PROTEIN 7.1 G/DL (5.7-8.2)
== END 2024-06-08 02:05 | disposition left against medical advice (07) ==
LOC: M ED 21:00
DX: Z53.21 Procedure and treatment not carried out due to patient leaving prior to being seen by health care provider (principal)

== ENCOUNTER → 2024-07-07 | Outpatient (REF) | payer OTHER ==
[2024-07-07 18:38] LABS: CHOLESTEROL RISK RATIO 5.5 (<5); HDL CHOLESTEROL 50.1 MG/DL (>40); LDL CHOLESTEROL 169.9 MG/DL (<100); NON-HDL-C 225.9 MG/DL
[2024-07-07 18:41] LABS: THYROID STIMULATING HORMONE 1.629 uIU/ML (0.55-4.78)
[2024-07-07 18:55] LABS: HEMOGLOBIN A1c 12.3 % (4.0-6.0)
== END ==
LOC: M LAB REF 17:22
PROVIDERS: ATTEND Nurse Practitioner Family
DX: E11.65 Type 2 diabetes mellitus with hyperglycemia (principal); R63.5 Abnormal weight gain

== ENCOUNTER 2024-09-08 18:04 | Emergency (ER) | payer OTHER ==
[~2024-09-08] VITALS: Ht 175.3 cm; Wt 117.5 kg
[2024-09-09 06:39] LABS: BASO # 0.1 10^3/uL (0.0-0.2); BASO % 0.7 % (0.0-1.0); EOS # 0.4 10^3/uL (0.0-0.5); EOS % 4.5 % (0.0-3.0); HEMATOCRIT 39.2 % (36.0-47.0); HEMOGLOBIN 13.1 g/dl (12.0-15.5); LYMPH # 2.3 10^3/uL (1.5-5.0); LYMPH % 25.4 % (24.0-44.0); MEAN CORPUSCULAR HEMOGLOBIN 28.4 pg (27.0-33.0); MEAN CORPUSCULAR HGB CONC 33.4 g/dl (32.0-36.5); MEAN CORPUSCULAR VOLUME 84.8 fl (80.0-96.0); MONO # 0.7 10^3/uL (0.0-0.8); MONO % 7.6 % (2.0-8.0); NEUTROPHILS # 5.5 10^3/uL (1.5-8.5); NEUTROPHILS % 61.4 % (36.0-66.0); PLATELET COUNT, AUTOMATED 315 10^3/uL (150-450); RED BLOOD COUNT 4.62 10^6/uL (4.00-5.40); WHITE BLOOD COUNT 8.9 10^3/uL (4.0-10.0)
[2024-09-09 06:44] LABS: ERYTHROCYTE SEDIMENTATION RATE 85 mm/hr (0-20)
[2024-09-09 06:55] LABS: ALBUMIN 3.1 G/DL (3.2-5.2); ALKALINE PHOSPHATASE 91 U/L (35-104); ALT/SGPT 47 U/L (7.0-40); AST/SGOT 29 U/L (<34); BILIRUBIN,TOTAL 0.7 MG/DL (0.3-1.2); BLOOD UREA NITROGEN 11 MG/DL (9-23); C REACTIVE PROTEIN QUANTITATIV 2.67 MG/DL (<1.0); CALCIUM LEVEL 9.3 MG/DL (8.5-10.1); CARBON DIOXIDE LEVEL 26 MMOL/L (20-31); CHLORIDE LEVEL 100 MMOL/L (98-107); GLOMERULAR FILTRATION RATE > 90.0 (>60); GLUCOSE, FASTING 397 MG/DL (60-100); POTASSIUM SERUM 4.1 MMOL/L (3.5-5.1); SODIUM LEVEL 136 MMOL/L (136-145)
[2024-09-09] MEDS ORDERED: CLEO300C2 PO (07:06)
[2024-09-09] MEDS: HumuLIN R (REGULAR) INSULIN (NovoLIN R) **100U/ML** PER UNIT IV ONE (07:23)
[2024-09-09 07:25] VITALS: BP 136/88; TEMP 97.7; O2SAT 98
== END 2024-09-09 07:27 | disposition home or self-care (01) ==
LOC: M ED 18:04
DX: L03.031 Cellulitis of right toe (principal); E11.65 Type 2 diabetes mellitus with hyperglycemia; Z79.2 Long term (current) use of antibiotics; Z79.4 Long term (current) use of insulin; Z79.899 Other long term (current) drug therapy
CPT/HCPCS: 80053; 85025; 85652; 86140; 87070; 87077; 87186; 96374; 99284; J1815

== ENCOUNTER 2024-12-09 19:14 | Emergency (ER) | payer MEDICAID, OTHER, SELFPAY ==
[~2024-12-09] VITALS: Ht 175.3 cm; Wt 115.0 kg
[~2024-12-09 19:14] MED LIST changes: +CLEO300C2 PO
[2024-12-09 21:27] VITALS: TEMP 98.2
[2024-12-09] MEDS ORDERED: SULF1TAB23 PO (21:29)
[2024-12-09 21:42] VITALS: BP 134/88; O2SAT 97
[2024-12-09] MEDS: BACTRIM 160MG/800MG DS TAB PO ONE (21:44)
== END 2024-12-09 22:06 | disposition home or self-care (01) ==
LOC: M ED 19:14
DX: S91.301A Unspecified open wound, right foot, initial encounter (principal); Y92.9 Unspecified place or not applicable; Y93.9 Activity, unspecified; Y99.9 Unspecified external cause status; E11.9 Type 2 diabetes mellitus without complications; F17.290 Nicotine dependence, other tobacco product, uncomplicated; F10.10 Alcohol abuse, uncomplicated; Z79.2 Long term (current) use of antibiotics; Z79.4 Long term (current) use of insulin; Z79.899 Other long term (current) drug therapy

== ENCOUNTER 2025-01-14 16:27 | Emergency (ER) | payer OTHER, SELFPAY ==
[~2025-01-14] VITALS: Ht 175.3 cm; Wt 112.3 kg
[~2025-01-14 16:27] MED LIST changes: -IBUP-1022 PO; +IBUP600T42 PO
[2025-01-14 19:08] LABS: BASO # 0.1 10^3/uL (0.0-0.2); BASO % 0.7 % (0.0-1.0); EOS # 0.5 10^3/uL (0.0-0.5); EOS % 5.8 % (0.0-3.0); LYMPH # 2.0 10^3/uL (1.5-5.0); LYMPH % 22.6 % (24.0-44.0); MONO # 0.6 10^3/uL (0.0-0.8); MONO % 6.8 % (2.0-8.0); NEUTROPHILS # 5.6 10^3/uL (1.5-8.5); NEUTROPHILS % 63.8 % (36.0-66.0); PLATELET COUNT, AUTOMATED 343 10^3/uL (150-450)
[2025-01-14 19:30] LABS: C REACTIVE PROTEIN QUANTITATIV 0.73 MG/DL (<1.0)
[2025-01-14 19:36] LABS: HCG, SERUM QUALITATIVE NEGATIVE (NEGATIVE)
[2025-01-14] MEDS ORDERED: DOXY-442 PO (22:03)
[2025-01-14 22:12] VITALS: BP 132/83; TEMP 98.1; O2SAT 97
[2025-01-14] MEDS: DOXYCYCLINE HYCLATE 100 MG TABLET PO ONE (22:15)
== END 2025-01-14 22:17 | disposition home or self-care (01) ==
LOC: M ED 16:27
DX: S91.301A Unspecified open wound, right foot, initial encounter (principal); Y92.9 Unspecified place or not applicable; Y93.9 Activity, unspecified; Y99.9 Unspecified external cause status; E11.9 Type 2 diabetes mellitus without complications; I10 Essential (primary) hypertension; Z79.2 Long term (current) use of antibiotics; Z79.4 Long term (current) use of insulin; Z79.899 Other long term (current) drug therapy

== ENCOUNTER → 2025-02-17 | Outpatient (REF) | payer OTHER ==
[~2025-02-17] MED LIST changes: +DOXY-442 PO
[2025-02-17 18:17] LABS: CALCIUM LEVEL 9.7 MG/DL (8.5-10.1); CARBON DIOXIDE LEVEL 27 MMOL/L (20-31); CHLORIDE LEVEL 96 MMOL/L (98-107); CHOLESTEROL LEVEL 278 MG/DL (<200); CHOLESTEROL RISK RATIO 5.35 (<5); CREATININE FOR GFR 0.62 MG/DL (0.55-1.30); GLOMERULAR FILTRATION RATE > 90.0 (>60); LDL CHOLESTEROL 190.7 MG/DL (<100); NON-HDL-C 226.1 MG/DL; POTASSIUM SERUM 5.0 MMOL/L (3.5-5.1); SODIUM LEVEL 134 MMOL/L (136-145); TRIGLYCERIDES LEVEL 177 MG/DL (<150)
== END ==
LOC: M LAB REF 16:17
PROVIDERS: ATTEND Nurse Practitioner Family
DX: E11.65 Type 2 diabetes mellitus with hyperglycemia (principal); I10 Essential (primary) hypertension

== ENCOUNTER 2025-03-08 19:37 | Inpatient (IN) | payer OTHER ==
[~2025-03-08] VITALS: Ht 175.3 cm; Wt 116.9 kg
[2025-03-08] MEDS: ACETAMINOPHEN 325 MG TAB PO ONE (21:05)
[2025-03-08] MEDS: NS (Normal Saline) 0.9% 1,000 ML IV ONE (21:06)
[2025-03-08 21:12] LABS: BASO # 0.1 10^3/uL (0.0-0.2); BASO % 0.3 % (0.0-1.0); EOS # 0.3 10^3/uL (0.0-0.5); EOS % 1.4 % (0.0-3.0); LYMPH # 1.1 10^3/uL (1.5-5.0); LYMPH % 5.7 % (24.0-44.0); MONO # 1.2 10^3/uL (0.0-0.8); MONO % 6.2 % (2.0-8.0); NEUTROPHILS # 16.3 10^3/uL (1.5-8.5); NEUTROPHILS % 85.8 % (36.0-66.0); PLATELET COUNT, AUTOMATED 480 10^3/uL (150-450)
[2025-03-08 21:40] LABS: ALT/SGPT 22 U/L (7.0-40); AST/SGOT 21 U/L (<34); CALCIUM LEVEL 9.1 MG/DL (8.5-10.1); CARBON DIOXIDE LEVEL 21 MMOL/L (20-31); CHLORIDE LEVEL 104 MMOL/L (98-107); CREATININE FOR GFR 0.65 MG/DL (0.55-1.30); GLOMERULAR FILTRATION RATE > 90.0 (>60); POTASSIUM SERUM 4.0 MMOL/L (3.5-5.1); SODIUM LEVEL 138 MMOL/L (136-145)
[2025-03-08 21:48] LABS: C REACTIVE PROTEIN QUANTITATIV 10.74 MG/DL (<1.0)
[2025-03-08] MEDS: VANCOMYCIN HCL 2,000 MG, VIAL MATE ADAPTER 1 EACH in NS 500 ML IV ONE (22:28)
[2025-03-08] MEDS ORDERED: GLUCOSE 4 GM CHEW PO PRN (23:15)
[2025-03-08] MEDS ORDERED: GLUCAGON INJ 1 MG VIAL SC PRN (23:15)
[2025-03-08] MEDS ORDERED: MOM 30 ML SUSPENSION UDC PO PRN (23:15)
[2025-03-08] MEDS ORDERED: MAALOX 30 ML SUSP *UDC PO PRN (23:15)
[2025-03-08] MEDS ORDERED: DEXTROSE 50% 50 ML SYRINGE IV PRN (23:15)
[2025-03-09] MEDS ORDERED: FARX1TAB5 PO (00:53)
[2025-03-09] MEDS ORDERED: HOME MED LIST COMPLETE! XX SCH (00:55)
[2025-03-09] MEDS: VANCOMYCIN HCL 1,000 MG, VIAL MATE ADAPTER 1 EACH in NS 250 ML IV SCH (05:50)
[2025-03-09 06:41] LABS: CALCIUM LEVEL 8.1 MG/DL (8.5-10.1); CARBON DIOXIDE LEVEL 20 MMOL/L (20-31); CHLORIDE LEVEL 106 MMOL/L (98-107); CREATININE FOR GFR 0.57 MG/DL (0.55-1.30); GLOMERULAR FILTRATION RATE > 90.0 (>60); POTASSIUM SERUM 3.9 MMOL/L (3.5-5.1); SODIUM LEVEL 139 MMOL/L (136-145)
[2025-03-09 07:33] LABS: PLATELET COUNT, AUTOMATED 434 10^3/uL (150-450)
[2025-03-09] MEDS: INSULIN LISPRO (NovoLOG) PER UNIT SC SCH ×2 (08:31→20:16)
[2025-03-09] MEDS: DOCUSATE SODIUM 100 MG CAPSULE PO SCH (08:31)
[2025-03-09] MEDS: LanTUS (INSULIN GLARGINE INJ) 1 UNITS/0.01 ML SC SCH (08:31)
[2025-03-09] MEDS: amLODIPine 5 MG TAB PO SCH (08:32)
[2025-03-09] MEDS: ENOXAPARIN 40 MG/0.4 ML SYRINGE (J1650 PER 10MG) SC SCH (08:32)
[2025-03-09] MEDS: ACETAMINOPHEN 325 MG TAB PO PRN (08:32)
[2025-03-09 09:50] VITALS: BP 121/58; TEMP 97.8; O2SAT 95
[2025-03-09 11:48] VITALS: BP 132/79; TEMP 97.6; O2SAT 99
[2025-03-09] MEDS: LanTUS (INSULIN GLARGINE INJ) 1 UNITS/0.01 ML SC ONE (18:53)
[2025-03-09 20:00] VITALS: BP 157/77; TEMP 98.5; O2SAT 97
[2025-03-09] MEDS: VANCOMYCIN HCL 1,250 MG, VIAL MATE ADAPTER 1 EACH in NS 250 ML IV SCH (22:21)
[2025-03-10 04:00] VITALS: BP 136/79; TEMP 97.9; O2SAT 96
[2025-03-10 06:23] LABS: PLATELET COUNT, AUTOMATED 412 10^3/uL (150-450)
[2025-03-10 06:50] LABS: CALCIUM LEVEL 8.0 MG/DL (8.5-10.1); CARBON DIOXIDE LEVEL 23 MMOL/L (20-31); CHLORIDE LEVEL 105 MMOL/L (98-107); CREATININE FOR GFR 0.56 MG/DL (0.55-1.30); GLOMERULAR FILTRATION RATE > 90.0 (>60); POTASSIUM SERUM 4.2 MMOL/L (3.5-5.1); SODIUM LEVEL 137 MMOL/L (136-145)
[2025-03-10] MEDS: LanTUS (INSULIN GLARGINE INJ) 1 UNITS/0.01 ML SC SCH (09:22)
[2025-03-10 09:23] VITALS: BP 136/79
[2025-03-10] MEDS: INSULIN LISPRO (NovoLOG) PER UNIT SC SCH ×3 (09:23→17:30)
[2025-03-10 12:00] VITALS: BP 131/77; TEMP 98.5; O2SAT 98
[2025-03-10 13:37] LABS: VANCOMYCIN LEVEL TROUGH 15.0 UG/ML (10.0-20.0)
[2025-03-10] MEDS ORDERED: LINE1TAB6 PO (15:24)
[2025-03-10 15:51] LABS: C REACTIVE PROTEIN QUANTITATIV 13.23 MG/DL (<1.0)
[2025-03-10] MEDS: LINEZOLID 600 MG TABLET PO SCH (16:11)
[2025-03-10] MEDS ORDERED: NOVOINJ3 SC (16:26)
[2025-03-10] MEDS ORDERED: INSU100I16 SQ (16:26)
[2025-03-10] MEDS ORDERED: BASA100I SC (16:26)
[2025-03-11] MEDS ORDERED: LanTUS (INSULIN GLARGINE INJ) 1 UNITS/0.01 ML SC SCH (09:00)
== END 2025-03-10 18:30 | disposition home or self-care (01) | DRG 383 ==
LOC: M ED 19:37 → M ED INP 19:38 → M MS4PR 03-09 09:20 → OBSVTOIN 03-09 14:45
PROVIDERS: ADMIT Student in an Organized Health Care Education/Training Program; ATTEND Student in an Organized Health Care Education/Training Program
DX: L03.116 Cellulitis of left lower limb (principal); E11.42 Type 2 diabetes mellitus with diabetic polyneuropathy; E11.621 Type 2 diabetes mellitus with foot ulcer; E11.69 Type 2 diabetes mellitus with other specified complication; L97.519 Non-pressure chronic ulcer of other part of right foot with unspecified severity; L97.529 Non-pressure chronic ulcer of other part of left foot with unspecified severity; M86.9 Osteomyelitis, unspecified; I10 Essential (primary) hypertension; J45.909 Unspecified asthma, uncomplicated; F32.A Depression, unspecified; Z89.411 Acquired absence of right great toe; F17.200 Nicotine dependence, unspecified, uncomplicated; W54.8XXA Other contact with dog, initial encounter; Z79.4 Long term (current) use of insulin; Z79.899 Other long term (current) drug therapy; Z88.8 Allergy status to other drugs, medicaments and biological substances; E66.9 Obesity, unspecified; F41.9 Anxiety disorder, unspecified; Z68.38 Body mass index [BMI] 38.0-38.9, adult

== ENCOUNTER 2025-04-08 10:38 | Emergency (ER) | payer OTHER ==
[~2025-04-08] VITALS: Ht 175.3 cm; Wt 107.8 kg
[~2025-04-08 10:38] MED LIST changes: +FARX1TAB5 PO; +INSU100I16 SQ; -INSU100V19 SC; +INSURSDRX SC; -LABE100T6 PO; +LABE100T91 PO; +LINE1TAB6 PO; +SULF-7 PO; -SULF1TAB23 PO
[2025-04-08 12:02] LABS: BASO # 0.1 10^3/uL (0.0-0.2); BASO % 0.4 % (0.0-1.0); EOS # 0.2 10^3/uL (0.0-0.5); EOS % 1.7 % (0.0-3.0); LYMPH # 1.2 10^3/uL (1.5-5.0); LYMPH % 9.7 % (24.0-44.0); MONO # 0.7 10^3/uL (0.0-0.8); MONO % 5.9 % (2.0-8.0); NEUTROPHILS # 9.9 10^3/uL (1.5-8.5); NEUTROPHILS % 81.9 % (36.0-66.0); PLATELET COUNT, AUTOMATED 369 10^3/uL (150-450)
[2025-04-08 12:34] LABS: C REACTIVE PROTEIN QUANTITATIV 9.72 MG/DL (<1.0)
[2025-04-08 12:35] LABS: CALCIUM LEVEL 9.0 MG/DL (8.5-10.1); CARBON DIOXIDE LEVEL 24 MMOL/L (20-31); CHLORIDE LEVEL 101 MMOL/L (98-107); CREATININE FOR GFR 0.59 MG/DL (0.55-1.30); GLOMERULAR FILTRATION RATE > 90.0 (>60); POTASSIUM SERUM 4.5 MMOL/L (3.5-5.1); SODIUM LEVEL 137 MMOL/L (136-145)
[2025-04-08 12:58] LABS: HCG, SERUM QUALITATIVE NEGATIVE (NEGATIVE)
[2025-04-08 15:00] VITALS: TEMP 101.7
[2025-04-08] MEDS: ACETAMINOPHEN 325 MG TAB PO ONE (15:11)
[2025-04-08] MEDS: DALBAVANCIN 1,500 MG in D5W 250 ML IV ONE (16:42)
[2025-04-08 17:00] VITALS: BP 130/78; O2SAT 98
[2025-04-17] MEDS ORDERED: CEFD1CAP9 PO (12:39)
== END 2025-04-08 17:15 | disposition left against medical advice (07) ==
LOC: EDBD 10:38 → M ED 10:38
DX: M86.172 Other acute osteomyelitis, left ankle and foot (principal); R65.10 Systemic inflammatory response syndrome (SIRS) of non-infectious origin without acute organ dysfunction; S92.502A Displaced unspecified fracture of left lesser toe(s), initial encounter for closed fracture; R50.9 Fever, unspecified; E11.65 Type 2 diabetes mellitus with hyperglycemia; Y92.9 Unspecified place or not applicable; Y93.9 Activity, unspecified; Y99.9 Unspecified external cause status; Z88.8 Allergy status to other drugs, medicaments and biological substances; Z79.4 Long term (current) use of insulin; Z79.899 Other long term (current) drug therapy; Z53.9 Procedure and treatment not carried out, unspecified reason
CPT/HCPCS: 11042; 11043; 73630; 80048; 83605; 84703; 85025; 85652; 86140; 87040; 87077; 87154; 87186; 96365; 99215; 99284; J0875

== ENCOUNTER 2025-04-10 15:23 | Inpatient (IN) | payer OTHER ==
[~2025-04-10] VITALS: Ht 175.3 cm; Wt 106.6 kg
[2025-04-10] MEDS ORDERED: TRAM50TA2 PO (15:45)
[2025-04-10] MEDS ORDERED: DOXY100C3 PO (15:45)
[2025-04-10 17:52] LABS: BASO # 0.0 10^3/uL (0.0-0.2); BASO % 0.2 % (0.0-1.0); EOS # 0.2 10^3/uL (0.0-0.5); EOS % 1.5 % (0.0-3.0); LYMPH # 0.8 10^3/uL (1.5-5.0); LYMPH % 8.1 % (24.0-44.0); MONO # 0.8 10^3/uL (0.0-0.8); MONO % 7.6 % (2.0-8.0); NEUTROPHILS # 8.2 10^3/uL (1.5-8.5); NEUTROPHILS % 82.3 % (36.0-66.0); PLATELET COUNT, AUTOMATED 378 10^3/uL (150-450)
[2025-04-10] MEDS: VANCOMYCIN HCL 2,000 MG, VIAL MATE ADAPTER 1 EACH in NS 500 ML IV ONE (18:36)
[2025-04-10 19:11] LABS: ALT/SGPT 22 U/L (7.0-40); AST/SGOT 46 U/L (<34); C REACTIVE PROTEIN QUANTITATIV 11.05 MG/DL (<1.0); CALCIUM LEVEL 8.6 MG/DL (8.5-10.1); CARBON DIOXIDE LEVEL 26 MMOL/L (20-31); CHLORIDE LEVEL 96 MMOL/L (98-107); CREATININE FOR GFR 0.69 MG/DL (0.55-1.30); GLOMERULAR FILTRATION RATE > 90.0 (>60); POTASSIUM SERUM 5.9 MMOL/L (3.5-5.1); SODIUM LEVEL 132 MMOL/L (136-145)
[2025-04-10] MEDS: HumuLIN R (REGULAR) INSULIN (NovoLIN R) **100 U/ML** PER UNIT IV ONE (19:35)
[2025-04-10] MEDS ORDERED: ACET-897 PO ×2 (20:01→20:02)
[2025-04-10] MEDS ORDERED: HOME MED LIST COMPLETE! XX SCH (20:05)
[2025-04-10] MEDS ORDERED: DEXTROSE 50% 50 ML SYRINGE IV PRN (22:55)
[2025-04-10] MEDS ORDERED: GLUCAGON INJ 1 MG VIAL SC PRN (22:55)
[2025-04-10] MEDS ORDERED: traMADol 50 MG TAB PO PRN (22:55)
[2025-04-10] MEDS ORDERED: ACETAMINOPHEN 500 MG TAB PO PRN (22:55)
[2025-04-10] MEDS ORDERED: GLUCOSE 4 GM CHEW PO PRN (22:55)
[2025-04-10] MEDS ORDERED: IBUPROFEN 400 MG TAB PO PRN (23:10)
[2025-04-10] MEDS ORDERED: PERCOCET 5MG/325MG TAB PO PRN (23:10)
[2025-04-10] MEDS ORDERED: VANCOMYCIN HCL 1,000 MG, VIAL MATE ADAPTER 1 EACH in NS 250 ML IV SCH (23:20)
[2025-04-10] MEDS: ACETAMINOPHEN 500 MG TAB PO SCH (23:51)
[2025-04-10] MEDS: NS (Normal Saline) 0.9% 1,000 ML IV ONE (23:52)
[2025-04-11] MEDS ORDERED: ONDANSETRON 4MG/2ML VIAL IV PRN (00:55)
[2025-04-11 01:03] LABS: INR 1.15
[2025-04-11] MEDS ORDERED: PATIROMER SORBITEX CALCIUM 8.4GM POWDER PACKET PO ONE (01:55)
[2025-04-11] MEDS: VANCOMYCIN HCL 1,250 MG, VIAL MATE ADAPTER 1 EACH in NS 250 ML IV SCH ×2 (04:17→16:47)
[2025-04-11] MEDS: CEFEPIME HCL 2 GM in DEXTROSE 5% (D5W) ADV/MINI-BAG 50 ML IV SCH (06:41)
[2025-04-11 07:51] LABS: BASO # 0.0 10^3/uL (0.0-0.2); BASO % 0.4 % (0.0-1.0); EOS # 0.5 10^3/uL (0.0-0.5); EOS % 8.8 % (0.0-3.0); LYMPH # 1.0 10^3/uL (1.5-5.0); LYMPH % 18.9 % (24.0-44.0); MONO # 0.6 10^3/uL (0.0-0.8); MONO % 11.2 % (2.0-8.0); NEUTROPHILS # 3.3 10^3/uL (1.5-8.5); NEUTROPHILS % 60.2 % (36.0-66.0); PLATELET COUNT, AUTOMATED 318 10^3/uL (150-450)
[2025-04-11 08:26] LABS: C REACTIVE PROTEIN QUANTITATIV 7.62 MG/DL (<1.0)
[2025-04-11 08:28] LABS: CALCIUM LEVEL 8.4 MG/DL (8.5-10.1); CARBON DIOXIDE LEVEL 26 MMOL/L (20-31); CHLORIDE LEVEL 101 MMOL/L (98-107); CREATININE FOR GFR 0.76 MG/DL (0.55-1.30); GLOMERULAR FILTRATION RATE > 90.0 (>60); MAGNESIUM LEVEL 1.4 MG/DL (1.8-2.4); PHOSPHORUS LEVEL 3.5 MG/DL (2.5-4.9); POTASSIUM SERUM 4.2 MMOL/L (3.5-5.1); SODIUM LEVEL 137 MMOL/L (136-145)
[2025-04-11] MEDS: PANTOPRAZOLE 40MG VIAL IV SCH (10:20)
[2025-04-11] MEDS: HEPARIN SOD 5000 UNITS/ML 1 ML VIAL/SYRINGE SC SCH (10:20)
[2025-04-11] MEDS: amLODIPine 5 MG TAB PO SCH (10:21)
[2025-04-11] MEDS: MAG SULF 1GM/100ML (MAG RUN) 1 GM in IV 1 EA IV SCH (10:22)
[2025-04-11] MEDS: INSULIN LISPRO (NovoLOG) PER UNIT SC SCH ×3 (10:22→21:00)
[2025-04-11] MEDS: LanTUS (INSULIN GLARGINE INJ) 1 UNITS/0.01 ML SC SCH (10:24)
[2025-04-11 13:45] VITALS: BP 144/84; TEMP 97.1; O2SAT 99
[2025-04-11 20:00] VITALS: BP 142/76; TEMP 98.1; O2SAT 98
[2025-04-12] VITALS (7 sets, daily range): BP systolic 115–142; BP diastolic 58–91; TEMP 96.9–98.8; O2SAT 95–99
[2025-04-12 07:29] LABS: BASO # 0.0 10^3/uL (0.0-0.2); BASO % 0.5 % (0.0-1.0); EOS # 0.3 10^3/uL (0.0-0.5); EOS % 4.2 % (0.0-3.0); LYMPH # 1.1 10^3/uL (1.5-5.0); LYMPH % 19.0 % (24.0-44.0); MONO # 0.6 10^3/uL (0.0-0.8); MONO % 10.5 % (2.0-8.0); NEUTROPHILS # 3.8 10^3/uL (1.5-8.5); NEUTROPHILS % 65.3 % (36.0-66.0); PLATELET COUNT, AUTOMATED 325 10^3/uL (150-450)
[2025-04-12 08:02] LABS: CALCIUM LEVEL 8.6 MG/DL (8.5-10.1); CARBON DIOXIDE LEVEL 24 MMOL/L (20-31); CHLORIDE LEVEL 107 MMOL/L (98-107); CREATININE FOR GFR 0.82 MG/DL (0.55-1.30); GLOMERULAR FILTRATION RATE > 90.0 (>60); POTASSIUM SERUM 4.4 MMOL/L (3.5-5.1); SODIUM LEVEL 141 MMOL/L (136-145)
[2025-04-12] MEDS ORDERED: ROCURONIUM BROMIDE 50MG/5ML VIAL As Ordered ONE (09:00)
[2025-04-12] MEDS ORDERED: ONDANSETRON 4MG/2ML VIAL As Ordered ONE (09:00)
[2025-04-12] MEDS ORDERED: LIDOCAINE 2% 100 MG/5 ML SDV (FOR ANES.) As Ordered ONE (09:00)
[2025-04-12] MEDS ORDERED: dexAMETHasone 4 MG/ML 1 ML VIAL As Ordered ONE (09:00)
[2025-04-12] MEDS ORDERED: MIDAZOLAM INJ 2 MG/2 ML VIAL As Ordered ONE (09:01)
[2025-04-12] MEDS ORDERED: dexmedeTOMIDine (4 MCG/ML) 200 MCG/50 ML BTL As Ordered ONE (09:01)
[2025-04-12] MEDS ORDERED: ACETAMINOPHEN 1000MG/100ML IV BAG As Ordered ONE (09:07)
[2025-04-12] MEDS: INSULIN LISPRO (NovoLOG) PER UNIT As Ordered ONE (09:42)
[2025-04-12] MEDS: LIDOCAINE 1% SDV 30 ML VIAL As Ordered ONE (09:43)
[2025-04-12] MEDS ORDERED: SUGAMMADEX SODIUM 500 MG/5 ML VIAL As Ordered ONE (10:15)
[2025-04-12] MEDS ORDERED: SUGAMMADEX SODIUM 200 MG/2 ML VIAL As Ordered ONE (10:15)
[2025-04-12] MEDS ORDERED: GLUCAGON INJ 1 MG VIAL SC PRN (10:45)
[2025-04-12] MEDS ORDERED: GLUCOSE 4 GM CHEW PO PRN (10:45)
[2025-04-12] MEDS ORDERED: DEXTROSE 50% 50 ML SYRINGE IV PRN (10:45)
[2025-04-12] MEDS ORDERED: HYDROMORPHONE HCL 0.5 MG/0.5 ML SYRINGE IV PRN (10:45)
[2025-04-12] MEDS ORDERED: ONDANSETRON 4MG/2ML VIAL IV PRN (10:45)
[2025-04-12] MEDS: INSULIN LISPRO (NovoLOG) PER UNIT SC PRN (10:50)
[2025-04-12] MEDS: ceFAZolin SODIUM 2 GM in DEXTROSE 5% (D5W) ADV/MINI-BAG 50 ML IV SCH (13:00)
[2025-04-12] MEDS: PERCOCET 5MG/325MG TAB PO PRN (20:07)
[2025-04-13] VITALS: BP 120/66; TEMP 98.7; O2SAT 97
[2025-04-13 04:00] VITALS: BP 134/78; TEMP 97.7; O2SAT 98
[2025-04-13 06:13] LABS: BASO # 0.0 10^3/uL (0.0-0.2); BASO % 0.4 % (0.0-1.0); EOS # 0.2 10^3/uL (0.0-0.5); EOS % 2.3 % (0.0-3.0); LYMPH # 1.9 10^3/uL (1.5-5.0); LYMPH % 27.3 % (24.0-44.0); MONO # 0.6 10^3/uL (0.0-0.8); MONO % 8.3 % (2.0-8.0); NEUTROPHILS # 4.4 10^3/uL (1.5-8.5); NEUTROPHILS % 61.3 % (36.0-66.0); PLATELET COUNT, AUTOMATED 340 10^3/uL (150-450)
[2025-04-13 06:40] LABS: C REACTIVE PROTEIN QUANTITATIV 1.85 MG/DL (<1.0); CALCIUM LEVEL 8.5 MG/DL (8.5-10.1); CARBON DIOXIDE LEVEL 24 MMOL/L (20-31); CHLORIDE LEVEL 107 MMOL/L (98-107); CREATININE FOR GFR 0.88 MG/DL (0.55-1.30); GLOMERULAR FILTRATION RATE > 90.0 (>60); POTASSIUM SERUM 4.1 MMOL/L (3.5-5.1); SODIUM LEVEL 142 MMOL/L (136-145)
[2025-04-13 11:39] VITALS: BP 151/85; TEMP 98.4; O2SAT 99
[2025-04-13] MEDS: LanTUS (INSULIN GLARGINE INJ) 1 UNITS/0.01 ML SC ONE (16:52)
[2025-04-13] MEDS: INSULIN LISPRO (NovoLOG) PER UNIT SC SCH (18:06)
[2025-04-13 20:00] VITALS: BP 144/85; TEMP 98.3; O2SAT 99
[2025-04-14 04:00] VITALS: BP 149/89; TEMP 98.4; O2SAT 97
[2025-04-14 07:38] LABS: BASO # 0.1 10^3/uL (0.0-0.2); BASO % 0.7 % (0.0-1.0); EOS # 0.3 10^3/uL (0.0-0.5); EOS % 4.4 % (0.0-3.0); LYMPH # 2.2 10^3/uL (1.5-5.0); LYMPH % 30.6 % (24.0-44.0); MONO # 0.4 10^3/uL (0.0-0.8); MONO % 6.2 % (2.0-8.0); NEUTROPHILS # 4.1 10^3/uL (1.5-8.5); NEUTROPHILS % 57.4 % (36.0-66.0); PLATELET COUNT, AUTOMATED 378 10^3/uL (150-450)
[2025-04-14 08:03] LABS: C REACTIVE PROTEIN QUANTITATIV 1.06 MG/DL (<1.0); CALCIUM LEVEL 8.8 MG/DL (8.5-10.1); CARBON DIOXIDE LEVEL 28 MMOL/L (20-31); CHLORIDE LEVEL 104 MMOL/L (98-107); CREATININE FOR GFR 0.74 MG/DL (0.55-1.30); GLOMERULAR FILTRATION RATE > 90.0 (>60); POTASSIUM SERUM 4.0 MMOL/L (3.5-5.1); SODIUM LEVEL 141 MMOL/L (136-145)
[2025-04-14] MEDS: LanTUS (INSULIN GLARGINE INJ) 1 UNITS/0.01 ML SC SCH (08:05)
[2025-04-14 12:00] VITALS: BP 133/87; TEMP 98.6; O2SAT 97
[2025-04-14] MEDS: INSULIN LISPRO (NovoLOG) PER UNIT SC SCH (12:00)
[2025-04-14] MEDS: DAPTOmycin 750 MG in NS 50 ML IV SCH (18:22)
[2025-04-14 19:38] VITALS: BP 159/85; TEMP 98.6; O2SAT 98
[2025-04-15 04:00] VITALS: BP 124/72; TEMP 98.1; O2SAT 98
[2025-04-15 06:02] LABS: BASO # 0.0 10^3/uL (0.0-0.2); BASO % 0.5 % (0.0-1.0); EOS # 0.4 10^3/uL (0.0-0.5); EOS % 5.2 % (0.0-3.0); LYMPH # 2.3 10^3/uL (1.5-5.0); LYMPH % 31.8 % (24.0-44.0); MONO # 0.5 10^3/uL (0.0-0.8); MONO % 7.3 % (2.0-8.0); NEUTROPHILS # 4.0 10^3/uL (1.5-8.5); NEUTROPHILS % 54.1 % (36.0-66.0); PLATELET COUNT, AUTOMATED 416 10^3/uL (150-450)
[2025-04-15 06:24] LABS: C REACTIVE PROTEIN QUANTITATIV 0.53 MG/DL (<1.0); CALCIUM LEVEL 8.9 MG/DL (8.5-10.1); CARBON DIOXIDE LEVEL 28 MMOL/L (20-31); CHLORIDE LEVEL 104 MMOL/L (98-107); CREATININE FOR GFR 0.74 MG/DL (0.55-1.30); GLOMERULAR FILTRATION RATE > 90.0 (>60); POTASSIUM SERUM 4.0 MMOL/L (3.5-5.1); SODIUM LEVEL 141 MMOL/L (136-145)
[2025-04-15 07:53] LABS: CPK CREATINE PHOSPHOKINASE 17 U/L (34-145)
[2025-04-15 08:48] VITALS: BP 129/82
[2025-04-15] MEDS: SODIUM CHLORIDE 0.9% INJ 10 ML SYR IV SCH (09:00)
[2025-04-15] MEDS ORDERED: SODIUM CHLORIDE 0.9% INJ 10 ML SYR IV PRN (09:55)
[2025-04-15] MEDS ORDERED: NOVOINJ3 SC ×2 (10:22)
[2025-04-15] MEDS ORDERED: CEFP200T PO (10:22)
[2025-04-15] MEDS ORDERED: BASA100I SC (10:22)
[2025-04-15 12:00] VITALS: BP 166/94; TEMP 98.6; O2SAT 95
== END 2025-04-15 15:10 | disposition home or self-care (01) | DRG 314 ==
LOC: EDBD 15:23 → M ED 15:23 → M ED INP 22:51 → M MS4PR 04-11 13:47
PROVIDERS: ADMIT Student in an Organized Health Care Education/Training Program; ATTEND Student in an Organized Health Care Education/Training Program
PROC: B246ZZZ Ultrasonography of Right and Left Heart (ICD-10-PCS; 2025-04-11)
PROC: 0Y6U0Z0 Detachment at Left 3rd Toe, Complete, Open Approach (ICD-10-PCS; 2025-04-12)
PROC: 0Y6S0Z0 Detachment at Left 2nd Toe, Complete, Open Approach (ICD-10-PCS; principal; 2025-04-12 09:00)
DX: E11.69 Type 2 diabetes mellitus with other specified complication (principal); M86.172 Other acute osteomyelitis, left ankle and foot; R78.81 Bacteremia; E11.65 Type 2 diabetes mellitus with hyperglycemia; L03.116 Cellulitis of left lower limb; E87.5 Hyperkalemia; E87.1 Hypo-osmolality and hyponatremia; I10 Essential (primary) hypertension; L97.528 Non-pressure chronic ulcer of other part of left foot with other specified severity; J45.909 Unspecified asthma, uncomplicated; Z89.411 Acquired absence of right great toe; F41.9 Anxiety disorder, unspecified; F32.A Depression, unspecified; Z89.421 Acquired absence of other right toe(s); Z87.891 Personal history of nicotine dependence; S92.502D Displaced unspecified fracture of left lesser toe(s), subsequent encounter for fracture with routine healing; Z79.4 Long term (current) use of insulin; Z79.2 Long term (current) use of antibiotics; Z79.899 Other long term (current) drug therapy; Z88.8 Allergy status to other drugs, medicaments and biological substances

== ENCOUNTER → 2025-04-21 | Outpatient (REF) | payer OTHER ==
[~2025-04-21] MED LIST changes: +ACET-897 PO; +CEFP200T PO; +DOXY100C3 PO; +TRAM50TA2 PO
[2025-04-21 13:28] LABS: BASO # 0.1 10^3/uL (0.0-0.2); BASO % 0.5 % (0.0-1.0); EOS # 0.3 10^3/uL (0.0-0.5); EOS % 2.9 % (0.0-3.0); LYMPH # 1.8 10^3/uL (1.5-5.0); LYMPH % 16.7 % (24.0-44.0); MONO # 0.6 10^3/uL (0.0-0.8); MONO % 5.9 % (2.0-8.0); NEUTROPHILS # 8.0 10^3/uL (1.5-8.5); NEUTROPHILS % 73.5 % (36.0-66.0); PLATELET COUNT, AUTOMATED 533 10^3/uL (150-450)
[2025-04-21 13:51] LABS: ALT/SGPT 21 U/L (7.0-40); AST/SGOT 22 U/L (<34); C REACTIVE PROTEIN QUANTITATIV 0.53 MG/DL (<1.0); CALCIUM LEVEL 9.0 MG/DL (8.5-10.1); CARBON DIOXIDE LEVEL 28 MMOL/L (20-31); CHLORIDE LEVEL 98 MMOL/L (98-107); CREATININE FOR GFR 0.64 MG/DL (0.55-1.30); GLOMERULAR FILTRATION RATE > 90.0 (>60); POTASSIUM SERUM 4.9 MMOL/L (3.5-5.1); SODIUM LEVEL 136 MMOL/L (136-145)
[2025-04-21 13:58] LABS: CPK CREATINE PHOSPHOKINASE 97 U/L (34-145)
== END ==
LOC: M LAB REF 12:15
PROVIDERS: ATTEND Internal Medicine Infectious Disease
DX: M86.172 Other acute osteomyelitis, left ankle and foot (principal); B95.61 Methicillin susceptible Staphylococcus aureus infection as the cause of diseases classified elsewhere; E11.621 Type 2 diabetes mellitus with foot ulcer; L97.512 Non-pressure chronic ulcer of other part of right foot with fat layer exposed; L97.522 Non-pressure chronic ulcer of other part of left foot with fat layer exposed; R78.81 Bacteremia